=== PATIENT | male | born 1960 | race Caucasian/White ===

== ENCOUNTER → 2018-02-20 09:24 | Outpatient (CLI) | payer OTHER, SELFPAY ==
[2018-02-20 10:03] LABS: Hematocrit 45.6 % (41-53); Hemoglobin 15.8 g/dL (13.5-17.5); Mean Corpuscular HGB Conc 34.7 % (30-36); Mean Corpuscular Hemoglobin 30.5 PG (26-34); Platelet Count 305 X10^3/uL (150-400); Red Blood Cell Count 5.18 X10^6/uL (4.5-5.9); White Blood Cell Count 5.9 X10^3/uL (4.5-11.0)
[2018-02-20 10:50] LABS: Alanine Aminotransferase 35 IU/L (21-72); Albumin 4.6 g/dL (3.5-5.0); Albumin Globulin Ratio 1.6 (1.0-2.8); Alkaline Phosphatase 52 U/L (38-126); Aspartate Aminotransferase 22 IU/L (17-59); BUN Creatinine Ratio 17.8 (6-22); Bilirubin Total 0.9 mg/dL (0.2-1.3); Blood Urea Nitrogen 16 mg/dL (9-20); Calcium 9.5 mg/dL (8.4-10.2); Carbon Dioxide 31 mmol/L (22-32); Chloride 102 mmol/L (98-107); Cholesterol 209 mg/dL (140-199); Estimated Glomerular Filt Rate > 60.0 mL/min (>60); Globulin 2.9 g/dL (1.7-4.1); Glucose 99 mg/dL (70-100); HDL Cholesterol 54 mg/dL (40-60); HEMOLYSIS < 15 (0-50); LDL Cholesterol Calculated 140 mg/dL (<100); Potassium 4.8 mmol/L (3.4-5.1); Sodium 143 mmol/L (137-145); Total Protein 7.5 g/dL (6.3-8.2); Triglycerides 77 mg/dL (35-150)
[2018-02-20 11:13] LABS: Thyroid Stimulating Hormone 1.54 uIU/mL (0.47-4.68)
== END ==
DX: E78.5 Hyperlipidemia, unspecified (principal); I10 Essential (primary) hypertension
CPT/HCPCS: 36415; 80053; 80061; 84443; 85027

== ENCOUNTER 2019-04-29 16:03 | Emergency (ER) | payer OTHER, SELFPAY ==
[2019-04-29] VITALS (10 sets, daily range): BP systolic 138–167; BP diastolic 76–111; PULSE 74–87; RESP 15–21; TEMP 37–37.3; O2SAT 93–96; BMI 28.5
--- NOTE | 2019-04-29 16:11 | DI.RAD.S_ITS ---
PROCEDURE: XR CHEST 1V INDICATIONS: chest pain TECHNIQUE: One view of the chest was acquired. COMPARISON: [facility], , CHEST 1 VIEW, 03/08/2016, 18:36. FINDINGS: Surgical changes and devices: None. Lungs and pleura: Lungs are clear. No pleural effusions or pneumothorax. Mediastinum: Mediastinal contours appear normal. Heart size is normal. Bones and chest wall: No suspicious bony lesions. Overlying soft tissues appear unremarkable. IMPRESSION: No acute disease Dictated by: Mitul Kraus M.D. on 04/29/2019 at 16:38 Approved by: Mitul Kraus M.D. on 04/29/2019 at 16:41
--- NOTE | 2019-04-29 16:14 | ED.CHESTPAIN ---
HPI - Chest Pain General Chief Complaint: Chest Pain Stated Complaint: chest discomfort Time Seen by Provider: 04/29/19 16:09 Source: patient Mode of arrival: Ambulatory History of Present Illness HPI narrative: The patient is a 58-year-old male with history of coronary artery disease and stent presenting with chest pain. He says it started suddenly today around 9:30 a.m. center of his chest radiating to bilateral back of his arm in the triceps area and between his shoulder blades. He says it has persisted throughout the day but has definitely let up. He denies any worsening with exertion. He denies any shortness of breath with exertion no palpitations. He did try and take 1 nitroglycerin but he says it did not help. He takes is aspirin daily at night. He is followed by cardiology Dr. Palmer. He states previously he passed his treadmill test an 3 weeks later required stents. This feels similar to his previous DC. MD complaint: chest pain Onset (ago): hour(s) Duration: constant Onset: during rest Pain location: substernal Severity: mild Related Data Home Medications Medication Instructions Recorded Confirmed aspirin 81 mg PO QPM #0 04/17/10 04/29/19 Co Q-10 1 cap PO QPM #0 09/08/16 04/29/19 irbesartan 75 mg PO QAM 04/29/19 04/29/19 irbesartan 150 mg PO QPM 04/29/19 04/29/19 Allergies Allergy/AdvReac Type Severity Reaction Status Date / Time latex [LATEX] Allergy Severe SWELLING, Verified 04/29/19 16:09 RASH, ITCHING venom-honey bee Allergy Intermediate SWELLING Verified 04/29/19 16:09 [BEE VENOM (HONEY BEE)] penicillin V [PENICILLIN V] Allergy Unknown Unknown - Verified 04/29/19 16:09 happened when he was a child Review of Systems Review of Systems Narrative: GENERAL: Denies chills, fatigue, malaise, fever, sweats, travel HEENT: Denies sinus pain, ear pain, sore throat, difficulty swallowing, neck pain RESPIRATORY: Denies dyspnea, cough, wheezing, hemoptysis, sputum. CARDIOVASCULAR: See HPI GASTROINTESTINAL: Denies nausea, vomiting, abdominal pain, diarrhea, constipation, melena. : Denies dysuria, frequency, incontinence, hematuria, urinary retention, flank pain. MUSCULOSKELETAL: Denies weakness, joint pain, or bony pain SKIN: No rash, no erythema, no pruritus NEUROLOGIC: Denies weakness, dizziness, headache, numbness, change in speech, confusion PSYCHIATRIC: No concerning psychosocial issues. 12 point review of systems is negative except for those stated above and HPI Patient History Medical History Coronary artery disease (Acute) alcohol intake frequency: 0-2 drinks per day Substance Use Type: does not use Exam Initial Vital Signs Initial Vital Signs: Vital Signs Temperature 99.1 F 04/29/19 16:09 GENERAL: Well-appearing, well-nourished and in no acute distress. HEENT: Head atraumatic,EOMI, pupils reactive, face symmetric, CARDIOVASCULAR: Regular rate and rhythm without murmurs, rubs or gallops. RESPIRATORY: Breath sounds equal bilaterally, no wheezes rales or rhonchi. ABDOMEN: Soft, nontender. Normoactive bowel sounds all 4 quadrants. No guarding or rebound. EXTREMITIES: Normal range of motion, no clubbing or edema. Neurovascularly intact NEUROLOGICAL: Alert and oriented x4.Normal gait and speech. Cranial nerves II through XII grossly intact. SKIN: Warm, dry, no laceration, no petechiae, no rashes or lesions. Course Orders Ordered: ED Orders 04/29/19 16:10 Complete Blood Count AUTO DIFF Stat Comprehensive Metabolic Panel Stat Lipase Stat Partial Thromboplastin Time Stat Prothrombin Time INR Stat Troponin & CK Cardiac Panel Stat 04/29/19 16:11 XR chest 1V Stat EKG-12 Lead Stat Heparin Sodium/Dextrose (Heparin Drip) 25,000 unit in 500 mls @ 20 mls/hr IV CONT PRASHANT; Protocol Last Admin: 04/29/19 17:44 Dose: 1,000 units/hr, 20 mls/hr Documented by: BONITA Discontinued Medications Aspirin (Aspirin Chew) 324 mg PO NOW ONE Stop: 04/29/19 16:24 Last Admin: 04/29/19 16:53 Dose: 324 mg Documented by: BONITA Heparin Sodium (Porcine) (Heparin) 5,000 unit IV NOW ONE Stop: 04/29/19 17:11 Last Admin: 04/29/19 17:40 Dose: 5,000 unit Documented by: BONITA Lorazepam (Ativan) 1 mg PO NOW ONE Stop: 04/29/19 17:27 Last Admin: 04/29/19 17:30 Dose: 1 mg Documented by: BONITA Metoprolol Tartrate (Lopressor) 25 mg PO NOW ONE Stop: 04/29/19 18:01 Last Admin: 04/29/19 18:26 Dose: 25 mg Documented by: BONITA Morphine Sulfate (Morphine) 2 mg IV NOW ONE Stop: 04/29/19 18:23 Last Admin: 04/29/19 18:26 Dose: 2 mg Documented by: BONITA Nitroglycerin (Nitrostat) 0.4 mg SL NOW ONE Stop: 04/29/19 16:24 Last Admin: 04/29/19 16:54 Dose: 0.4 mg Documented by: BONITA Vital Signs Vital signs: Vital Signs - 8 hr 04/29/19 16:09 04/29/19 16:30 04/29/19 16:54 Temperature 99.1 F Pulse Rate 82 87 Respiratory Rate 16 Blood Pressure 144/76 H Blood Pressure [Right Arm] 144/76 H Pulse Oximetry 96 04/29/19 17:31 04/29/19 18:41 Temperature Pulse Rate 86 81 Respiratory Rate 21 18 Blood Pressure Blood Pressure [Right Arm] 148/86 H 154/95 H Pulse Oximetry 93 94 MDM - Chest Pain Lab Data Attestation: I reviewed the patient's lab results. Result diagrams: 04/29/19 16:10 04/29/19 16:10 Labs: Lab Results 04/29/19 04/29/19 04/29/19 Range/Units 16:10 16:10 16:10 WBC 8.1 (4.5-11.0) X10^3/uL RBC 4.86 (4.5-5.9) X10^6/uL Hgb 15.0 (13.5-17.5) g/dL Hct 42.9 (41-53) % MCV 88.3 (80-100) fL MCH 30.8 (26-34) PG MCHC 34.8 (30-36) % RDW 12.9 (11.6-14.8) % Plt Count 328 (150-400) X10^3/uL Neut % (Auto) 66.0 (50-75) % Lymph % (Auto) 24.1 L (25-40) % [place] % (Auto) 8.0 (3-14) % Eos % (Auto) 1.3 L (2-4) % Baso % (Auto) 0.6 (0-2) % Neut # (Auto) 5400 (6215-8211) /uL Lymph # (Auto) 2000 (7927-4988) /uL [place] # (Auto) 700 (0-900) /uL Eos # (Auto) 100 (0-450) /uL Baso # (Auto) 0 (0-100) /uL PT 10.9 (10.1-12.7) SECONDS INR 1.0 (0.9-1.3) APTT 31 (26.4-36.2) SECONDS Sodium 136 L (137-145) mmol/L Potassium 4.1 (3.4-5.1) mmol/L Chloride 99 (98-107) mmol/L Carbon Dioxide 28 (22-32) mmol/L BUN 20 (9-20) mg/dL Creatinine 1.00 (0.66-1.25) mg/dL Estimated GFR > 60.0 (>60) mL/min BUN/Creatinine Ratio 20.0 (6-22) Glucose 142 H (70-100) mg/dL Calcium 9.4 (8.4-10.2) mg/dL Total Bilirubin 0.6 (0.2-1.3) mg/dL AST 33 (17-59) IU/L ALT 39 (<50) IU/L Alkaline Phosphatase 63 (38-126) U/L Total Creatine Kinase 74 (55-170) U/L CK-MB (CK-2) TNP CK-MB (CK-2) Rel Index TNP Troponin I 0.641 H* (0.01-0.034) ng/mL Total Protein 7.5 (6.3-8.2) g/dL Albumin 4.7 (3.5-5.0) g/dL Globulin 2.8 (1.7-4.1) g/dL Albumin/Globulin Ratio 1.7 (1.0-2.8) Lipase 170 (23-300) U/L Imaging Data Chest x-ray: Radiologist's impression: PROCEDURE: XR CHEST 1V INDICATIONS: chest pain TECHNIQUE: One view of the chest was acquired. COMPARISON: [facility], , CHEST 1 VIEW, 03/08/2016, 18:36. FINDINGS: Surgical changes and devices: None. Lungs and pleura: Lungs are clear. No pleural effusions or pneumothorax. Mediastinum: Mediastinal contours appear normal. Heart size is normal. Bones and chest wall: No suspicious bony lesions. Overlying soft tissues appear unremarkable. IMPRESSION: No acute disease Dictated by: Mitul Kraus M.D. on 04/29/2019 at 16:38 ECG Data Attestation: I personally reviewed and interpreted this ECG as follows: Prior ECG tracings: available for review Interpretation: EKG 1. Normal sinus rhythm rate 89 p.r. interval 156 QRS [address] elevation depression or T-wave inversion Q-waves noted in lead 3 and AVF but no changes from 2016 EKG 2. Sinus rhythm rate 93 no changes MDM Narrative Medical decision making narrative: 17:52 cardiology out of telling him doctor Richard was an update on patient's symptoms test results agrees with transfer and patient likely to have a heart catheterization. Trauma were the patient is on heparin and recommends patient also get Lopressor as well. 18:00 Dr. Dodd hospitalist at [facility] has been updated patient's symptoms test results and agrees with transfer. Patient was given nitroglycerin aspirin upon arrival he states the nitroglycerin did not help his pain significantly. Troponin returned and elevated 0.64, cut off is 0.12. Heparin drip is started. He continues to have pain in his quite anxious about the situation he is given morphine and Ativan which has seemed to help. He agrees with transfer to [facility] for further testing and evaluation. Discharge Plan Departure Patient Disposition: Home Clinical Impression: Acute non-ST elevation myocardial infarction (NSTEMI) Prescriptions: No Action aspirin 81 mg Tablet,Delayed Release (Dr/Ec) 81 mg PO QPM Qty: 0 RF: 0 Co Q-10 1 cap PO QPM Qty: 0 RF: 0 irbesartan 150 mg tablet 75 mg PO QAM RF: 0 irbesartan 150 mg tablet 150 mg PO QPM RF: 0
[2019-04-29 16:18] LABS: Add Manual Diff / Slide Review NO; Basophils Absolute Auto 0 /uL (0-100); Basophils Percent Auto 0.6 % (0-2); Eosinophils Absolute Auto 100 /uL (0-450); Eosinophils Percent Auto 1.3 % (2-4); Hematocrit 42.9 % (41-53); Lymphocytes Absolute Auto 2000 /uL (1100-4500); Lymphocytes Percent Auto 24.1 % (25-40); Mean Corpuscular HGB Conc 34.8 % (30-36); Mean Corpuscular Hemoglobin 30.8 PG (26-34); Mean Corpuscular Volume 88.3 fL (80-100); Monocytes Absolute Auto 700 /uL (0-900); Neutrophils Absolute Auto 5400 /uL (1500-7000); Platelet Count 328 X10^3/uL (150-400); Red Blood Cell Count 4.86 X10^6/uL (4.5-5.9); Red Cell Distribution Width 12.9 % (11.6-14.8); White Blood Cell Count 8.1 X10^3/uL (4.5-11.0)
[2019-04-29 16:25] LABS: Prothrombin Time 10.9 SECONDS (10.1-12.7)
[2019-04-29 16:28] LABS: PTT Partial Thromboplastin Tim 31 SECONDS (26.4-36.2)
[2019-04-29 16:32] LABS: Alanine Aminotransferase 39 IU/L (<50); Albumin 4.7 g/dL (3.5-5.0); Albumin Globulin Ratio 1.7 (1.0-2.8); Alkaline Phosphatase 63 U/L (38-126); Aspartate Aminotransferase 33 IU/L (17-59); Bilirubin Total 0.6 mg/dL (0.2-1.3); Blood Urea Nitrogen 20 mg/dL (9-20); Calcium 9.4 mg/dL (8.4-10.2); Carbon Dioxide 28 mmol/L (22-32); Chloride 99 mmol/L (98-107); Creatine Kinase 74 U/L (55-170); Estimated Glomerular Filt Rate > 60.0 mL/min (>60); Globulin 2.8 g/dL (1.7-4.1); Glucose 142 mg/dL (70-100); HEMOLYSIS 18 (0-50); Lipase 170 U/L (23-300); Potassium 4.1 mmol/L (3.4-5.1); Sodium 136 mmol/L (137-145); Total Protein 7.5 g/dL (6.3-8.2)
[2019-04-29] MEDS: ASPIRIN 81 MG CHEW TAB 324 MG PO (16:53)
[2019-04-29] MEDS: NITROGLYCERIN 0.4 MG SL TAB SL (16:54)
[2019-04-29 17:06] LABS: Troponin I 0.641 ng/mL (0.01-0.034)
[2019-04-29] MEDS: LORazepam 0.5 MG TABLET 1 MG PO (17:30)
[2019-04-29] MEDS: HEPARIN 5,000 UNIT/ML VIAL 5000 UNIT IV (17:40)
[2019-04-29] MEDS: HEPARIN DRIP 25,000 UNIT/500 ML IV.SOLN 20 UNIT IV (17:44)
[2019-04-29] MEDS: MORPHINE 2 MG/ML INJ IV ×2 (18:26→21:59)
[2019-04-29] MEDS: METOPROLOL IR 25 MG TABLET PO (18:26)
[2019-04-29] MEDS: LORazepam 2 MG/ML INJ 0.5 MG IV (21:54)
--- NOTE | 2019-05-25 20:38 | PC.NURSE ---
Late entry IV stop time: heparin gtt. Pt transferred with heparin drip still infusing at 20 mls/hr on 04/29/19 at 2210.
== END 2019-04-29 22:10 | disposition home or self-care (01) ==
PROVIDERS: Emergency Provider Emergency Medicine
DX: I21.4 Non-ST elevation (NSTEMI) myocardial infarction (principal); R79.89 Other specified abnormal findings of blood chemistry; I25.10 Atherosclerotic heart disease of native coronary artery without angina pectoris; Z95.5 Presence of coronary angioplasty implant and graft
CPT/HCPCS: 36415; 71045; 80053; 82550; 83690; 84484; 85025; 85610; 85730; 93005; 93010; 96365; 96366; 96375; 96376; 99285; 99291; 99292; J1644; J2060; J2270

== ENCOUNTER 2019-05-03 09:46 | Emergency (ER) | payer OTHER, SELFPAY ==
--- NOTE | 2019-05-03 09:59 | DI.RAD.S_ITS ---
PROCEDURE: XR CHEST 1V INDICATIONS: chest pain TECHNIQUE: One view of the chest was acquired. COMPARISON: [facility], CR, XR CHEST 1V, 04/29/2019, 16:19. FINDINGS: Surgical changes and devices: None. Lungs and pleura: A calcified nodule is identified within the left upper lobe that is unchanged since the prior study and likely represents a calcified granuloma. This has been present dating back to 2009. No focal pulmonary consolidation is evident. There is no effusion or pneumothorax. Mediastinum: Mediastinal contours appear normal. Heart size is normal. Bones and chest wall: No suspicious bony lesions. Degenerative changes of the spine and shoulders are not well characterized. Overlying soft tissues appear unremarkable. IMPRESSION: Stable chest. No acute cardiopulmonary process is evident. Dictated by: Prince Rodriguez M.D. on 05/03/2019 at 9:44 Approved by: Prince Rodriguez M.D. on 05/03/2019 at 9:45
[2019-05-03 10:00] VITALS: BP 154/69; PULSE 76; RESP 16; TEMP 36.7; O2SAT 99
--- NOTE | 2019-05-03 10:06 | ED.CHESTPAIN ---
HPI - Chest Pain General Chief Complaint: Chest Pain Stated Complaint: heart attack on monday/chest pain ongoing Time Seen by Provider: 05/03/19 09:48 Source: patient Mode of arrival: Family Vehicle Limitations: no limitations History of Present Illness HPI narrative: Patient is a 58-year-old male With known history of coronary artery disease, sent to [facility] 4 days ago for non-STEMI where he had stents placed again in the RCA. He had pain and discomfort afterwards what discharge was held due to pericarditis. He was discharged yesterday presenting with increasing chest pain today. It goes over to the right side of his chest no increased shortness of breath. It is not any worse with exertion or position. MD complaint: chest pain Related Data Home Medications Medication Instructions Recorded Confirmed aspirin 81 mg PO QPM #0 04/17/10 04/29/19 Co Q-10 1 cap PO QPM #0 09/08/16 04/29/19 irbesartan 75 mg PO QAM 04/29/19 04/29/19 irbesartan 150 mg PO QPM 04/29/19 04/29/19 Previous Rx's Medication Instructions Recorded hydrocodone-acetaminophen [Shields] 1 tab PO Q4-6H PRN #10 tab 05/03/19 Allergies Allergy/AdvReac Type Severity Reaction Status Date / Time latex [LATEX] Allergy Severe SWELLING, Verified 04/29/19 16:09 RASH, ITCHING venom-honey bee Allergy Intermediate SWELLING Verified 04/29/19 16:09 [BEE VENOM (HONEY BEE)] penicillin V [PENICILLIN V] Allergy Unknown Unknown - Verified 04/29/19 16:09 happened when he was a child topical antiseptic used Allergy Severe Rash Uncoded 04/29/19 19:40 before cath Review of Systems Review of Systems Narrative: GENERAL: Denies chills, fatigue, malaise, fever, sweats, travel HEENT: Denies sinus pain, ear pain, sore throat, difficulty swallowing, neck pain RESPIRATORY: Denies dyspnea, cough, wheezing, hemoptysis, sputum. CARDIOVASCULAR: See HPI GASTROINTESTINAL: Denies nausea, vomiting, abdominal pain, diarrhea, constipation, melena. : Denies dysuria, frequency, incontinence, hematuria, urinary retention, flank pain. MUSCULOSKELETAL: Denies weakness, joint pain, or bony pain SKIN: No rash, no erythema, no pruritus NEUROLOGIC: Denies weakness, dizziness, headache, numbness, change in speech, confusion PSYCHIATRIC: No concerning psychosocial issues. 12 point review of systems is negative except for those stated above and HPI Patient History Social History Smoking Status: Never smoker Smoking Status: Never smoker alcohol intake frequency: 0-2 drinks per day Substance Use Type: does not use Exam Initial Vital Signs Initial Vital Signs: Vital Signs Temperature 98.0 F 05/03/19 10:00 Pulse Rate 76 05/03/19 10:00 Respiratory Rate 16 05/03/19 10:00 Blood Pressure 154/69 H 05/03/19 10:00 Pulse Oximetry 99 05/03/19 10:00 GENERAL: Well-appearing, well-nourished and in no acute distress. HEENT: Head atraumatic,EOMI, pupils reactive, face symmetric, moist mucous membranes CARDIOVASCULAR: Regular rate and rhythm without murmurs, rubs or gallops. RESPIRATORY: Breath sounds equal bilaterally, no wheezes rales or rhonchi. ABDOMEN: Soft, nontender. Normoactive bowel sounds all 4 quadrants. No guarding or rebound. EXTREMITIES: Normal range of motion, no clubbing or edema. Neurovascularly intact NEUROLOGICAL: Alert and oriented x4.Normal gait and speech. Cranial nerves II through XII grossly intact. SKIN: Warm, dry, no laceration, no petechiae, no rashes or lesions. Course Orders Ordered: ED Orders 05/03/19 09:59 XR chest 1V Stat EKG-12 Lead Stat 05/03/19 10:03 Complete Blood Count AUTO DIFF Stat Comprehensive Metabolic Panel Stat Lipase Stat Partial Thromboplastin Time Stat Prothrombin Time INR Stat Troponin & CK Cardiac Panel Stat 05/03/19 11:19 CT angio chest PE protocol Stat 05/03/19 12:14 Troponin I Stat Discontinued Medications Ketorolac Tromethamine (Toradol) 30 mg IV NOW ONE Stop: 05/03/19 10:20 Last Admin: 05/03/19 10:35 Dose: 30 mg Documented by: ZARIA Lorazepam (Ativan) 0.5 mg IV NOW ONE Stop: 05/03/19 12:26 Last Admin: 05/03/19 12:48 Dose: 0.5 mg Documented by: ZARIA Morphine Sulfate (Morphine) 2 mg IV NOW ONE Stop: 05/03/19 10:07 Last Admin: 05/03/19 10:15 Dose: 2 mg Documented by: ZARIA Consultations Consultation #1: Dr. Solorzano, cardiology, updated patient's symptoms test results. Agrees with repeat troponin he has reviewed records. If repeat troponin is the same or lower can follow up outpatient Time: 11:17 Consultation #2: Dr. Solorzano recontact Repeat troponin is slightly more elevated, at this time no significant elevation. Recommend pain medication and outpatient follow-up. Time: 13:22 Vital Signs Vital signs: Vital Signs - 8 hr 05/03/19 12:14 05/03/19 13:00 05/03/19 13:30 Pulse Rate 62 61 62 Respiratory Rate 18 18 15 Blood Pressure [Right Arm] 135/83 136/83 128/86 Pulse Oximetry 99 97 96 MDM - Chest Pain Lab Data Attestation: I reviewed the patient's lab results. Result diagrams: 05/03/19 10:03 05/03/19 10:03 Labs: Lab Results 05/03/19 05/03/19 05/03/19 Range/Units 10:03 10:03 10:03 WBC 8.9 (4.5-11.0) X10^3/uL RBC 5.07 (4.5-5.9) X10^6/uL Hgb 15.6 (13.5-17.5) g/dL Hct 44.6 (41-53) % MCV 88.1 (80-100) fL MCH 30.8 (26-34) PG MCHC 35.0 (30-36) % RDW 13.0 (11.6-14.8) % Plt Count 324 (150-400) X10^3/uL Neut % (Auto) 70.2 (50-75) % Lymph % (Auto) 17.9 L (25-40) % [place] % (Auto) 7.9 (3-14) % Eos % (Auto) 3.4 (2-4) % Baso % (Auto) 0.6 (0-2) % Neut # (Auto) 6300 (1697-7145) /uL Lymph # (Auto) 1600 (6268-3942) /uL [place] # (Auto) 700 (0-900) /uL Eos # (Auto) 300 (0-450) /uL Baso # (Auto) 100 (0-100) /uL PT 11.2 (10.1-12.7) SECONDS INR 1.0 (0.9-1.3) APTT 34 D (26.4-36.2) SECONDS Sodium 140 (137-145) mmol/L Potassium 4.4 (3.4-5.1) mmol/L Chloride 104 (98-107) mmol/L Carbon Dioxide 26 (22-32) mmol/L BUN 17 (9-20) mg/dL Creatinine 0.90 (0.66-1.25) mg/dL Estimated GFR > 60.0 (>60) mL/min BUN/Creatinine Ratio 18.9 (6-22) Glucose 98 (70-100) mg/dL Calcium 10.4 H (8.4-10.2) mg/dL Total Bilirubin 0.9 (0.2-1.3) mg/dL AST 76 H (17-59) IU/L ALT 93 H (<50) IU/L Alkaline Phosphatase 65 (38-126) U/L Total Creatine Kinase 64 (55-170) U/L CK-MB (CK-2) TNP CK-MB (CK-2) Rel Index TNP Troponin I 0.924 H* (0.01-0.034) ng/mL Total Protein 8.4 H (6.3-8.2) g/dL Albumin 4.9 (3.5-5.0) g/dL Globulin 3.5 (1.7-4.1) g/dL Albumin/Globulin Ratio 1.4 (1.0-2.8) Lipase 131 (23-300) U/L // Range/Units 12:14 WBC (4.5-11.0) X10^3/uL RBC (4.5-5.9) X10^6/uL Hgb (13.5-17.5) g/dL Hct (41-53) % MCV (80-100) fL MCH (26-34) PG MCHC (30-36) % RDW (11.6-14.8) % Plt Count (150-400) X10^3/uL Neut % (Auto) (50-75) % Lymph % (Auto) (25-40) % [place] % (Auto) (3-14) % Eos % (Auto) (2-4) % Baso % (Auto) (0-2) % Neut # (Auto) (0200-9600) /uL Lymph # (Auto) (6467-8262) /uL [place] # (Auto) (0-900) /uL Eos # (Auto) (0-450) /uL Baso # (Auto) (0-100) /uL PT (10.1-12.7) SECONDS INR (0.9-1.3) APTT (26.4-36.2) SECONDS Sodium (137-145) mmol/L Potassium (3.4-5.1) mmol/L Chloride (98-107) mmol/L Carbon Dioxide (22-32) mmol/L BUN (9-20) mg/dL Creatinine (0.66-1.25) mg/dL Estimated GFR (>60) mL/min BUN/Creatinine Ratio (6-22) Glucose (70-100) mg/dL Calcium (8.4-10.2) mg/dL Total Bilirubin (0.2-1.3) mg/dL AST (17-59) IU/L ALT (<50) IU/L Alkaline Phosphatase (38-126) U/L Total Creatine Kinase (55-170) U/L CK-MB (CK-2) CK-MB (CK-2) Rel Index Troponin I 0.969 H* (0.01-0.034) ng/mL Total Protein (6.3-8.2) g/dL Albumin (3.5-5.0) g/dL Globulin (1.7-4.1) g/dL Albumin/Globulin Ratio (1.0-2.8) Lipase (23-300) U/L Imaging Data Chest x-ray: Radiologist's impression: PROCEDURE: XR CHEST 1V INDICATIONS: chest pain TECHNIQUE: One view of the chest was acquired. COMPARISON: [facility], , XR CHEST 1V, 04/29/2019, 16:19. FINDINGS: Surgical changes and devices: None. Lungs and pleura: A calcified nodule is identified within the left upper lobe that is unchanged since the prior study and likely represents a calcified granuloma. This has been present dating back to 2009. No focal pulmonary consolidation is evident. There is no effusion or pneumothorax. Mediastinum: Mediastinal contours appear normal. Heart size is normal. Bones and chest wall: No suspicious bony lesions. Degenerative changes of the spine and shoulders are not well characterized. Overlying soft tissues appear unremarkable. IMPRESSION: Stable chest. No acute cardiopulmonary process is evident. Dictated by: Prince Rodriguez M.D. on 05/03/2019 at 9:44 CT scan - chest: Radiologist's impression: PROCEDURE: CT ANGIO CHEST PE PROTOCOL INDICATIONS: chest pain post cardiac cath TECHNIQUE: After the administration of intravenous contrast, 2 mm thick sections acquired from the pulmonary apices to the posterior costophrenic angles. 3-dimensional maximum intensity projection (MIP) coronal and sagittal reformats were then acquired through the thorax. For radiation dose reduction, the following was used: automated exposure control, adjustment of mA and/or kV according to patient size. COMPARISON: None. FINDINGS: Image quality: Excellent. Pulmonary arteries: Pulmonary arteries are normal in size, and demonstrate no intraluminal filling defects to suggest central pulmonary embolism. Lungs and pleura: Lungs are clear. No pleural effusions or pneumothorax. Central and peripheral airways are patent. Mediastinum: Heart is enlarged, without pericardial effusion. Atherosclerotic calcifications are noted in the aorta, great vessels and the coronary vasculature. Endovascular stents noted in the coronary vasculature. No mediastinal or hilar adenopathy. Thoracic aorta is normal in caliber and enhancement. Esophagus is normal in caliber, without hiatal hernia. Bones and chest wall: No suspicious bony lesions. Ribs and thoracic spine appear intact throughout. Spine degenerative disc disease and facet arthropathy. Thyroid gland is within normal limits where visualized. No axillary or supraclavicular adenopathy. Abdomen: Visualized upper abdominal solid organs appear normal in the early arterial phase of enhancement. IMPRESSION: 1. No pulmonary embolus. 2. Cardiomegaly. 3. Atherosclerosis including dense atherosclerotic calcifications in the coronary vascular. Endovascular stents also noted in the coronary vasculature. Dictated by: Ninoska Alvarez MD, PhD on 05/03/2019 at 11:43 ECG Data Attestation: I personally reviewed and interpreted this ECG as follows: Prior ECG tracings: available for review Interpretation: Normal sinus rhythm rate 73 p.r. interval 149 QRS [address] elevation or depressions similar to previous EKG MDM Narrative Medical decision making narrative: The patient's old records have been reviewed peak troponin 1.7. Initial troponin 0.92 which is lower than what it has been. He is given morphine and Toradol to help with pain and possible pericarditis. Possible pericardial effusion from recent heart catheterization. CT also to rule out any sort of PE. CT was negative for PE and pericardial effusion. The patient's repeat troponin 0.96, spoke with cardiology not a significant elevation, recommends pain control and outpatient follow-up. I discussed all findings with the patient , Education has been performed regarding treatment plan, diagnosis, warning signs and symptoms and all concerns have been addressed. Verbally agree with and understood all of the above. Discharge Plan Departure Patient Disposition: Home Clinical Impression: Atypical chest pain Discharge Date/Time: 05/03/19 13:53 Instructions: DI for Atypical Chest Pain Activity Restrictions/Additional Instructions: *You have been diagnosed with atypical chest pain *What to do: At this time her CT scan is negative. Your troponin is generally trending downwards. *Continue to take medications as directed Shields 1 tablet every 6 hours needed for severe pain *Follow up with your primary care provider in 2-3 days Follow-up with cardiology *Return to ER if you should have increasing chest pain shortness of breath or any new, worsening or concerning symptoms CONTROLLED SUBSTANCE DISCHARGE (Narcotoic/benzodiazepine/Flexeril/Phenergan) 1. You have been prescribed narcotic medications, it does have acetaminophen/Tylenol/paracetamol in it so do not take extra Tylenol or Tylenol containing products 2. Please understand that we cannot provide further refills of narcotics, benzodiazepines or controlled substances through the ED and her pain management will need to be through your provider. 3. While on these medications you cannot drive or operate heavy machinery. 4. You cannot sign legal documents or perform any duties such as this. 5. As long as you're taking opiate pain medications he should also be taking a stool softener such as Colace, Dulcolax, MiraLAX or prune juice, to help avoid constipation. Prescriptions: New hydrocodone-acetaminophen [Shields] 5-325 mg tablet 1 tab PO Q4-6H PRN (Reason: pain) Qty: 10 RF: 0 No Action aspirin 81 mg Tablet,Delayed Release (Dr/Ec) 81 mg PO QPM Qty: 0 RF: 0 Co Q-10 1 cap PO QPM Qty: 0 RF: 0 irbesartan 150 mg tablet 75 mg PO QAM RF: 0 irbesartan 150 mg tablet 150 mg PO QPM RF: 0 Referrals: Peyton Raymond MD [Primary Care Provider] - Joel Andino MD [Non-Staff] -
[2019-05-03 10:10] LABS: Add Manual Diff / Slide Review NO; Basophils Absolute Auto 100 /uL (0-100); Basophils Percent Auto 0.6 % (0-2); Eosinophils Absolute Auto 300 /uL (0-450); Eosinophils Percent Auto 3.4 % (2-4); Hematocrit 44.6 % (41-53); Hemoglobin 15.6 g/dL (13.5-17.5); Lymphocytes Absolute Auto 1600 /uL (1100-4500); Lymphocytes Percent Auto 17.9 % (25-40); Mean Corpuscular Hemoglobin 30.8 PG (26-34); Mean Corpuscular Volume 88.1 fL (80-100); Monocytes Absolute Auto 700 /uL (0-900); Monocytes Percent Auto 7.9 % (3-14); Neutrophils Absolute Auto 6300 /uL (1500-7000); Neutrophils Percent Auto 70.2 % (50-75); Platelet Count 324 X10^3/uL (150-400); Red Blood Cell Count 5.07 X10^6/uL (4.5-5.9); White Blood Cell Count 8.9 X10^3/uL (4.5-11.0)
[2019-05-03] MEDS: MORPHINE 2 MG/ML INJ IV (10:15)
[2019-05-03 10:17] LABS: Prothrombin Time 11.2 SECONDS (10.1-12.7)
[2019-05-03 10:19] LABS: PTT Partial Thromboplastin Tim 34 SECONDS (26.4-36.2)
[2019-05-03 10:21] LABS: Alanine Aminotransferase 93 IU/L (<50); Albumin 4.9 g/dL (3.5-5.0); Albumin Globulin Ratio 1.4 (1.0-2.8); Alkaline Phosphatase 65 U/L (38-126); Aspartate Aminotransferase 76 IU/L (17-59); BUN Creatinine Ratio 18.9 (6-22); Bilirubin Total 0.9 mg/dL (0.2-1.3); Blood Urea Nitrogen 17 mg/dL (9-20); Calcium 10.4 mg/dL (8.4-10.2); Carbon Dioxide 26 mmol/L (22-32); Chloride 104 mmol/L (98-107); Creatine Kinase 64 U/L (55-170); Estimated Glomerular Filt Rate > 60.0 mL/min (>60); Globulin 3.5 g/dL (1.7-4.1); Glucose 98 mg/dL (70-100); HEMOLYSIS < 15 (0-50); Lipase 131 U/L (23-300); Potassium 4.4 mmol/L (3.4-5.1); Sodium 140 mmol/L (137-145); Total Protein 8.4 g/dL (6.3-8.2)
[2019-05-03] MEDS: KETOROLAC 60 MG/2 ML VIAL 30 MG IV (10:35)
[2019-05-03 10:55] LABS: Troponin I 0.924 ng/mL (0.01-0.034)
--- NOTE | 2019-05-03 11:19 | DI.CT.S_ITS ---
PROCEDURE: CT ANGIO CHEST PE PROTOCOL INDICATIONS: chest pain post cardiac cath TECHNIQUE: After the administration of intravenous contrast, 2 mm thick sections acquired from the pulmonary apices to the posterior costophrenic angles. 3-dimensional maximum intensity projection (MIP) coronal and sagittal reformats were then acquired through the thorax. For radiation dose reduction, the following was used: automated exposure control, adjustment of mA and/or kV according to patient size. COMPARISON: None. FINDINGS: Image quality: Excellent. Pulmonary arteries: Pulmonary arteries are normal in size, and demonstrate no intraluminal filling defects to suggest central pulmonary embolism. Lungs and pleura: Lungs are clear. No pleural effusions or pneumothorax. Central and peripheral airways are patent. Mediastinum: Heart is enlarged, without pericardial effusion. Atherosclerotic calcifications are noted in the aorta, great vessels and the coronary vasculature. Endovascular stents noted in the coronary vasculature. No mediastinal or hilar adenopathy. Thoracic aorta is normal in caliber and enhancement. Esophagus is normal in caliber, without hiatal hernia. Bones and chest wall: No suspicious bony lesions. Ribs and thoracic spine appear intact throughout. Spine degenerative disc disease and facet arthropathy. Thyroid gland is within normal limits where visualized. No axillary or supraclavicular adenopathy. Abdomen: Visualized upper abdominal solid organs appear normal in the early arterial phase of enhancement. IMPRESSION: 1. No pulmonary embolus. 2. Cardiomegaly. 3. Atherosclerosis including dense atherosclerotic calcifications in the coronary vascular. Endovascular stents also noted in the coronary vasculature. Dictated by: Ninoska Alvarez MD, PhD on 05/03/2019 at 11:43 Approved by: Ninoska Alvarez MD, PhD on 05/03/2019 at 11:47
[2019-05-03 12:14] VITALS: BP 135/83; PULSE 62; RESP 18; O2SAT 99
[2019-05-03] MEDS: LORazepam 2 MG/ML INJ 0.5 MG IV (12:48)
[2019-05-03 12:51] LABS: Troponin I 0.969 ng/mL (0.01-0.034)
[2019-05-03 13:00] VITALS: BP 136/83; PULSE 61; RESP 18; O2SAT 97
[2019-05-03 13:30] VITALS: BP 128/86; PULSE 62; RESP 15; O2SAT 96
== END 2019-05-03 13:53 | disposition home or self-care (01) ==
PROVIDERS: Emergency Provider Emergency Medicine; PCP Student in an Organized Health Care Education/Training Program
DX: R07.89 Other chest pain (principal)
CPT/HCPCS: 36415; 71045; 71275; 80053; 82550; 83690; 84484; 85025; 85610; 85730; 93005; 93010; 96374; 96375; 99284; 99285; J1885; J2060; J2270; Q9967

== ENCOUNTER 2019-06-05 18:48 | Emergency (ER) | payer OTHER, SELFPAY ==
--- NOTE | 2019-06-05 18:57 | ED_ITS ---
HPI - Fall General Chief Complaint: Fall Stated Complaint: fall, hit back of head, on thinners Time Seen by Provider: 06/05/19 18:56 Related Data Home Medications Medication Instructions Recorded Confirmed aspirin 81 mg PO QPM #0 04/17/10 04/29/19 Co Q-10 1 cap PO QPM #0 09/08/16 04/29/19 irbesartan 75 mg PO QAM 04/29/19 04/29/19 irbesartan 150 mg PO QPM 04/29/19 04/29/19 Previous Rx's Medication Instructions Recorded hydrocodone-acetaminophen [[place]] 1 tab PO Q4-6H PRN #10 tab 05/03/19 Allergies Allergy/AdvReac Type Severity Reaction Status Date / Time latex [LATEX] Allergy Severe SWELLING, Verified 04/29/19 16:09 RASH, ITCHING venom-honey bee Allergy Intermediate SWELLING Verified 04/29/19 16:09 [BEE VENOM (HONEY BEE)] penicillin V [PENICILLIN V] Allergy Unknown Unknown - Verified 04/29/19 16:09 happened when he was a child topical antiseptic used Allergy Severe Rash Uncoded 04/29/19 19:40 before cath Patient History Social History Smoking Status: Never smoker Smoking Status: Never smoker alcohol intake frequency: 0-2 drinks per day Substance Use Type: does not use Discharge Plan Departure Prescriptions: No Action aspirin 81 mg Tablet,Delayed Release (Dr/Ec) 81 mg PO QPM Qty: 0 RF: 0 Co Q-10 1 cap PO QPM Qty: 0 RF: 0 irbesartan 150 mg tablet 75 mg PO QAM RF: 0 irbesartan 150 mg tablet 150 mg PO QPM RF: 0 hydrocodone-acetaminophen [[place]] 5-325 mg tablet 1 tab PO Q4-6H PRN (Reason: pain) Qty: 10 RF: 0
[2019-06-05 19:02] VITALS: BP 178/91; PULSE 95; RESP 18; TEMP 37.6; O2SAT 98; BMI 29.8
--- NOTE | 2019-06-05 19:07 | DI.RAD.S_ITS ---
PROCEDURE: XR THORACIC SPINE 2V INDICATIONS: fall, thoracic pain. TECHNIQUE: 2 views of the thoracic spine were acquired. COMPARISON: None. FINDINGS: Bones: No fractures or dislocations. No suspicious bony lesions. Degenerative endplate changes throughout mid to lower thoracic spine is seen. 12 pairs of ribs are noted, and appear intact where visualized. Soft tissues: No paravertebral stripe thickening. IMPRESSION: No acute thoracic spine fracture or dislocation. Degenerative disc disease in mid to lower thoracic spine. Dictated by: Shaq Lynn M.D. on 06/05/2019 at 19:48 Approved by: Shqa Lnyn M.D. on 06/05/2019 at 19:49
--- NOTE | 2019-06-05 19:07 | DI.CT.S_ITS ---
PROCEDURE: CT HEAD/BRAIN WO CON INDICATIONS: FAll, on blood thinner TECHNIQUE: Noncontrast 4.5 mm thick angled axial sections acquired from the foramen magnum to the vertex, with coronal and sagittal reformats. For radiation dose reduction, the following was used: automated exposure control, adjustment of mA and/or kV according to patient size. COMPARISON: None. FINDINGS: Image quality: Excellent. CSF spaces: Basal cisterns are patent. No extra-axial fluid collections. Ventricles are normal in size and shape. Brain: No midline shift. No intracranial masses or hemorrhage. Truong-white matter interface is normal. Skull and face: Calvarium and visualized facial bones are intact, without suspicious lesions. Sinuses: Visualized sinuses and mastoids are clear. IMPRESSION: No CT evidence of acute intracranial pathology. No acute skull fracture. Dictated by: Shaq Lynn M.D. on 06/05/2019 at 19:42 Approved by: Shaq Lynn M.D. on 06/05/2019 at 19:42
--- NOTE | 2019-06-05 19:07 | DI.CT.S_ITS ---
PROCEDURE: CT CERVICAL SPINE WO CON INDICATIONS: Fall, neck pain TECHNIQUE: Noncontrast 3 mm thick sections acquired from the skull base to the T4 level. Sagittal and coronal reformats were then constructed. For radiation dose reduction, the following was used: automated exposure control, adjustment of mA and/or kV according to patient size. COMPARISON: None. FINDINGS: Image quality: Excellent. Bones: No fractures or dislocations. Visualized superior ribs are intact. Decrease in intervertebral disc space and degenerative endplate changes are noted throughout cervical spine more prominent at C3-4 through C5-6 levels with mild to moderate central canal stenosis and bilateral neuroforaminal narrowing. Soft tissues: Prevertebral soft tissues are normal in thickness. No paravertebral hematomas. No apical pneumothoraces. IMPRESSION: 1. No acute cervical spine fracture or dislocation. 2. Degenerative disc disease throughout cervical spine as above. Dictated by: Shaq Lynn M.D. on 06/05/2019 at 19:42 Approved by: Shaq Lynn M.D. on 06/05/2019 at 19:44
--- NOTE | 2019-06-05 19:20 | ED.FALL ---
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 He states he was walking up the driveway when he slipped and fell backwards hitting the back of his head. He states everything turned white and then the last thing he remembers is walking up the driveway. He states his noticed that he was initially talking a bit slower a few minutes. Patient reports this fall happened around 1:00 p.m. today. He complains of a dull aching occipital headache which he describes as a 2/10 With associated right-sided neck pain and thoracic back pain that is worse with palpation and movement. He also reports left shoulder pain which has been ongoing for the past week which he was going to see his primary care provider about this, however, he is unsure if he fell on his left shoulder. Patient states the pain is worse when he extends his arm. He denies any chest pain, shortness of breath, dizziness, vision changes, vision loss, double vision, blurry vision, difficulty speaking at this time, nausea, vomiting, abdominal pain, diarrhea, fevers, chills, or other concerns. Patient states he called his hat measurer and was told to come to the emergency department for evaluation because he is on blood thinners. Modified trauma called. Related Data Home Medications Medication Instructions Recorded Confirmed aspirin 81 mg PO QPM #0 04/17/10 04/29/19 Co Q-10 1 cap PO QPM #0 09/08/16 04/29/19 irbesartan 75 mg PO QAM 04/29/19 04/29/19 irbesartan 150 mg PO QPM 04/29/19 04/29/19 Previous Rx's Medication Instructions Recorded hydrocodone-acetaminophen [[place]] 1 tab PO Q4-6H PRN #10 tab 05/03/19 Allergies Allergy/AdvReac Type Severity Reaction Status Date / Time latex [LATEX] Allergy Severe SWELLING, Verified 04/29/19 16:09 RASH, ITCHING venom-honey bee Allergy Intermediate SWELLING Verified 04/29/19 16:09 [BEE VENOM (HONEY BEE)] penicillin V [PENICILLIN V] Allergy Unknown Unknown - Verified 04/29/19 16:09 happened when he was a child topical antiseptic used Allergy Severe Rash Uncoded 04/29/19 19:40 before cath Review of Systems <GRACE Pichardo - Last Filed: 06/05/19 20:30> Review of Systems Narrative: REVIEW OF SYSTEMS: GENERAL: Denies fever or chills. HENT: Patient reports hitting his head, see HPI. EYES: No loss of vision, double vision, eye pain, or irritation. CARDIOVASCULAR: No chest pain or syncope. RESPIRATORY: No shortness of breath or cough. GASTROINTESTINAL: No nausea, vomiting, diarrhea, or constipation. GENITOURINARY: No flank pain or dysuria. MUSCULOSKELETAL: Patient reports neck pain, thoracic pain, and left shoulder pain, see HPI. INTEGUMENTARY: No rash, lesions, or pruritus. NEURO: No numbness, tingling, memory loss, or confusion. PSYCH: No behavior or mood changes. Patient History <GRACE Pichardo - Last Filed: 06/05/19 20:30> Medical History Coronary artery disease (Acute) Social History Smoking Status: Never smoker Smoking Status: Never smoker alcohol intake frequency: 0-2 drinks per day Substance Use Type: does not use Exam <GRACE Pichardo - Last Filed: 06/05/19 20:30> Initial Vital Signs Initial Vital Signs: Vital Signs Temperature 99.6 F 06/05/19 19:02 Pulse Rate 95 H 06/05/19 19:02 Respiratory Rate 18 06/05/19 19:02 Blood Pressure 178/91 H 06/05/19 19:02 Pulse Oximetry 98 06/05/19 19:02 PHYSICAL EXAMINATION: GENERAL: Well groomed, alert, and cooperative. Answers questions promptly and appropriately. Vital signs noted. HENT: Normocephalic, a 4cm in diameter hematoma to occipital region, slight tenderness with palp. Ear canals patent. Oral mucosa is pink and moist. Facial features symmetrical. EYES: PERRLA, EOMIs, conjunctiva pink, sclera white, no periorbital swelling. NECK: Tenderness to upper thoracic spine with palpation, no step-offs or deformities, no swelling, no erythema or ecchymosis. Patient was placed in C-collar upon arrival. CHEST: Normal to inspection and without deformities. CARDIOVASCULAR: S1 and S2 sounds normal. Regular rate and rhythm, no murmurs, clicks, or bruits. No pedal edema. RESPIRATORY: Normal respiratory rate, trachea midline, airway patent. No stridor, nasal flaring or accessory muscle use. Lungs are clear in all zhang without wheeze, rhonchi, or crackles. GASTROINTESTINAL: Bowel sounds normoactive. Abdomen is soft and non-tender. No organomegaly. MUSCULOSKELETAL: Tenderness to left shoulder with palpations of biceps tendon insertion, Patient has full internal and external rotation and extension. However, shoulder extension causes pain. No clavicle or rib tenderness. Tenderness to thoracic paraspinal vertebral muscles. Normal gait and coordination. Equal tone and mass bilaterally. EXTREMITIES: CMS intact. Moves all extremities. SKIN: Warm, dry, soft, appropriate color for ethnicity. No lesions, rashes, or wounds. NEURO: Alert and Oriented X 3. Good coordination. CN III-XIII intact. No ataxia, or sensory deficits, or cognitive issues. PSYCH: Appropriate affect and mood. <Carla Louis DO - Last Filed: 06/05/19 21:25> Initial Vital Signs Initial Vital Signs: Vital Signs Temperature 99.6 F 06/05/19 19:02 Pulse Rate 95 H 06/05/19 19:02 Respiratory Rate 18 06/05/19 19:02 Blood Pressure 178/91 H 06/05/19 19:02 Pulse Oximetry 98 06/05/19 19:02 Scores <GRACE Pichardo - Last Filed: 06/05/19 20:30> GCS Sherry coma scale eye opening: Spontaneous Sherry coma scale verbal response: Orientated Sherry coma scale motor response: Obey commands Sherry coma scale total score: 15 NIH Stroke Scale Level of Conciousness: Alert, keenly responsive Ask month/age: Answers both questions correctly. Open/close eyes, close hand: Performs both tasks correctly Best gaze horizontal: Normal Visual zhang: No visual loss Facial palsy: Normal symetrical movement Left arm drift: No drift for full 10 sec Right arm drift: No drift for full 10 sec Left leg drift: No drift for full 10 sec Right leg drift: No drift for full 10 sec Limb ataxia: Absent Sensory on face/arms/legs: Normal, no sensory loss Best language: No aphasia, normal Dysarthria: Normal Extinction or inattention: No abnormality Total NIH Stroke scale score: 0 Course <GRACE Pichardo - Last Filed: 06/05/19 20:30> Orders Ordered: ED Orders 06/05/19 19:05 EKG-12 Lead Routine 06/05/19 19:07 CT cervical spine wo con Stat CT head/brain wo con Stat XR thoracic spine 2V Stat 06/05/19 19:17 Complete Blood Count AUTO DIFF Stat Comprehensive Metabolic Panel Stat Troponin & CK Cardiac Panel Stat 06/05/19 19:19 XR shoulder LT min 2V Stat Consultations Consultation #1: Patient staffed with Dr. Louis. Vital Signs Vital signs: Vital Signs - 8 hr 06/05/19 19:02 06/05/19 20:32 Temperature 99.6 F Pulse Rate 95 H 77 Respiratory Rate 18 17 Blood Pressure 178/91 H 143/92 H Pulse Oximetry 98 94 <Carla Louis DO - Last Filed: 06/05/19 21:25> Orders Ordered: ED Orders 06/05/19 19:05 EKG-12 Lead Routine 06/05/19 19:07 CT cervical spine wo con Stat CT head/brain wo con Stat XR thoracic spine 2V Stat 06/05/19 19:17 Complete Blood Count AUTO DIFF Stat Comprehensive Metabolic Panel Stat Troponin & CK Cardiac Panel Stat 06/05/19 19:19 XR shoulder LT min 2V Stat Vital Signs Vital signs: Vital Signs - 8 hr 06/05/19 19:02 06/05/19 20:32 Temperature 99.6 F Pulse Rate 95 H 77 Respiratory Rate 18 17 Blood Pressure 178/91 H 143/92 H Pulse Oximetry 98 94 MDM - Fall <GRACE Pichardo - Last Filed: 06/05/19 20:30> Medical Records Attestation: I reviewed the patient's medical records. Lab Data Attestation: I reviewed the patient's lab results. Result diagrams: 06/05/19 19:17 06/05/19 19:17 Labs: Lab Results 06/05/19 06/05/19 Range/Units 19:17 19:17 WBC 8.7 (4.5-11.0) X10^3/uL RBC 4.96 (4.5-5.9) X10^6/uL Hgb 15.0 (13.5-17.5) g/dL Hct 43.7 (41-53) % MCV 88.2 (80-100) fL MCH 30.3 (26-34) PG MCHC 34.4 (30-36) % RDW 13.5 (11.6-14.8) % Plt Count 292 (150-400) X10^3/uL Neut % (Auto) 71.4 (50-75) % Lymph % (Auto) 20.2 L (25-40) % [place] % (Auto) 7.2 (3-14) % Eos % (Auto) 0.8 L (2-4) % Baso % (Auto) 0.4 (0-2) % Neut # (Auto) 6200 (3882-9202) /uL Lymph # (Auto) 1800 (8458-4817) /uL [place] # (Auto) 600 (0-900) /uL Eos # (Auto) 100 (0-450) /uL Baso # (Auto) 0 (0-100) /uL Sodium 136 L (137-145) mmol/L Potassium 4.6 (3.4-5.1) mmol/L Chloride 101 (98-107) mmol/L Carbon Dioxide 25 (22-32) mmol/L BUN 18 (9-20) mg/dL Creatinine 1.00 (0.66-1.25) mg/dL Estimated GFR > 60.0 (>60) mL/min BUN/Creatinine Ratio 18.0 (6-22) Glucose 108 H (70-100) mg/dL Calcium 10.2 (8.4-10.2) mg/dL Total Bilirubin 0.6 (0.2-1.3) mg/dL AST 24 (17-59) IU/L ALT 28 (<50) IU/L Alkaline Phosphatase 66 (38-126) U/L Total Creatine Kinase 85 (55-170) U/L CK-MB (CK-2) TNP CK-MB (CK-2) Rel Index TNP Troponin I < 0.012 (0.01-0.034) ng/mL Total Protein 7.9 (6.3-8.2) g/dL Albumin 4.7 (3.5-5.0) g/dL Globulin 3.2 (1.7-4.1) g/dL Albumin/Globulin Ratio 1.5 (1.0-2.8) Imaging Data Extremity x-ray #1: Radiologist's Impression: [address] [place] [id number] XRay Report Signed Patient: Hamzah Villareal R#: [id number] : 1960Acct:[id number] Age/Sex: 58 / MDate of Service: 06/05/19 Loc: ED Accession Number: [id number] Procedure: XR shoulder LT min 2V Ordering Provider: Amee Mcnamara PROCEDURE: XR SHOULDER LT MIN 2V INDICATIONS: Left shoulder pain post fall TECHNIQUE: 3 views of the shoulder were acquired. COMPARISON: None. FINDINGS: Bones: No fractures or dislocations. No suspicious bony lesions. Mild to moderate acromioclavicular joint and glenohumeral joint osteoarthritic changes are seen. Visualized ribs appear intact. Soft tissues: No suspicious soft tissue calcifications. 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 No fracture or dislocation. Dictated by: Shaq Lynn M.D. on 06/05/2019 at 19:48 Approved by: Shaq Lynn M.D. on 06/05/2019 at 19:48 CT scan - head: Radiologist's Impression: [address] [address] [address] Scan Report Signed Patient: Hamzah Villareal R#: [id number] : 1960Acct:[id number] Age/Sex: 58 / MDate of Service: 06/05/19 Loc: ED Accession Number: [id number] Procedure: CT head/brain wo con Ordering Provider: Amee Mcnamara PROCEDURE: CT HEAD/BRAIN WO CON INDICATIONS: FAll, on blood thinner TECHNIQUE: Noncontrast 4.5 mm thick angled axial sections acquired from the foramen magnum to the vertex, with coronal and sagittal reformats. For radiation dose reduction, the following was used: automated exposure control, adjustment of mA and/or kV according to patient size. COMPARISON: None. FINDINGS: Image quality: Excellent. CSF spaces: Basal cisterns are patent. No extra-axial fluid collections. Ventricles are normal in size and shape. Brain: No midline shift. No intracranial masses or hemorrhage. Truong-white matter interface is normal. Skull and face: Calvarium and visualized facial bones are intact, without suspicious lesions. Sinuses: Visualized sinuses and mastoids are clear. IMPRESSION: No CT evidence of acute intracranial pathology. No acute skull fracture. Dictated by: Shaq Lynn M.D. on 06/05/2019 at 19:42 Approved by: Shaq Lynn M.D. on 06/05/2019 at 19:42 CT - cervical spine: Radiologist's Impression: [address] [address] [address] Scan Report Signed Patient: MonoHamzah JMR#: [id number] : 1960Acct:[id number] Age/Sex: 58 / MDate of Service: 06/05/19 Loc: ED Accession Number: [id number] Procedure: CT cervical spine wo con Ordering Provider: Amee Mcnamara PROCEDURE: CT CERVICAL SPINE WO CON INDICATIONS: Fall, neck pain TECHNIQUE: Noncontrast 3 mm thick sections acquired from the skull base to the T4 level. Sagittal and coronal reformats were then constructed. For radiation dose reduction, the following was used: automated exposure control, adjustment of mA and/or kV according to patient size. COMPARISON: None. FINDINGS: Image quality: Excellent. Bones: No fractures or dislocations. Visualized superior ribs are intact. Decrease in intervertebral disc space and degenerative endplate changes are noted throughout cervical spine more prominent at C3-4 through C5-6 levels with mild to moderate central canal stenosis and bilateral neuroforaminal narrowing. Soft tissues: Prevertebral soft tissues are normal in thickness. No paravertebral hematomas. No apical pneumothoraces. IMPRESSION: 1. No acute cervical spine fracture or dislocation. 2. Degenerative disc disease throughout cervical spine as above. Dictated by: Shaq Lynn M.D. on 06/05/2019 at 19:42 Approved by: Shaq Lynn M.D. on 06/05/2019 at 19:44 Thorascic Spine: Radiologist's Impression: [address] [address] XRay Report Signed Patient: MonoHamzah JMR#: [id number] : 1960Acct:[id number] Age/Sex: 58 / MDate of Service: 06/05/19 Loc: ED Accession Number: [id number] Procedure: XR thoracic spine 2V Ordering Provider: Amee Mcnamara PROCEDURE: XR THORACIC SPINE 2V INDICATIONS: fall, thoracic pain. TECHNIQUE: 2 views of the thoracic spine were acquired. COMPARISON: None. FINDINGS: Bones: No fractures or dislocations. No suspicious bony lesions. Degenerative endplate changes throughout mid to lower thoracic spine is seen. 12 pairs of ribs are noted, and appear intact where visualized. Soft tissues: No paravertebral stripe thickening. IMPRESSION: No acute thoracic spine fracture or dislocation. Degenerative disc disease in mid to lower thoracic spine. Dictated by: Shaq Lynn M.D. on 06/05/2019 at 19:48 Approved by: Shaq Lynn M.D. on 06/05/2019 at 19:49 ECG Data Interpretation: EKG given to Dr. Louis for interpretation. normal sinus rhythm, rate 91, QTC 370. no ST elevation or ST depression. T-wave changes noted to V1 and V2 in comparison to last EKG on 04/29/2019. MDM Narrative Medical decision making narrative: 58-year-old male presents to the ED for a fall with a head injury on blood thinners. Head CT, cervical spine CT, shoulder x-ray, and thoracic spine x-ray are negative for fractures or bleeds. Patient's neuro examination is without abnormalities. However, I suspect patient does have a concussion.Patient's lab work is within normal limits. Less suspicion for ACS due to normal troponin, lack of chest pain or other symptoms such as shortness of breath, and reproducible shoulder pain with palpation of the biceps tendon. There were small changes noted on EKG, this may be due to recent treatment for previous [place] as EKG, last EKG was compared with an EKg that was taken during an acute [place]. Patient was counseled extensively about care for concussions and to return emergency department if there's any new or worsening symptoms such as vomiting, worsening headache, slurred speech, or etc. Patient was instructed to follow up with his primary care provider for further evaluation of his left shoulder. Differential includes rotator cuff injury, biceps tendinitis, arthritis, and strain. Patient agreed with plan of care verbalized understanding. <Carla Louis, DO - Last Filed: 06/05/19 21:25> Lab Data Labs: Lab Results 06/05/19 06/05/19 Range/Units 19:17 19:17 WBC 8.7 (4.5-11.0) X10^3/uL RBC 4.96 (4.5-5.9) X10^6/uL Hgb 15.0 (13.5-17.5) g/dL Hct 43.7 (41-53) % MCV 88.2 (80-100) fL MCH 30.3 (26-34) PG MCHC 34.4 (30-36) % RDW 13.5 (11.6-14.8) % Plt Count 292 (150-400) X10^3/uL Neut % (Auto) 71.4 (50-75) % Lymph % (Auto) 20.2 L (25-40) % [place] % (Auto) 7.2 (3-14) % Eos % (Auto) 0.8 L (2-4) % Baso % (Auto) 0.4 (0-2) % Neut # (Auto) 6200 (9620-1735) /uL Lymph # (Auto) 1800 (6210-5456) /uL [place] # (Auto) 600 (0-900) /uL Eos # (Auto) 100 (0-450) /uL Baso # (Auto) 0 (0-100) /uL Sodium 136 L (137-145) mmol/L Potassium 4.6 (3.4-5.1) mmol/L Chloride 101 (98-107) mmol/L Carbon Dioxide 25 (22-32) mmol/L BUN 18 (9-20) mg/dL Creatinine 1.00 (0.66-1.25) mg/dL Estimated GFR > 60.0 (>60) mL/min BUN/Creatinine Ratio 18.0 (6-22) Glucose 108 H (70-100) mg/dL Calcium 10.2 (8.4-10.2) mg/dL Total Bilirubin 0.6 (0.2-1.3) mg/dL AST 24 (17-59) IU/L ALT 28 (<50) IU/L Alkaline Phosphatase 66 (38-126) U/L Total Creatine Kinase 85 (55-170) U/L CK-MB (CK-2) TNP CK-MB (CK-2) Rel Index TNP Troponin I < 0.012 (0.01-0.034) ng/mL Total Protein 7.9 (6.3-8.2) g/dL Albumin 4.7 (3.5-5.0) g/dL Globulin 3.2 (1.7-4.1) g/dL Albumin/Globulin Ratio 1.5 (1.0-2.8) ECG Data Attestation: I personally reviewed and interpreted this ECG as follows: Interpretation: Sinus rhythm rate of 91 P are 161 QRS 81 and QTC 370. Q-wave in 2 3 and AVF patient has a biphasic T-wave in V2 which appears changed from prior EKG from 04/29/2019. Otherwise appears similar. MDM Narrative Medical decision making narrative: Patient case was discussed. Imaging was reviewed as EKG. Discharge Plan Departure Patient Disposition: Home Clinical Impression: Closed head injury Qualifiers: Encounter type: initial encounter Qualified Code(s): S09.90XA - Unspecified injury of head, initial encounter Shoulder joint pain Qualifiers: Laterality: left Qualified Code(s): M25.512 - Pain in left shoulder Concussion Qualifiers: Encounter type: initial encounter Loss of consciousness presence/duration: without LOC Qualified Code(s): S06.0X0A - Concussion without loss of consciousness, initial encounter Discharge Date/Time: 06/05/19 20:33 Instructions: DI for Concussion, DI for Rotator Cuff Injury, Closed Head Injury Activity Restrictions/Additional Instructions: Thank you for entrusting me with your care today. As discussed, your head CT, neck CT, shoulder x-ray, and back x-ray are negative for any fractures or bleeds. It is very possible that you may have a concussion. You may have a headache and feel tired for the next week. You can take Tylenol for your pain. Follow-up with your primary care provider in 1-2 weeks for further evaluation. Please monitor your symptoms closely and return to the emergency department immediately if you develop syncope, vomiting, worsening headache, vision changes, dizziness, or other new or worsening concerns. Prescriptions: No Action aspirin 81 mg Tablet,Delayed Release (Dr/Ec) 81 mg PO QPM Qty: 0 RF: 0 Co Q-10 1 cap PO QPM Qty: 0 RF: 0 irbesartan 150 mg tablet 75 mg PO QAM RF: 0 irbesartan 150 mg tablet 150 mg PO QPM RF: 0 hydrocodone-acetaminophen [[place]] 5-325 mg tablet 1 tab PO Q4-6H PRN (Reason: pain) Qty: 10 RF: 0 Referrals: Peyton Raymond MD [Primary Care Provider] -
[2019-06-05 19:25] LABS: Add Manual Diff / Slide Review NO; Basophils Absolute Auto 0 /uL (0-100); Basophils Percent Auto 0.4 % (0-2); Eosinophils Absolute Auto 100 /uL (0-450); Eosinophils Percent Auto 0.8 % (2-4); Hematocrit 43.7 % (41-53); Lymphocytes Absolute Auto 1800 /uL (1100-4500); Lymphocytes Percent Auto 20.2 % (25-40); Mean Corpuscular HGB Conc 34.4 % (30-36); Mean Corpuscular Hemoglobin 30.3 PG (26-34); Mean Corpuscular Volume 88.2 fL (80-100); Monocytes Absolute Auto 600 /uL (0-900); Monocytes Percent Auto 7.2 % (3-14); Neutrophils Absolute Auto 6200 /uL (1500-7000); Neutrophils Percent Auto 71.4 % (50-75); Platelet Count 292 X10^3/uL (150-400); Red Blood Cell Count 4.96 X10^6/uL (4.5-5.9); Red Cell Distribution Width 13.5 % (11.6-14.8); White Blood Cell Count 8.7 X10^3/uL (4.5-11.0)
[2019-06-05 19:35] LABS: Alanine Aminotransferase 28 IU/L (<50); Albumin 4.7 g/dL (3.5-5.0); Albumin Globulin Ratio 1.5 (1.0-2.8); Alkaline Phosphatase 66 U/L (38-126); Aspartate Aminotransferase 24 IU/L (17-59); Bilirubin Total 0.6 mg/dL (0.2-1.3); Blood Urea Nitrogen 18 mg/dL (9-20); Calcium 10.2 mg/dL (8.4-10.2); Carbon Dioxide 25 mmol/L (22-32); Chloride 101 mmol/L (98-107); Creatine Kinase 85 U/L (55-170); Estimated Glomerular Filt Rate > 60.0 mL/min (>60); Globulin 3.2 g/dL (1.7-4.1); Glucose 108 mg/dL (70-100); HEMOLYSIS < 15 (0-50); Potassium 4.6 mmol/L (3.4-5.1); Sodium 136 mmol/L (137-145); Total Protein 7.9 g/dL (6.3-8.2)
[2019-06-05 19:47] LABS: Troponin I < 0.012 ng/mL (0.01-0.034)
[2019-06-05 20:32] VITALS: BP 143/92; PULSE 77; RESP 17; O2SAT 94
== END 2019-06-05 20:33 | disposition home or self-care (01) ==
PROVIDERS: Emergency Provider Nurse Practitioner; PCP Student in an Organized Health Care Education/Training Program
DX: S06.0X0A Concussion without loss of consciousness, initial encounter (principal); M25.512 Pain in left shoulder; M54.2 Cervicalgia; W01.0XXA Fall on same level from slipping, tripping and stumbling without subsequent striking against object, initial encounter; Z79.01 Long term (current) use of anticoagulants; Z79.82 Long term (current) use of aspirin
CPT/HCPCS: 36415; 70450; 72070; 72125; 73030; 80053; 82550; 84484; 85025; 93005; 99284; 99285

== ENCOUNTER 2019-10-30 18:30 | Emergency (ER) | payer OTHER, SELFPAY ==
[2019-10-30 18:40] VITALS: BP 180/92; PULSE 67; RESP 16; TEMP 36.6; O2SAT 99
[2019-10-30 19:11] LABS: Add Manual Diff / Slide Review NO; Basophils Absolute Auto 0 /uL (0-100); Basophils Percent Auto 0.6 % (0-2); Eosinophils Absolute Auto 200 /uL (0-450); Eosinophils Percent Auto 3.1 % (2-4); Hematocrit 40.8 % (41-53); Hemoglobin 14.2 g/dL (13.5-17.5); Lymphocytes Absolute Auto 2000 /uL (1100-4500); Lymphocytes Percent Auto 25.5 % (25-40); Mean Corpuscular HGB Conc 34.8 % (30-36); Mean Corpuscular Hemoglobin 30.6 PG (26-34); Monocytes Absolute Auto 600 /uL (0-900); Monocytes Percent Auto 7.6 % (3-14); Neutrophils Absolute Auto 5000 /uL (1500-7000); Neutrophils Percent Auto 63.2 % (50-75); Platelet Count 325 X10^3/uL (150-400); Red Blood Cell Count 4.64 X10^6/uL (4.5-5.9); Red Cell Distribution Width 13.4 % (11.6-14.8); White Blood Cell Count 7.9 X10^3/uL (4.5-11.0)
[2019-10-30 19:28] LABS: Prothrombin Time 11.3 SECONDS (10.1-12.7)
[2019-10-30 19:31] LABS: PTT Partial Thromboplastin Tim 32 SECONDS (26.4-36.2)
[2019-10-30 20:02] VITALS: BP 157/82; PULSE 76; O2SAT 95
--- NOTE | 2019-10-31 01:01 | ED_ITS ---
HPI - Extremity Problem <GRACE Philip - Last Filed: 10/31/19 01:25> General Chief complaint: Extremity Problem,Nontraumatic Stated complaint: Bruise On Back Of Right Leg, On Blood Thinners Time Seen by Provider: 10/30/19 18:36 Source: patient Mode of arrival: Ambulatory Limitations: no limitations History of Present Illness HPI Narrative: Is a 59-year-old male, nonsmoker, who presents to ED with chief complain of spontaneous bruise on his right posterior thigh. Patient reports he is taking baby aspirin and Brilinta daily as instructed does for status post 2 stent procedure in 04/2019 and 2009 due to [place]. Patient denies known injuries or trauma but noticed some discomfort when he was sitting on a chair since yesterday. Patient is here only because his insisted for an evaluation today in ED. patient is ambulatory without difficulty with good sensation distally. Patient reports he has frequent headaches since he had concussion in May 2019 and seems when he has high blood pressure, his headache gets worse.and denies any changes in headache. Related Data Home Medications Medication Instructions Recorded Confirmed aspirin 81 mg PO QPM #0 04/17/10 04/29/19 Co Q-10 1 cap PO QPM #0 09/08/16 04/29/19 irbesartan 75 mg PO QAM 04/29/19 04/29/19 irbesartan 150 mg PO QPM 04/29/19 04/29/19 ticagrelor [Brilinta] mg 10/31/19 Previous Rx's Medication Instructions Recorded hydrocodone-acetaminophen [Bapchule] 1 tab PO Q4-6H PRN #10 tab 05/03/19 Allergies Allergy/AdvReac Type Severity Reaction Status Date / Time latex [LATEX] Allergy Severe SWELLING, Verified 04/29/19 16:09 RASH, ITCHING venom-honey bee Allergy Intermediate SWELLING Verified 04/29/19 16:09 [BEE VENOM (HONEY BEE)] penicillin V [PENICILLIN V] Allergy Unknown Unknown - Verified 04/29/19 16:09 happened when he was a child topical antiseptic used Allergy Severe Rash Uncoded 04/29/19 19:40 before cath Review of Systems <GRACE Philip - Last Filed: 10/31/19 01:25> Review of Systems Narrative: General: Denies fever, chills, fatigue, malaise, sweats, bruises easily. HEENT: Denies sinus pain, ear pain, sore throat, difficulty swallowing, dizziness. Respiratory: Denies dyspnea, cough, wheezing, hemoptysis, sputum. Cardiovascular: Denies chest pain, palpitations, orthopnea, edema. Gastrointestinal: Denies nausea, vomiting, abdominal pain, diarrhea, constipation, melena. : Denies dysuria, frequency, incontinence, hematuria, urinary retention. Musculoskeletal: See HPI Skin: Denies rash, skin lesions, or other. Neurologic: Denies weakness, (+) frequent headache, numbness, change in speech, confusion, seizures, incoordination. Psychiatric: No concerning psychosocial issues. 12-point review of systems is negative except for those stated above. Patient History <GRACE Philip - Last Filed: 10/31/19 01:25> Medical History Coronary artery disease (Acute) Hyperlipidemia (Acute) Hypertension (Acute) Ulcerative colitis (Acute) Surgical History History of colon resection (Acute) Social History Smoking Status: Never smoker Smoking Status: Never smoker alcohol intake frequency: 0-2 drinks per day Substance Use Type: does not use Exam <GRACE Philip - Last Filed: 10/31/19 01:25> Narrative Exam Narrative: General appearance: well developed, well nourished, in no acute distress. Head: normocephalic, atraumatic, no scalp lesions, non-tender. ENT: Hearing grossly intact. Nose without bleeding, purulent discharge. Mucous membrane moist, no mucosal lesion. Airway patent. Neck/Thyroid: neck supple, full range of motion, no visible masses or meningeal signs. No JVD, non-tender without lymphadenopathy. Skin: no suspicious rashes, lesions over visible areas. Warm and dry and appropriate color for ethnicity. Heart: no clubbing, no cyanosis, no edema. S1 and S2 normal. RRR w/o murmurs, clicks, or bruits. Lungs: Breathing even and unlabored. No stridor. No accessory muscles used. Able to speak in full sentences. Chest: normal shape and expansion. Abdomen: non-obese, non-distended. Neurologic: alert and oriented. 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 Psych: good eye contact, normal affect. Initial Vital Signs Initial Vital Signs: Vital Signs Temperature 97.9 F 10/30/19 18:40 Pulse Rate 67 10/30/19 18:40 Respiratory Rate 16 10/30/19 18:40 Blood Pressure 180/92 H 10/30/19 18:40 Pulse Oximetry 99 10/30/19 18:40 Extrem Right lower extremity: hip/thigh Details: abnormal to inspection, tenderness (posterior thigh to palpate, mild), normal ROM and ecchymosis (dark color in posterior thigh); no swelling (but soft to palpate), no crepitus, no penetrating wound, no deformity and no unusual warmth, knee (positive popliteal pulse) and foot Details: toes with normal ROM, vascular exam Details: dorsalis pedis pulse present, tendon exam Details: active flexion normal and active extension normal and motor-sensory exam Details: light-touch normal <Jarred Tapia DO - Last Filed: 11/05/19 07:22> Initial Vital Signs Initial Vital Signs: Vital Signs Temperature 97.9 F 10/30/19 18:40 Pulse Rate 67 10/30/19 18:40 Respiratory Rate 16 10/30/19 18:40 Blood Pressure 180/92 H 10/30/19 18:40 Pulse Oximetry 99 10/30/19 18:40 Scores <GRACE Philip - Last Filed: 10/31/19 01:25> GCS [place] coma scale eye opening: Spontaneous [place] coma scale verbal response: Orientated Sherry coma scale motor response: Obey commands [place] coma scale total score: 15 Course <GRACE Philip - Last Filed: 10/31/19 01:25> Orders Ordered: ED Orders 10/30/19 19:05 Complete Blood Count AUTO DIFF Stat Partial Thromboplastin Time Stat Prothrombin Time INR Stat Vital Signs Vital signs: Vital Signs - 8 hr 10/30/19 18:40 10/30/19 20:02 Temperature 97.9 F Pulse Rate 67 76 Respiratory Rate 16 Blood Pressure 180/92 H 157/82 H Pulse Oximetry 99 95 <Jarred Tapia DO - Last Filed: 11/05/19 07:22> Orders Ordered: ED Orders 10/30/19 19:05 Complete Blood Count AUTO DIFF Stat Partial Thromboplastin Time Stat Prothrombin Time INR Stat Vital Signs Vital signs: Vital Signs - 8 hr 10/30/19 18:40 10/30/19 20:02 Temperature 97.9 F Pulse Rate 67 76 Respiratory Rate 16 Blood Pressure 180/92 H 157/82 H Pulse Oximetry 99 95 MDM - Extremity (Nontraumatic) <GRACE Philip - Last Filed: 10/31/19 01:25> Differential Diagnosis Differential diagnosis: Likely other (Superficial bruise, hematoma, compartment syndrome, supratherapeutic coag) Medical Records Attestation: I reviewed the patient's medical records. Lab Data Attestation: I reviewed the patient's lab results. Result diagrams: 10/30/19 19:05 Labs: Lab Results 10/30/19 10/30/19 Range/Units 19:05 19:05 WBC 7.9 (4.5-11.0) X10^3/uL RBC 4.64 (4.5-5.9) X10^6/uL Hgb 14.2 (13.5-17.5) g/dL Hct 40.8 L (41-53) % MCV 88.0 (80-100) fL MCH 30.6 (26-34) PG MCHC 34.8 (30-36) % RDW 13.4 (11.6-14.8) % Plt Count 325 (150-400) X10^3/uL Neut % (Auto) 63.2 (50-75) % Lymph % (Auto) 25.5 (25-40) % Johnston % (Auto) 7.6 (3-14) % Eos % (Auto) 3.1 (2-4) % Baso % (Auto) 0.6 (0-2) % Neut # (Auto) 5000 (0809-1424) /uL Lymph # (Auto) 2000 (1139-4852) /uL Johnston # (Auto) 600 (0-900) /uL Eos # (Auto) 200 (0-450) /uL Baso # (Auto) 0 (0-100) /uL PT 11.3 (10.1-12.7) SECONDS INR 1.0 (0.9-1.3) APTT 32 D (26.4-36.2) SECONDS MDM Narrative Medical decision making narrative: Large dark ecchymosis extends to most of his right posterior thigh without known trauma or injury. Patient's posterior thigh muscles are soft to paplate without exquisite tenderness to palpate. Patient reynolds s intact popliteal pulse distally. Strength in bilateral legs are equal with intact sensation distally. Positive dorsal pedal pulse distally. Patient agrees with blood test. H&H is stable as 14.2/40.8 with within normal platelet counts of 325. Coag test was unremarkable. Patient provided with Abram wrap to use as needed to prevent further bleeding into skin. Since patient's coag and platelet count is within normal, patient informed it is okay to continue with his medications at this time. Informed that discoloration may spread/move down to lower region with gravity as time goes by. Strict return precautions were discussed with patient with increasing pain, size of the thigh, fullness of muscle, or bruise and patient verbalized understanding and agreement with treatment plan. <Jarred Tapia, DO - Last Filed: 11/05/19 07:22> Lab Data Labs: Lab Results 10/30/19 10/30/19 Range/Units 19:05 19:05 WBC 7.9 (4.5-11.0) X10^3/uL RBC 4.64 (4.5-5.9) X10^6/uL Hgb 14.2 (13.5-17.5) g/dL Hct 40.8 L (41-53) % MCV 88.0 (80-100) fL MCH 30.6 (26-34) PG MCHC 34.8 (30-36) % RDW 13.4 (11.6-14.8) % Plt Count 325 (150-400) X10^3/uL Neut % (Auto) 63.2 (50-75) % Lymph % (Auto) 25.5 (25-40) % Johnston % (Auto) 7.6 (3-14) % Eos % (Auto) 3.1 (2-4) % Baso % (Auto) 0.6 (0-2) % Neut # (Auto) 5000 (0704-4310) /uL Lymph # (Auto) 2000 (3468-0375) /uL Johnston # (Auto) 600 (0-900) /uL Eos # (Auto) 200 (0-450) /uL Baso # (Auto) 0 (0-100) /uL PT 11.3 (10.1-12.7) SECONDS INR 1.0 (0.9-1.3) APTT 32 D (26.4-36.2) SECONDS Discharge Plan Departure Patient Disposition: Home Clinical Impression: Superficial bruising of thigh Qualifiers: Encounter type: initial encounter Laterality: right Qualified Code(s): S70.11XA - Contusion of right thigh, initial encounter Discharge Date/Time: 10/30/19 20:04 Instructions: Bruises (Alternative Therapy) Activity Restrictions/Additional Instructions: You have been diagnosed with [right posterior thigh bruise. There thigh feels soft. Blood tests are reassuring. Blood counts, platelets and coags tests are within normal limits.]. What to do: *Take your medications as directed. Please use Abram wrap that has been provided to you for support and to prevent increase in bleeding. *Follow up with your primary care provider in 2-3 days, call for an appointment. Let them know you were seen in the ED and that we asked you to be seen in follow up. *Return to ED if you have any new, worsening, or concerning symptoms, such as [increasing pain, increasing some size of your thigh, increasing bruise, chest pain, breathing difficulty, unable to tolerate fluids, fever, or any acute concerns. Then you may need repeat blood test and imaging test.]. Prescriptions: No Action aspirin 81 mg Tablet,Delayed Release (Dr/Ec) 81 mg PO QPM Qty: 0 RF: 0 Co Q-10 1 cap PO QPM Qty: 0 RF: 0 irbesartan 150 mg tablet 75 mg PO QAM RF: 0 irbesartan 150 mg tablet 150 mg PO QPM RF: 0 hydrocodone-acetaminophen [Bapchule] 5-325 mg tablet 1 tab PO Q4-6H PRN (Reason: pain) Qty: 10 RF: 0 Brilinta 90 mg tablet RF: 0 Referrals: Peyton Raymond MD [Primary Care Provider] - <Jarred Tapia DO - Last Filed: 11/05/19 07:22> Cosign ED Attending Cosignature Attestation: Dr aTpia Co-Sign Statement: I was available for consultation during this patient's emergency department visit. This chart is signed by myself for administrative purposes only. I did not have direct contact with this patient during this visit. They were seen independently by the APC.
== END 2019-10-30 20:04 | disposition home or self-care (01) ==
PROVIDERS: Emergency Provider Nurse Practitioner Family; PCP Student in an Organized Health Care Education/Training Program
DX: S70.11XA Contusion of right thigh, initial encounter (principal); Z79.82 Long term (current) use of aspirin
CPT/HCPCS: 36415; 85025; 85610; 85730; 99283

== ENCOUNTER 2019-11-21 16:17 | Emergency (ER) | payer OTHER, SELFPAY ==
[2019-11-21 16:20] VITALS: BP 181/107; PULSE 89; RESP 14; TEMP 36.9; O2SAT 98; BMI 29.1
[2019-11-21 16:34] VITALS: BP 175/91
--- NOTE | 2019-11-21 16:36 | ED.LOWEXIN ---
HPI - Extremity Injury (Lower) <Trang Akers PA-C - Last Filed: 11/21/19 23:49> General Chief Complaint: Extremity Injury, Lower Stated Complaint: LEFT LEG PAIN Time Seen by Provider: 11/21/19 16:35 Source: patient Mode of arrival: Ambulatory Limitations: no limitations History of Present Illness HPI Narrative: This is a 59-year-old non-smoking gentleman with history of CAD who presents to the emergency department complaining of left ankle pain following what he believes was an injury sustained yesterday while working. 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 A few hours later he was at rest and he realized he had significant pain in his left ankle and he felt like his range of motion was affected. He thinks that his Achilles tendon is not working normally. His pain continued to increase over the night to the point where today in the emergency department he says it is an 8/10. He says he really does not like to pop pills and he does not want anything for pain right now believes he is not supposed to be taking ibuprofen due to 1 of his medications and he is not interested in taking Tylenol because he says he is hoping to have a beer later and he does not like the idea of these interacting. He has not taken anything for pain he said last night he had ?a beer? and he has been walking on his left foot since this happened. He did use a ankle brace support on his left ankle this morning and this afternoon as the pain was increasing. He did not go to work today because of the pain. He denies any numbness, tingling, color change, pallor, significant swelling in the affected extremity, also denies nausea, vomiting, fever, diarrhea, shortness of breath, cough or any other symptoms. MD complaint: ankle injury Onset (ago): day(s) (1) Injury: Left: ankle Type of Injury: hyperflexion Place: work Severity: moderate Severity scale (1-10): 8 Relieving factors: rest Exacerbating factors: weight bearing, movement and palpation Context: other (pushing heavy wheelbarrow up steep hill) Associated symptoms: ambulatory Other symptoms: none Treatments prior to arrival: bandage Related Data Home Medications Medication Instructions Recorded Confirmed aspirin 81 mg PO QPM #0 04/17/10 04/29/19 Co Q-10 1 cap PO QPM #0 09/08/16 04/29/19 irbesartan 75 mg PO QAM 04/29/19 04/29/19 irbesartan 150 mg PO QPM 04/29/19 04/29/19 ticagrelor [Brilinta] mg 10/31/19 Previous Rx's Medication Instructions Recorded hydrocodone-acetaminophen [[place]] 1 tab PO Q4-6H PRN #10 tab 05/03/19 Allergies Allergy/AdvReac Type Severity Reaction Status Date / Time latex [LATEX] Allergy Severe SWELLING, Verified 11/21/19 16:24 RASH, ITCHING venom-honey bee Allergy Intermediate SWELLING Verified 11/21/19 16:24 [BEE VENOM (HONEY BEE)] penicillin V [PENICILLIN V] Allergy Unknown Unknown - Verified 11/21/19 16:24 happened when he was a child topical antiseptic used Allergy Severe Rash Uncoded 04/29/19 19:40 before cath Review of Systems <Trang Akers PA-C - Last Filed: 11/21/19 23:49> Review of Systems Narrative: GENERAL: Denies chills, fatigue, malaise, fever, sweats. HEENT: Denies sinus pain, ear pain, sore throat, difficulty swallowing, dizziness. RESPIRATORY: Denies dyspnea, cough, wheezing, hemoptysis, sputum. CARDIOVASCULAR: Denies chest pain, palpitations, orthopnea, edema, GASTROINTESTINAL: Denies nausea, vomiting, abdominal pain, diarrhea, constipation, melena. : Denies dysuria, frequency, incontinence, hematuria, urinary retention. MUSCULOSKELETAL: Positive for pain, weakness, reduced range of motion in his left ankle, he has been bearing weight since the event yesterday, denies any other weakness, joint pain, or bony pain SKIN: Denies rash, skin lesions, or other NEUROLOGIC: Denies weakness, headache, numbness, change in speech, confusion, seizures, incoordination. PSYCHIATRIC: No concerning psychosocial issues. 12 point review of systems is negative except for those stated above Patient History <Trang Akers PA-C - Last Filed: 11/21/19 23:49> Medical History Coronary artery disease (Acute) Hyperlipidemia (Acute) Hypertension (Acute) Ulcerative colitis (Acute) Surgical History History of colon resection (Acute) Social History Smoking Status: Never smoker Smoking Status: Never smoker alcohol intake frequency: 0-2 drinks per day Substance Use Type: does not use Exam <Trang Akers PA-C - Last Filed: 11/21/19 23:49> Narrative Exam Narrative: GENERAL: 59 year old patient appears stated age. Well-nourished, well-developed patient, in mild distress. HEAD: Atraumatic. Normocephalic. EYES: Pupils equal round and reactive. Extraocular motions intact. No scleral icterus. No injection or drainage. ENT: Nose without bleeding, purulent drainage. Throat without erythema, tonsillar hypertrophy or exudate. Airway patent. NECK: Trachea midline. Non tender CARDIOVASCULAR: Regular rate and rhythm without murmurs, gallops, or rubs. RESPIRATORY: Clear to auscultation. Breath sounds equal bilaterally. No wheezes, rales, or rhonchi. GASTROINTESTINAL: Abdomen soft, non-tender, nondistended. EXTREMITIES: There is tenderness at the Left lateral posterior malleolus with associated soft tissue swelling, there is distal left Achilles tendon tenderness, No other edema or joint tenderness. There is reduced range of motion with dorsiflexion and plantar flexion 2nd to pain and injury. Cuadra test is negative on the affected extremity. BACK: Nontender without deformity or crepitance. No flank tenderness. NEURO: AOx3. SKIN: No rash or erythema of visible areas. Area of injury is without heat, significant swelling, or pain out of proportion. Initial Vital Signs Initial Vital Signs: Vital Signs Temperature 98.5 F 11/21/19 16:20 Pulse Rate 89 11/21/19 16:20 Respiratory Rate 14 11/21/19 16:20 Blood Pressure 181/107 H 11/21/19 16:20 Pulse Oximetry 98 07/02/20 16:20 <DO Kathryn Stern Last Filed: 11/26/19 08:14> Initial Vital Signs Initial Vital Signs: Vital Signs Temperature 98.5 F 11/21/19 16:20 Pulse Rate 89 11/21/19 16:20 Respiratory Rate 14 11/21/19 16:20 Blood Pressure 181/107 H 11/21/19 16:20 Pulse Oximetry 98 11/21/19 16:20 Scores <Trang Akers PA-C - Last Filed: 11/21/19 23:49> GCS Sherry coma scale eye opening: Spontaneous [place] coma scale verbal response: Orientated [place] coma scale motor response: Obey commands [place] coma scale total score: 15 Course <LLUVIA Rivas Last Filed: 11/21/19 23:49> Orders Ordered: Discontinued Medications Oxycodone/Acetaminophen (Percocet 5/325) 1 tab PO NOW ONE Stop: 11/21/19 17:57 Last Admin: 11/21/19 18:32 Dose: 1 tab Documented by: IRMA Vital Signs Vital signs: Vital Signs - 8 hr 11/21/19 16:20 11/21/19 16:34 11/21/19 16:38 Temperature 98.5 F Pulse Rate 89 Pulse Rate [Left Dorsalis Pedis] 80 Respiratory Rate 14 Blood Pressure 181/107 H 175/91 H Pulse Oximetry 98 11/21/19 17:00 11/21/19 18:34 Temperature Pulse Rate 74 88 Pulse Rate [Left Dorsalis Pedis] Respiratory Rate 12 19 Blood Pressure 161/95 H Pulse Oximetry 95 98 <DO Kathryn Stern Last Filed: 11/26/19 08:14> Orders Ordered: Discontinued Medications Oxycodone/Acetaminophen (Percocet 5/325) 1 tab PO NOW ONE Stop: 11/21/19 17:57 Last Admin: 11/21/19 18:32 Dose: 1 tab Documented by: IRMA Vital Signs Vital signs: Vital Signs - 8 hr 11/21/19 16:20 11/21/19 16:34 11/21/19 16:38 Temperature 98.5 F Pulse Rate 89 Pulse Rate [Left Dorsalis Pedis] 80 Respiratory Rate 14 Blood Pressure 181/107 H 175/91 H Pulse Oximetry 98 11/21/19 17:00 11/21/19 18:34 Temperature Pulse Rate 74 88 Pulse Rate [Left Dorsalis Pedis] Respiratory Rate 12 19 Blood Pressure 161/95 H Pulse Oximetry 95 98 MDM - Extremity Injury (Lower) <Trang Akers PA-C - Last Filed: 11/21/19 23:49> Differential Diagnosis Differential diagnosis: Likely ankle sprain and strain, ankle fracture and other (achilles sprain) Medical Records Attestation: I reviewed the patient's medical records. Imaging Data Extremity x-ray #1: Attestation: I personally reviewed and interpreted this imaging study as follows: Radiologist's Impression: [address] [address] XRay Report Signed Patient: Hamzah Villareal JMR#: [id number] : 1960Acct:[id number] Age/Sex: 59 / MDate of Service: 11/21/19 Loc: ED Accession Number: [id number] Procedure: XR ankle LT min 3V Ordering Provider: Trang Akers P.A-C PROCEDURE: XR ANKLE LT MIN 3V INDICATIONS: left lateral ankle pain/achilles pain/injury TECHNIQUE: 3 views of the ankle were acquired. COMPARISON: None. FINDINGS: Bones: No fractures or dislocations. Sub-5 mm corticated ossicles project adjacent to the medial malleolus are radiographically these appear chronic. Plantar and posterior calcaneal spurs. Ankle mortise is normally aligned. No suspicious bony lesions. Soft tissues: No tibiotalar joint effusion. Achilles tendon appears normal. IMPRESSION: No fracture. If the patient's symptoms do not improve recommend followup radiographs in 10 days to assess for healing sclerosis/occult injury. Dictated by: Mitul Kraus M.D. on 11/21/2019 at 17:39 Approved by: Mitul Kraus M.D. on 11/21/2019 at 17:41 MDM Narrative Medical decision making narrative: This is a 59-year-old gentleman who is on blood thinners who presents to the emergency department following an injury to his left ankle he sustained yesterday while pushing a wheelbarrow uphill. Differential diagnoses considered include occult fracture, stress fracture, sprain, strain, Achilles tendon rupture. I have low suspicion for a Achilles tendon rupture, although he may have a strain/sprain of achilles tendon. Based on exam he very likely has a CFL sprain. X-rays were negative for fracture. Patient was discharged with Abram wrap, walking boot and crutches as well as PCP follow-up and ortho referral. He was advised to take Tylenol as needed for pain. 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 Was provided with emergency return precautions, all questions were answered. Discharge Plan Departure Patient Disposition: Home Clinical Impression: Sprain of ankle, calcaneofibular ligament Qualifiers: Encounter type: initial encounter Laterality: left Qualified Code(s): S93.412A - Sprain of calcaneofibular ligament of left ankle, initial encounter Achilles tendon sprain Qualifiers: Encounter type: initial encounter Laterality: left Qualified Code(s): S86.012A - Strain of left Achilles tendon, initial encounter Discharge Date/Time: 11/21/19 19:02 Instructions: DI for Ankle Sprain, How To Perform RICE (Rest, Ice, Compress, Elevate) Activity Restrictions/Additional Instructions: Thank you for letting us a part of your care in the emergency department today. There is no evidence of an emergent or life threatening illness at this time, but follow up with your doctor in 1-2 days is recommended nonetheless to continue to rule out serious underlying causes of your symptoms. Please call the office for an appointment. Please return to the Emergency Department for any worsening or persistent symptoms. Please take medications as directed. I suspect that you have a sprain of your calcaneofibular ligament which connects your fibula to your calcaneus which is her heel bone, you also may have a sprain of your Achilles tendon. It is very important that you perform RICE especially for the next 24-48 hours; sprains will heal much much better if few stay off of them especially in the beginning heave days shortly after they happen. Please use the crutches as much as possible when your moving around, you can also use the ankle boot all the time when your walking and it is important that you follow-up with an orthopedic physician especially given the fact that you have history of previous injury to this area. There is no evidence of fracture today on x-rays. You have worsening of your symptoms or anything else of concern to you please do not hesitate to seek medical care. You state that you are self-employed so I'm not going to supply you with a work note today however I do recommend that you minimize weight-bearing for the next few days at least and always make sure that your ankle supported when you are moving around and walking. You can use Tylenol as needed for pain. Prescriptions: No Action aspirin 81 mg Tablet,Delayed Release (Dr/Ec) 81 mg PO QPM Qty: 0 RF: 0 Co Q-10 1 cap PO QPM Qty: 0 RF: 0 irbesartan 150 mg tablet 75 mg PO QAM RF: 0 irbesartan 150 mg tablet 150 mg PO QPM RF: 0 hydrocodone-acetaminophen [[place]] 5-325 mg tablet 1 tab PO Q4-6H PRN (Reason: pain) Qty: 10 RF: 0 Brilinta 90 mg tablet RF: 0 Referrals: Rachelle Hansen MD [Physician] - Peyton Raymond MD [Primary Care Provider] - <Janice Sebastian DO - Last Filed: 11/26/19 08:14> Cosign ED Attending Fritz Attestation: I was immediately available in the department for consultation. Documentation has been reviewed. I agree with assessment and plan.
[2019-11-21 16:38] VITALS: PULSE 80
[2019-11-21 17:00] VITALS: PULSE 74; RESP 12; O2SAT 95
--- NOTE | 2019-11-21 17:17 | DI.RAD.S_ITS ---
PROCEDURE: XR ANKLE LT MIN 3V INDICATIONS: left lateral ankle pain/achilles pain/injury TECHNIQUE: 3 views of the ankle were acquired. COMPARISON: None. FINDINGS: Bones: No fractures or dislocations. Sub-5 mm corticated ossicles project adjacent to the medial malleolus are radiographically these appear chronic. Plantar and posterior calcaneal spurs. Ankle mortise is normally aligned. No suspicious bony lesions. Soft tissues: No tibiotalar joint effusion. Achilles tendon appears normal. IMPRESSION: No fracture. If the patient's symptoms do not improve recommend followup radiographs in 10 days to assess for healing sclerosis/occult injury. Dictated by: Mitul Kraus M.D. on 11/21/2019 at 17:39 Approved by: Mitul Kraus M.D. on 11/21/2019 at 17:41
[2019-11-21] MEDS: OXYCODONE/ACETAMINOPHEN 5/325 TABLET 1 TAB PO (18:32)
[2019-11-21 18:34] VITALS: BP 161/95; PULSE 88; RESP 19; O2SAT 98
== END 2019-11-21 19:02 | disposition home or self-care (01) ==
PROVIDERS: Emergency Provider Student in an Organized Health Care Education/Training Program; PCP Student in an Organized Health Care Education/Training Program
DX: S93.412A Sprain of calcaneofibular ligament of left ankle, initial encounter (principal); S86.012A Strain of left Achilles tendon, initial encounter; I25.10 Atherosclerotic heart disease of native coronary artery without angina pectoris
CPT/HCPCS: 73610; 99283

== ENCOUNTER → 2020-04-07 06:21 | Outpatient (CLI) | payer OTHER, SELFPAY ==
--- NOTE | 2020-04-07 | DI.RAD.S_ITS ---
PROCEDURE: XR SHOULDER RT MIN 2V INDICATIONS: RIGHT SHOULDER PAIN TECHNIQUE: 3 views of the shoulder were acquired. COMPARISON: [facility], CR, XR SHOULDER LT MIN 2V, 06/05/2019, 19:19. FINDINGS: Bones: No fractures or dislocations. No suspicious bony lesions. Visualized ribs appear intact. Soft tissues: No suspicious soft tissue calcifications. IMPRESSION: No trauma. Mild to moderate AC joint osteoarthritis. Dictated by: Jose Fuentes M.D. on 04/07/2020 at 7:48 Approved by: Jose Fuentes M.D. on 04/07/2020 at 7:49
== END ==
PROVIDERS: PCP Student in an Organized Health Care Education/Training Program; Referring Provider Student in an Organized Health Care Education/Training Program; Visit Provider Student in an Organized Health Care Education/Training Program
DX: M19.011 Primary osteoarthritis, right shoulder (principal)
CPT/HCPCS: 73030

== ENCOUNTER 2020-08-19 18:02 | Observation (INO) | payer OTHER, SELFPAY ==
[2020-08-19] VITALS (21 sets, daily range): BP systolic 140–175; BP diastolic 70–96; PULSE 62–76; RESP 16–23; TEMP 36.6–36.7; O2SAT 92–99; BMI 31.1
--- NOTE | 2020-08-19 | DI.ECHO.S_ITS ---
[facility] +---------+ : : [address] : [place] : : : : [id number] : : : : Phone: [phone] Echocardiogram Report + + :Name: KAROLINA REYNAGA Study Date: 08/20/2020 Height: 72 in : :[facility] ReadingLocation: Weight: 229 lb : : Gender: Male BSA: 2.3 m2 : :: 1960 Age: 60 yrs BP: 151/96 mmHg: :Reason For Study: R/O MO : :Ordering Physician: KRISTA, : :ANTONIO Performed By: Naomi Layton : :Referring: ANTONIO VELASCO : + + Interpretation Summary The left ventricle is normal in size. The ejection fraction is estimated to be 60-65%. The right ventricle is mildly dilated. The right ventricular systolic function is normal. No significant valvular pathology seen. The IVC is of normal diameter and collapses greater than 50% with a sniff. This suggests a low right atrial pressure of 3 mm Hg. Procedure: A two-dimensional transthoracic echocardiogram with color flow and Doppler was performed. The study quality was technically adequate. There is no prior echocardiogram noted for this patient. The patient was in sinus bradycardia with heart rates between 59-67 bpm during the exam. Left Ventricle: The left ventricle is normal in size. Proximal septal thickening is noted. There is no echo evidence for significant left ventricular outflow tract obstruction. There is no thrombus. The ejection fraction is estimated to be 60-65%. There are no focal wall motion abnormalities. Diastolic parameters suggest a relaxation abnormality of the left ventricle, consistent with probable normal filling pressures. Right Ventricle: The right ventricle is mildly dilated. The right ventricular systolic function is normal. Atria: The left atrium grossly appears normal in size. Right atrial size is normal. There is no Doppler evidence for an interatrial shunt. Mitral Valve: The mitral valve leaflets appear mildly thickened, but open well. There is mild mitral annular calcification. There is mild mitral regurgitation. Aortic Valve: The aortic valve is mildly calcified. There is discrete nodular thickening of the right coronary cusp. There is no aortic valve stenosis. There is trace aortic regurgitation. Tricuspid Valve: The tricuspid valve is normal. There is mild tricuspid regurgitation. The right ventricular systolic pressure is estimated to be at least 27 mmHg based on an estimated right atrial pressure of 3 mm Hg. Pulmonic Valve: The pulmonic valve leaflets are thin and pliable; valve motion is normal. There is mild pulmonic regurgitation. Great Vessels: The aortic root is normal size. The ascending aorta is at the upper limits of normal in size. The aortic arch is at the upper limits of normal in size. The IVC is of normal diameter and collapses greater than 50% with a sniff. This suggests a low right atrial pressure of 3 mm Hg. Pericardium/ Pleura There is no pericardial effusion. There is no pleural effusion. MMode/2D Measurements & Calculations LVIDd: 5.5 cm LVOT diam: 2.2 cm LVIDs: 3.5 cm Ao root diam: 4.1 cm FS: 35.3 % asc Aorta Diam: 3.7 cm EPSS: 0.76 cm Ao Arch Diam (Prox Trans): 3.7 cm IVSd: 0.84 cm LVPWd: 0.84 cm LV gallagher. diameter/BSA (cm/m^2): 2.4 LV sys. diameter/BSA (cm/m^2): 1.6 LA A2 area: 23.0 cm2 RA long axis: 5.5 cm LA A4 area: 19.4 cm2 RA area: 21.0 cm2 LA length (vol): 5.2 cm RA vol: 68.4 ml LA vol: 72.2 ml RA : 30.3 ml/m2 LA vol index: 32.0 ml/m2 IVC diam: 1.9 cm RVD1 (basal): 4.4 cm TAPSE: 2.5 cm Doppler Measurements & Calculations Ao V2 max: 152.2 cm/sec LVOT Max Nelson: 111.7 cm/sec Ao V2 mean: 103.2 cm/sec LV V1 max P.0 mmHg Ao max P.3 mmHg LV V1 VTI: 26.7 cm Ao mean P.8 mmHg FABIOLA(I,D): 2.6 cm2 Ao V2 VTI: 38.1 cm FABIOLA(V,D): 2.7 cm2 sev ratio: 0.70 FABIOLA indexed to BSA (cm^2/m^2): 1.1 MV E max nelson: 96.6 cm/sec TR max nelson: 242.5 cm/sec MV A max nelson: 101.3 cm/sec TR max P.5 mmHg MV E/A: 0.95 PA V2 max: 74.1 cm/sec Med Peak E' Nelson: 6.1 cm/sec PA V2 mean: 49.7 cm/sec E/E' med: 15.7 PA mean P.1 mmHg Lat Peak E' Nelson: 9.5 cm/sec PA pr(Accel): 41.3 mmHg E/E' lat: 10.2 E/e' average: 13.0 MV dec time: 0.21 sec SV(LVOT): 97.9 ml Reading Physician:11:19 AM
--- NOTE | 2020-08-19 18:12 | DI.RAD.S_ITS ---
PROCEDURE: XR CHEST 1V INDICATIONS: chest pain TECHNIQUE: One view of the chest was acquired. COMPARISON: [facility], CR, XR CHEST 1V, 05/03/2019, 10:19. FINDINGS: Surgical changes and devices: None. Lungs and pleura: Lungs are clear. No pleural effusions or pneumothorax. Mediastinum: Mediastinal contours appear normal. Heart size is normal. Bones and chest wall: No suspicious bony lesions. Overlying soft tissues appear unremarkable. IMPRESSION: No evidence acute pulmonary process. Dictated by: Roosevelt Borrego M.D. on 08/19/2020 at 19:23 Approved by: Roosevelt Borrego M.D. on 08/19/2020 at 19:24
[2020-08-19 18:26] LABS: Add Manual Diff / Slide Review NO; Basophils Absolute Auto 100 /uL (0-100); Basophils Percent Auto 0.7 % (0-2); Eosinophils Absolute Auto 200 /uL (0-450); Eosinophils Percent Auto 2.7 % (2-4); Hematocrit 42.7 % (41-53); Hemoglobin 14.6 g/dL (13.5-17.5); Lymphocytes Absolute Auto 2000 /uL (1100-4500); Lymphocytes Percent Auto 23.7 % (25-40); Mean Corpuscular HGB Conc 34.2 % (30-36); Mean Corpuscular Hemoglobin 30.4 PG (26-34); Mean Corpuscular Volume 88.8 fL (80-100); Monocytes Absolute Auto 800 /uL (0-900); Monocytes Percent Auto 9.1 % (3-14); Neutrophils Absolute Auto 5400 /uL (1500-7000); Neutrophils Percent Auto 63.8 % (50-75); Platelet Count 292 X10^3/uL (150-400); Red Blood Cell Count 4.81 X10^6/uL (4.5-5.9); Red Cell Distribution Width 13.3 % (11.6-14.8); White Blood Cell Count 8.4 X10^3/uL (4.5-11.0)
[2020-08-19 18:37] LABS: Prothrombin Time 10.9 SECONDS (10.1-12.7)
[2020-08-19 18:39] LABS: PTT Partial Thromboplastin Tim 31 SECONDS (26.4-36.2)
[2020-08-19 18:41] LABS: Alanine Aminotransferase 58 IU/L (<50); Albumin 4.6 g/dL (3.5-5.0); Albumin Globulin Ratio 1.5 (1.0-2.8); Alkaline Phosphatase 64 U/L (38-126); Aspartate Aminotransferase 36 IU/L (17-59); BUN Creatinine Ratio 20.4 (6-22); Bilirubin Total 0.4 mg/dL (0.2-1.3); Blood Urea Nitrogen 21 mg/dL (9-20); Calcium 9.7 mg/dL (8.4-10.2); Carbon Dioxide 27 mmol/L (22-32); Chloride 101 mmol/L (98-107); Creatine Kinase 59 U/L (55-170); Estimated Glomerular Filt Rate > 60.0 mL/min (>60); Globulin 3.1 g/dL (1.7-4.1); Glucose 101 mg/dL (80-110); HEMOLYSIS 15 (0-50); Lipase 158 U/L (23-300); Potassium 4.4 mmol/L (3.4-5.1); Sodium 137 mmol/L (137-145); Total Protein 7.7 g/dL (6.3-8.2)
--- NOTE | 2020-08-19 18:41 | ED_ITS ---
HPI - Chest Pain General Chief Complaint: Chest Pain Stated Complaint: CHEST PAIN Time Seen by Provider: 08/19/20 18:20 Source: patient Mode of arrival: Ambulatory Limitations: no limitations History of Present Illness HPI narrative: 60-year-old male with cardiac history including prior MN and stent presents with a chief complaint of chest pain for the past several days. He states it radiates to his arms and back, he stays at its most intense is 5/10. He denies any obvious provocation or palliation but does state that it seems to radiate to his back and right shoulder. He denies that his back or shoulder pain gets worse with motion or use. He denies associated symptoms such as dizziness, weakness or lightheadedness. He denies unexplained nausea, vomiting or diaphoresis. He denies recent travel, history of blood clot. He struggles describing the nature of his pain or characteristic but states it re minds him of prior MIs. His initial heart catheterization was about 10years ago when he was stented and with the cardiology group in [place] Related Data Home Medications Medication Instructions Recorded Confirmed aspirin 81 mg PO QPM #0 04/17/10 08/19/20 irbesartan 75 mg PO QAM 04/29/19 08/19/20 irbesartan 150 mg PO QPM 04/29/19 08/19/20 ticagrelor [Brilinta] 90 mg PO DAILY MDD 90 10/31/19 08/19/20 Allergies Allergy/AdvReac Type Severity Reaction Status Date / Time latex [LATEX] Allergy Severe SWELLING, Verified 08/19/20 18:32 RASH, ITCHING venom-honey bee Allergy Intermediate SWELLING Verified 08/19/20 18:32 [BEE VENOM (HONEY BEE)] penicillin V [PENICILLIN V] Allergy Unknown Unknown - Verified 08/19/20 18:32 happened when he was a child topical antiseptic used Allergy Severe Rash Uncoded 04/29/19 19:40 before cath Review of Systems Constitutional Constitutional: Denies chills, Denies fatigue, Denies fever(s), Denies frequent falls, Denies lethargy and Denies weakness Eyes Eyes: Denies change in vision, Denies eye discharge, Denies irritation and Denies loss of vision ENT Ears, Nose, Mouth, and Throat: Denies change in voice, Denies dizziness, Denies neck pain, Denies sore throat and Denies throat swelling Cardiovascular Cardiovascular: Reports chest pain, Denies irregular heart rhythm, Denies lightheadedness, Denies palpitations, Denies dyspnea, Denies dyspnea on exertion and Denies orthopnea Respiratory Respiratory: Denies cough, Denies dyspnea, Denies dyspnea on exertion and Denies wheezing Gastrointestinal Gastrointestinal: Denies abdominal pain, Denies change in bowel habits, Denies d iarrhea, Denies nausea and Denies vomiting Musculoskeletal Musculoskeletal: Reports back pain, Denies neck pain and Denies numbness Integumentary/Breasts Skin/Breast: Denies pruritus, Denies erythema, Denies rash and Denies wounds Neurologic Neurologic: Denies behavioral changes, Denies confusion, Denies dizziness, Denies frequent falls, Denies loss of vision, Denies numbness and Denies weakness Psychiatric Psychiatric: Denies anxiety, Denies behavioral changes, Denies confusion, Denies depression, Denies homicidal ideation and Denies suicidal ideation Endocrine Endocrine: Denies fatigue, Denies flushing and Denies palpitations Hematologic/Lymphatic Hematologic/Lymphatic: Denies easy bruising Allergic/Immunologic Allergic/Immunologic: Denies urticaria, Denies throat swelling and Denies wheezing Patient History Medical History (Updated 08/20/20 @ 03:40 by Pako Walden DO) Coronary artery disease Hyperlipidemia Hypertension Ulcerative colitis Surgical History History of colon resection Social History household members: spouse Smoking Status: Never smoker alcohol intake: current Smoking Status: Never smoker alcohol intake frequency: 0-2 drinks per day Substance Use Type: does not use Exam Narrative Exam Narrative: GENERAL: [60] year old patient appears stated age. Well- nourished, well-developed patient, in mild distress. Anxious HEAD: Atraumatic. Normocephalic. EYES: Pupils equal round and reactive. Extraocular motions intact. No scleral icterus. No injection or drainage. ENT: Nose without bleeding, purulent drainage. Throat without erythema, tonsillar hypertrophy or exudate. Airway patent. NECK: Trachea midline. Non tender CARDIOVASCULAR: Regular rate and rhythm without murmurs, gallops, or rubs. RESPIRATORY: Clear to auscultation. Breath sounds equal bilaterally. No wheezes, rales, or rhonchi. GASTROINTESTINAL: Abdomen soft, non-tender, nondistended. EXTREMITIES: No edema or joint tenderness. BACK: Nontender without deformity or crepitance. No flank tenderness. NEURO: AOx3. SKIN: No rash or erythema of visible areas Initial Vital Signs Initial Vital Signs: Vital Signs Temperature 98.1 F 08/19/20 18:10 Pulse Rate 75 08/19/20 18:10 Respiratory Rate 16 08/19/20 18:10 Blood Pressure 174/90 H 08/19/20 18:10 Pulse Oximetry 99 08/19/20 18:10 Course Course Course Narrative: patient becomes pain free after nitro. Multiple EKGs non- ischemic Orders Ordered: ED Orders 08/19/20 19:59 COVID19 - ADMIT (MANAGEMENT COORDINATOR swab/PCR) Stat 08/19/20 20:06 Troponin I Stat Acetaminophen (Acetaminophen 325 Mg Tablet) 650 mg PO Q6HR PRN PRN Reason: Fever/Mild Pain (1-3) Al Hydrox/Mg Hydrox/Simethicone (Mag Hydrox/Alum/Simeth 30 Ml Udc) 30 ml PO Q6HR PRN PRN Reason: Dyspepsia Aspirin (Aspirin Ec 325 Mg Tablet) 325 mg PO DAILY [facility] Calcium Carbonate (Calcium Carbonate 500 Mg Tab) 1,000 mg PO Q4HR PRN PRN Reason: Dyspepsia Enoxaparin Sodium (Enoxaparin 40 Mg/0.4 Ml Syringe) 40 mg SUBCUT DAILY [facility] Ibuprofen (Ibuprofen 600 Mg Tablet) 600 mg PO Q6HR PRN PRN Reason: Fever/Mild Pain (1-3) Irbesartan (Irbesartan 150 Mg Tablet) 75 mg PO DAILY [facility] Irbesartan (Irbesartan 150 Mg Tablet) 150 mg PO QPM [facility] Metoprolol Succinate (Metoprolol Er 50 Mg Tablet) 50 mg PO DAILY [facility] Morphine Sulfate (Morphine 2 Mg/Ml Inj) 2 mg IV Q4HR PRN PRN Reason: Pain, Moderate (4-6) Morphine Sulfate (Morphine 2 Mg/Ml Inj) 2 mg IV Q5MIN PRN PRN Reason: Chest Pain Naloxone HCl (Naloxone 0.4 Mg/Ml Vial) 0.2 mg IV Q2MIN PRN PRN Reason: Opiate Reversal Nitroglycerin (Nitroglycerin 0.4 Mg Sl Tab) 0.4 mg SL [id number] PRN PRN Reason: Chest Pain Ondansetron HCl (Ondansetron 4 Mg/2 Ml Inj) 4 mg IV Q8HR PRN PRN Reason: Nausea And Vomiting Sodium Chloride (Sodium Chloride 0.9% Flush) 10 ml IV PRN PRN PRN Reason: Flush Sodium Chloride (Sodium Chloride 0.9% Flush) 10 ml IV BID PRASHANT Discontinued Medications Aspirin (Aspirin 81 Mg Chew Tab) 324 mg PO NOW ONE Stop: 08/19/20 18:54 Last Admin: 08/19/20 19:00 Dose: 324 mg Documented by: EUGENIO Sodium Chloride (Normal Saline 0.9%) 1,000 mls @ 1,000 mls/hr IV BOLUS ONE Stop: 08/19/20 21:07 Last Infusion: 08/19/20 21:08 Dose: 0 mls/hr Documented by: Admin: 08/19/20 20:17 Dose: 1,000 mls/hr Documented by: EUGENIO Nitroglycerin (Nitroglycerin 0.4 Mg Sl Tab) 0.4 mg SL [id number] PRN PRN Reason: Chest Pain Last Admin: 08/19/20 19:49 Dose: 0.4 mg Documented by: Admin: 08/19/20 19:27 Dose: 0.4 mg Documented by: Admin: 08/19/20 19:02 Dose: 0.4 mg Documented by: EUGENIO Non-Formulary Medication (Praluent) 75 mg SUBCUT NOW ONE Stop: 08/19/20 22:22 Last Admin: 08/19/20 22:52 Dose: Not Given Documented by: JEAN MARIE Merida Consultation #1: call to clerk [employer] cardio at [place], recommends admission here with typical cardiac workup. No need for transfer Consultation #2: Dr. Raymond happy to accept Vital Signs Vital signs: Vital Signs - 8 hr 08/19/20 19:45 08/19/20 19:49 08/19/20 20:00 Pulse Rate 70 68 74 Respiratory Rate 23 19 20 Blood Pressure 145/89 H 154/85 H Pulse Oximetry 93 95 08/19/20 20:15 08/19/20 20:30 08/19/20 20:45 Pulse Rate 65 62 62 Respiratory Rate 23 19 16 Blood Pressure 140/85 Pulse Oximetry 99 08/19/20 21:08 08/19/20 21:15 08/19/20 21:30 Pulse Rate 64 65 64 Respiratory Rate 21 19 19 Blood Pressure 144/84 H 148/77 H Pulse Oximetry 08/19/20 21:45 Pulse Rate 66 Respiratory Rate 18 Blood Pressure Pulse Oximetry MDM - Chest Pain Lab Data Result diagrams: 08/19/20 18:10 08/19/20 18:10 Labs: Lab Results 08/19/20 08/19/20 08/19/20 Range/Units 18:10 18:10 18:10 WBC 8.4 (4.5-11.0) X10^3/uL RBC 4.81 (4.5-5.9) X10^6/uL Hgb 14.6 (13.5-17.5) g/dL Hct 42.7 (41-53) % MCV 88.8 (80-100) fL MCH 30.4 (26-34) PG MCHC 34.2 (30-36) % RDW 13.3 (11.6-14.8) % Plt Count 292 (150-400) X10^3/uL Neut % (Auto) 63.8 (50-75) % Lymph % (Auto) 23.7 L (25-40) % Craven % (Auto) 9.1 (3-14) % Eos % (Auto) 2.7 (2-4) % Baso % (Auto) 0.7 (0-2) % Neut # (Auto) 5400 (9600-6625) /uL Lymph # (Auto) 2000 (9495-1311) /uL Craven # (Auto) 800 (0-900) /uL Eos # (Auto) 200 (0-450) /uL Baso # (Auto) 100 (0-100) /uL PT 10.9 (10.1-12.7) SECONDS INR 1.0 (0.9-1.3) APTT 31 (26.4-36.2) SECONDS Sodium 137 (137-145) mmol/L Potassium 4.4 (3.4-5.1) mmol/L Chloride 101 (98-107) mmol/L Carbon Dioxide 27 (22-32) mmol/L BUN 21 H (9-20) mg/dL Creatinine 1.03 (0.66-1.25) mg/dL Estimated GFR > 60.0 (>60) mL/min BUN/Creatinine Ratio 20.4 (6-22) Glucose 101 (80-110) mg/dL Calcium 9.7 (8.4-10.2) mg/dL Total Bilirubin 0.4 (0.2-1.3) mg/dL AST 36 (17-59) IU/L ALT 58 H (<50) IU/L Alkaline Phosphatase 64 (38-126) U/L Total Creatine Kinase 59 (55-170) U/L CK-MB (CK-2) TNP CK-MB (CK-2) Rel Index TNP Troponin I < 0.012 (0.01-0.034) ng/mL Total Protein 7.7 (6.3-8.2) g/dL Albumin 4.6 (3.5-5.0) g/dL Globulin 3.1 (1.7-4.1) g/dL Albumin/Globulin Ratio 1.5 (1.0-2.8) Lipase 158 (23-300) U/L SARS-CoV-2 (PCR) (Negative) 08/19/20 08/19/20 Range/Units 19:59 20:06 WBC (4.5-11.0) X10^3/uL RBC (4.5-5.9) X10^6/uL Hgb (13.5-17.5) g/dL Hct (41-53) % MCV (80-100) fL MCH (26-34) PG MCHC (30-36) % RDW (11.6-14.8) % Plt Count (150-400) X10^3/uL Neut % (Auto) (50-75) % Lymph % (Auto) (25-40) % Craven % (Auto) (3-14) % Eos % (Auto) (2-4) % Baso % (Auto) (0-2) % Neut # (Auto) (1114-3145) /uL Lymph # (Auto) (8225-1029) /uL Craven # (Auto) (0-900) /uL Eos # (Auto) (0-450) /uL Baso # (Auto) (0-100) /uL PT (10.1-12.7) SECONDS INR (0.9-1.3) APTT (26.4-36.2) SECONDS Sodium (137-145) mmol/L Potassium (3.4-5.1) mmol/L Chloride (98-107) mmol/L Carbon Dioxide (22-32) mmol/L BUN (9-20) mg/dL Creatinine (0.66-1.25) mg/dL Estimated GFR (>60) mL/min BUN/Creatinine Ratio (6-22) Glucose (80-110) mg/dL Calcium (8.4-10.2) mg/dL Total Bilirubin (0.2-1.3) mg/dL AST (17-59) IU/L ALT (<50) IU/L Alkaline Phosphatase (38-126) U/L Total Creatine Kinase (55-170) U/L CK-MB (CK-2) CK-MB (CK-2) Rel Index Troponin I < 0.012 (0.01-0.034) ng/mL Total Protein (6.3-8.2) g/dL Albumin (3.5-5.0) g/dL Globulin (1.7-4.1) g/dL Albumin/Globulin Ratio (1.0-2.8) Lipase (23-300) U/L SARS-CoV-2 (PCR) Negative (Negative) ECG Data Attestation: I personally reviewed and interpreted this ECG as follows: Interpretation: EKG is normal sinus rhythm rate [79 ] and free of any signs of ischemia or ectopy. No ST segmental elevation or depression. No T wave inversions Discharge Plan Departure Patient Disposition: Admitted as Observation Clinical Impression: Chest pain Admit Date/Time: 08/19/20 21:55 Admit Provider: Peyton Raymond
[2020-08-19 18:53] LABS: Troponin I < 0.012 ng/mL (0.01-0.034)
[2020-08-19] MEDS: ASPIRIN 81 MG CHEW TAB 324 MG PO (19:00)
[2020-08-19] MEDS: NITROGLYCERIN 0.4 MG SL TAB SL ×3 (19:02→19:49)
[2020-08-19] MEDS: SODIUM CHLORIDE 0.9% 1,000 ML 1000 ML IV (20:17)
[2020-08-19 20:41] LABS: Troponin I < 0.012 ng/mL (0.01-0.034)
[2020-08-19 21:25] LABS: COVID19 - ADMIT (NP swab/PCR) Negative (Negative)
--- NOTE | 2020-08-19 23:10 | PC.NURSE ---
A&OX4. 95%RA. pt denies chest pain. tele monitor. oriented pt to room. call light in reach.
--- NOTE | 2020-08-19 23:48 | PC.NURSE ---
Addendum entered by Sushma Damon R.N. 08/20/20 01:15: Declines to continue to wear SCD's or to have continuous pulse ox on stating he is unable to sleep with them on; reminded to ankle wave when awake. Will spot check O2 sats but has been maintaining > 92%. Original Note: patient is alert and oriented. Breath sounds CTA with RA sat of 96%; is on continuous oximetry. HRR w/telemetry reading of SR. BP trending high and is currently 150/90. Denies chest pain or SOB. Denies nausea. BT present and is passing flatus. Denies dysuria, frequency or urgency with urination. Independent with mobility and denies weakness. Denies feeling dizzy or lightheaded. Denies any pain. Bilateral calf SCD's applied. Fall risk score is low.
[2020-08-20 04:09] LABS: Add Manual Diff / Slide Review NO; Basophils Absolute Auto 100 /uL (0-100); Basophils Percent Auto 0.7 % (0-2); Eosinophils Absolute Auto 300 /uL (0-450); Eosinophils Percent Auto 4.6 % (2-4); Hematocrit 42.5 % (41-53); Hemoglobin 14.4 g/dL (13.5-17.5); Lymphocytes Absolute Auto 2000 /uL (1100-4500); Lymphocytes Percent Auto 29.7 % (25-40); Mean Corpuscular HGB Conc 33.9 % (30-36); Mean Corpuscular Hemoglobin 30.2 PG (26-34); Mean Corpuscular Volume 89.2 fL (80-100); Monocytes Absolute Auto 700 /uL (0-900); Monocytes Percent Auto 9.9 % (3-14); Neutrophils Absolute Auto 3700 /uL (1500-7000); Neutrophils Percent Auto 55.1 % (50-75); Platelet Count 271 X10^3/uL (150-400); Red Blood Cell Count 4.76 X10^6/uL (4.5-5.9); Red Cell Distribution Width 13.1 % (11.6-14.8); White Blood Cell Count 6.8 X10^3/uL (4.5-11.0)
[2020-08-20 04:16] LABS: Alanine Aminotransferase 50 IU/L (<50); Albumin 3.9 g/dL (3.5-5.0); Albumin Globulin Ratio 1.5 (1.0-2.8); Alkaline Phosphatase 51 U/L (38-126); Aspartate Aminotransferase 29 IU/L (17-59); BUN Creatinine Ratio 21.3 (6-22); Bilirubin Total 0.7 mg/dL (0.2-1.3); Blood Urea Nitrogen 19 mg/dL (9-20); Calcium 9.5 mg/dL (8.4-10.2); Carbon Dioxide 27 mmol/L (22-32); Chloride 105 mmol/L (98-107); Estimated Glomerular Filt Rate > 60.0 mL/min (>60); Globulin 2.6 g/dL (1.7-4.1); Glucose 100 mg/dL (80-110); HEMOLYSIS < 15 (0-50); Magnesium 2.2 mg/dL (1.6-2.3); Phosphorous 4.8 mg/dL (2.3-3.7); Potassium 4.3 mmol/L (3.4-5.1); Sodium 137 mmol/L (137-145); Total Protein 6.5 g/dL (6.3-8.2)
[2020-08-20 04:25] LABS: NT-proBNP (BNP-Adult 18+) 142 pg/mL (<125)
[2020-08-20 04:28] LABS: Troponin I < 0.012 ng/mL (0.01-0.034)
[2020-08-20 05:05] VITALS: BP 132/84; PULSE 61; RESP 18; TEMP 36.8; O2SAT 98
--- NOTE | 2020-08-20 07:32 | P.HP_ITS ---
History of Present Illness History of Present Illness Date Patient Seen: 08/20/20 Time Patient Seen: 07:32 Chief complaint: CHEST PAIN Narrative: 60-year-old male with history of prior [place] and stent placement x2 presented to the ED last night with complaint of chest pain times several days. Pain radiated to his arms and back, 5/10. No inciting event. Pain did not get worse with motion or use. No dizziness, weakness, or lightheadedness. Denies nausea, vomiting or diaphoresis. No recent travel or medication changes. Reports the pain reminds him of his previous MIs. He did have a heart catheterization approximately 10 years ago that resulted in a stent. Vital signs upon admission to the ED included temperature of 98.1?, pulse 75, respirations 16, blood pressure 140/95, O2 saturation 99% on room air. Lab workup unremarkable except mild elevation in ALT, patient does have a drinking history. CXR negative. EKGs showed normal sinus rhythm with a ventricular rate of [address] changes or T-wave inversions. Troponin was notably negative. Chest pain completely resolved after nitro. Primary senior litigation paralegal was consulted by Dr. Walden and he recommended admission for observation [place] rule out with echo and stress test. Recommended transfer if concerning symptoms and long-term nitrate if not. Patient has had an uneventful night. Scheduled for echo and stress test this morning. Serial troponins now negative x 3. Denies chest pain. No shortness of breath. Patient History Medical History Coronary artery disease Hyperlipidemia Hypertension Ulcerative colitis Surgical History History of colon resection Family & Social History Social History: household members spouse Prior Living Arrangements House Safety & Behavioral: Feels Safe in Current No Environment Been Physically Hurt or No Threatened By a Person Suicidal Ideation Description None Suicide Plan Description No Plan Tobacco & Substance use: Smoking Status Never smoker alcohol intake current alcohol intake frequency 0-2 drinks per day Substance Use Type does not use Meds Home Medications and Allergies Home Medications Medication Instructions Recorded Confirmed Type aspirin 81 mg PO QPM #0 04/17/10 08/19/20 History irbesartan 75 mg PO QAM 04/29/19 08/19/20 History irbesartan 150 mg PO QPM 04/29/19 08/19/20 History Brilinta 90 mg PO DAILY MDD 90 10/31/19 08/19/20 History nitroglycerin 2.5 mg PO BID #60 cap 08/20/20 Rx Allergies Allergy/AdvReac Type Severity Reaction Status Date / Time latex [LATEX] Allergy Severe SWELLING, Verified 08/19/20 18:32 RASH, ITCHING venom-honey bee Allergy Intermediate SWELLING Verified 08/19/20 18:32 [BEE VENOM (HONEY BEE)] penicillin V [PENICILLIN V] Allergy Unknown Unknown - Verified 08/19/20 18:32 happened when he was a child topical antiseptic used Allergy Severe Rash Uncoded 04/29/19 19:40 before cath Review of Systems Review of Systems ROS: Yes All systems reviewed with the patient and are negative except as otherwise documented Exam Vital Signs (past 8 hours): - 08/19/20 23:45 08/20/20 05:05 Temperature 97.9 F 98.2 F Pulse Rate 74 61 Respiratory Rate 16 18 Blood Pressure 150/90 H 132/84 Pulse Oximetry 96 98 Oxygen Delivery Method Room Air Oxygen Flow Rate 0 Narrative Exam Narrative: GENERAL: Alert and oriented, appearing stated age and in no acute distress. HEENT: Head normocephalic/atraumatic. Pupils equal, round, and reactive to light and accomodation. Extraocular muscles intact. Tympanic membranes clear. Nasal mucosa moist, septum midline. Oral mucosa moist, no lesions. Neck soft and supple, no lymphadenopathy. LUNGS: Clear to ausculation bilaterally, no wheezes, rhonchi or rales. CV: Normal S1 and S2 with regular rate and rhythm, no audible murmurs, rubs or gallops. ABDOMEN: Soft, non-tender, non-distended, no organomegaly. Positive bowel so unds. EXTREMITIES: No clubbing, cyanosis, or edema. NEURO: Cranial nerves II through XII grossly intact, no focal deficits. PSYCH: Alert and oriented x 3. SKIN: No concerning lesions. Objective Labs Result Diagrams: 08/20/20 03:55 08/20/20 03:55 Labs: Laboratory Results - last 24 hr 08/19/20 08/19/20 08/19/20 18:10 18:10 18:10 WBC 8.4 RBC 4.81 Hgb 14.6 Hct 42.7 MCV 88.8 MCH 30.4 MCHC 34.2 RDW 13.3 Plt Count 292 Neut % (Auto) 63.8 Lymph % (Auto) 23.7 L [place] % (Auto) 9.1 Eos % (Auto) 2.7 Baso % (Auto) 0.7 Neut # (Auto) 5400 Lymph # (Auto) 2000 [place] # (Auto) 800 Eos # (Auto) 200 Baso # (Auto) 100 PT 10.9 INR 1.0 APTT 31 Sodium 137 Potassium 4.4 Chloride 101 Carbon Dioxide 27 BUN 21 H Creatinine 1.03 Estimated GFR > 60.0 BUN/Creatinine Ratio 20.4 Glucose 101 Calcium 9.7 Phosphorus Magnesium Total Bilirubin 0.4 AST 36 ALT 58 H Alkaline Phosphatase 64 Total Creatine Kinase 59 CK-MB (CK-2) TNP CK-MB (CK-2) Rel Index TNP Troponin I < 0.012 NT-Pro-B Natriuret Pep Total Protein 7.7 Albumin 4.6 Globulin 3.1 Albumin/Globulin Ratio 1.5 Lipase 158 SARS-CoV-2 (PCR) 08/19/20 08/19/20 08/20/20 19:59 20:06 03:55 WBC RBC Hgb Hct MCV MCH MCHC RDW Plt Count Neut % (Auto) Lymph % (Auto) [place] % (Auto) Eos % (Auto) Baso % (Auto) Neut # (Auto) Lymph # (Auto) [place] # (Auto) Eos # (Auto) Baso # (Auto) PT INR APTT Sodium Potassium Chloride Carbon Dioxide BUN Creatinine Estimated GFR BUN/Creatinine Ratio Glucose Calcium Phosphorus Magnesium Total Bilirubin AST ALT Alkaline Phosphatase Total Creatine Kinase CK-MB (CK-2) CK-MB (CK-2) Rel Index Troponin I < 0.012 < 0.012 NT-Pro-B Natriuret Pep Total Protein Albumin Globulin Albumin/Globulin Ratio Lipase SARS-CoV-2 (PCR) Negative 08/20/20 08/20/20 03:55 03:55 WBC 6.8 RBC 4.76 Hgb 14.4 Hct 42.5 MCV 89.2 MCH 30.2 MCHC 33.9 RDW 13.1 Plt Count 271 Neut % (Auto) 55.1 Lymph % (Auto) 29.7 [place] % (Auto) 9.9 Eos % (Auto) 4.6 H Baso % (Auto) 0.7 Neut # (Auto) 3700 Lymph # (Auto) 2000 [place] # (Auto) 700 Eos # (Auto) 300 Baso # (Auto) 100 PT INR APTT Sodium 137 Potassium 4.3 Chloride 105 Carbon Dioxide 27 BUN 19 Creatinine 0.89 Estimated GFR > 60.0 BUN/Creatinine Ratio 21.3 Glucose 100 Calcium 9.5 Phosphorus 4.8 H Magnesium 2.2 Total Bilirubin 0.7 AST 29 ALT 50 H Alkaline Phosphatase 51 Total Creatine Kinase CK-MB (CK-2) CK-MB (CK-2) Rel Index Troponin I NT-Pro-B Natriuret Pep 142 H Total Protein 6.5 Albumin 3.9 Globulin 2.6 Albumin/Globulin Ratio 1.5 Lipase SARS-CoV-2 (PCR) Assessment & Plan Assessment & Plan narrative: 1. Chest pain, rule out [place] Plan: Serial troponins negative x3. Awaiting echo and stress test this morning. If negative, anticipate discharge to home with long-term nitrate. 2. Hypertension, chronic, present on admission Plan: Continue home medications. 3. Hyperlipidemia, chronic, present on admission Plan: Has been intolerant to statins. Working on getting repatha approved through his insurance, will start as an outpatient. 4. Ulcerative colitis, chronic, present on admission -Status post colon resection Plan: Will watch closely. 5 Alcohol use, chronic, present on admission -History of heavy drinking, recent elevated GGT in outpatient setting, elevated ALT in ED. Plan: [facility] protocol. 6. Hyperphosphatemia, new -Possibly due to hemolyzed sample, new finding Plan: Repeat lab for trend. Code: Full DVT prophylaxis: Lovenox, SCDs COVID: Negative Disposition: Anticipate 1-2 days depending on echo and stress test results.
[2020-08-20 08:00] VITALS: BP 144/80; PULSE 61; RESP 19; TEMP 37.1; O2SAT 95
[2020-08-20] MEDS: SODIUM CHLORIDE 0.9% FLUSH 10 ML IV (08:53)
[2020-08-20] MEDS: ASPIRIN EC 325 MG TABLET PO (08:53)
[2020-08-20] MEDS: IRBESARTAN 150 MG TABLET 75 MG PO (10:15)
[2020-08-20] MEDS: METOPROLOL ER 50 MG TABLET PO (10:15)
--- NOTE | 2020-08-20 11:58 | PM.DS.1 ---
History of Present Illness History of Present Illness Date Patient Seen: 08/20/20 Time Patient Seen: 11:59 Chief complaint: CHEST PAIN Narrative: 60-year-old male with history of prior [place] and stent placement x2 presented to the ED last night with complaint of chest pain times several days. Pain radiated to his arms and back, 5/10. No inciting event. Pain did not get worse with motion or use. No dizziness, weakness, or lightheadedness. Denies nausea, vomiting or diaphoresis. No recent travel or medication changes. Reports the pain reminds him of his previous MIs. He did have a heart catheterization approximately 10 years ago that resulted in a stent. Vital signs upon admission to the ED included temperature of 98.1?, pulse 75, respirations 16, blood pressure 140/95, O2 saturation 99% on room air. Lab workup unremarkable except mild elevation in ALT, patient does have a drinking history. CXR negative. EKGs showed normal sinus rhythm with a ventricular rate of [address] changes or T-wave inversions. Troponin was notably negative. Chest pain completely resolved after nitro. Primary fire fighting equipment specialist was consulted by Dr. Walden and he recommended admission for observation PR rule out with echo and stress test. Recommended transfer if concerning symptoms and long-term nitrate if not. Patient has had an uneventful night. Scheduled for echo and stress test this morning. Serial troponins now negative x 3. Denies chest pain. No shortness of breath. Discharge Providers Provider Date of admission: 08/19/20 21:55 Discharge Date: 08/20/20 Primary care physician: Peyton Raymond MD Consults: 08/19/20 22:24 Consult to Discharge Planning Routine Comment: Discharge provider: Peyton Raymond MD Summary Hospital Course Discharge Diagnosis: 1. Chest pain, likely angina at rest 2. Hypertension, chronic, present on admission 3. Hyperlipidemia, chronic, present on admission 4. Ulcerative colitis, chronic, present on admission 5 Alcohol use, chronic, present on admission 6. Hyperphosphatemia, new Hospital Course: Unremarkable. Serial troponins negative x3. Echo showed ejection fraction of 60-65%. Stress test ordered, unable to be completed today in the hospital. Patient decided not to stay an extra day as he had uneventful night and his pain did not recur after nitroglycerin in the ED. Chest pain thought to be anginal in nature, will be discharged on nitroglycerin ER 2.5 mg p.o. b.i.d. per cardiology recommendation. Plan will be to follow-up in outpatient setting for a stress test and Cardiology visit. Patient does have intolerance to statins and is trying to get approval for repatha. He did have an elevated phosphorus this morning that is new, possibly due to hemolyzed sample. Will recheck at follow-up visit. Time spent on Discharge and Coordination of post-hospital care: 35 minutes Status at Discharge Cognitive/behavioral status at discharge: at baseline, oriented Overall status at discharge: patient is back to baseline Exam Vital Signs (past 8 hours): - 08/20/20 05:05 08/20/20 08:00 Temperature 98.2 F 98.8 F Pulse Rate 61 61 Respiratory Rate 18 19 Blood Pressure 132/84 144/80 H Pulse Oximetry 98 95 Oxygen Delivery Method Room Air Oxygen Flow Rate 0 Narrative Exam Narrative: GENERAL: Alert and oriented, appearing stated age and in no acute distress. HEENT: Head normocephalic/atraumatic. Pupils equal, round, and reactive to light and accomodation. Extraocular muscles intact. Tympanic membranes clear. Nasal mucosa moist, septum midline. Oral mucosa moist, no lesions. Neck soft and supple, no lymphadenopathy. LUNGS: Clear to ausculation bilaterally, no wheezes, rhonchi or rales. CV: Normal S1 and S2 with regular rate and rhythm, no audible murmurs, rubs or gallops. ABDOMEN: Soft, non-tender, non-distended, no organomegaly. Positive bowel sounds. EXTREMITIES: No clubbing, cyanosis, or edema. NEURO: Cranial nerves II through XII grossly intact, no focal deficits. PSYCH: Alert and oriented x 3. SKIN: No concerning lesions. Objective Labs Result Diagrams: 08/20/20 03:55 08/20/20 03:55 Labs: Laboratory Results - last 24 hr 08/19/20 08/19/20 08/19/20 18:10 18:10 18:10 WBC 8.4 RBC 4.81 Hgb 14.6 Hct 42.7 MCV 88.8 MCH 30.4 MCHC 34.2 RDW 13.3 Plt Count 292 Neut % (Auto) 63.8 Lymph % (Auto) 23.7 L [place] % (Auto) 9.1 Eos % (Auto) 2.7 Baso % (Auto) 0.7 Neut # (Auto) 5400 Lymph # (Auto) 2000 [place] # (Auto) 800 Eos # (Auto) 200 Baso # (Auto) 100 PT 10.9 INR 1.0 APTT 31 Sodium 137 Potassium 4.4 Chloride 101 Carbon Dioxide 27 BUN 21 H Creatinine 1.03 Estimated GFR > 60.0 BUN/Creatinine Ratio 20.4 Glucose 101 Calcium 9.7 Phosphorus Magnesium Total Bilirubin 0.4 AST 36 ALT 58 H Alkaline Phosphatase 64 Total Creatine Kinase 59 CK-MB (CK-2) TNP CK-MB (CK-2) Rel Index TNP Troponin I < 0.012 NT-Pro-B Natriuret Pep Total Protein 7.7 Albumin 4.6 Globulin 3.1 Albumin/Globulin Ratio 1.5 Lipase 158 SARS-CoV-2 (PCR) 08/19/20 08/19/20 08/20/20 19:59 20:06 03:55 WBC RBC Hgb Hct MCV MCH MCHC RDW Plt Count Neut % (Auto) Lymph % (Auto) [place] % (Auto) Eos % (Auto) Baso % (Auto) Neut # (Auto) Lymph # (Auto) [place] # (Auto) Eos # (Auto) Baso # (Auto) PT INR APTT Sodium Potassium Chloride Carbon Dioxide BUN Creatinine Estimated GFR BUN/Creatinine Ratio Glucose Calcium Phosphorus Magnesium Total Bilirubin AST ALT Alkaline Phosphatase Total Creatine Kinase CK-MB (CK-2) CK-MB (CK-2) Rel Index Troponin I < 0.012 < 0.012 NT-Pro-B Natriuret Pep Total Protein Albumin Globulin Albumin/Globulin Ratio Lipase SARS-CoV-2 (PCR) Negative 08/20/20 08/20/20 03:55 03:55 WBC 6.8 RBC 4.76 Hgb 14.4 Hct 42.5 MCV 89.2 MCH 30.2 MCHC 33.9 RDW 13.1 Plt Count 271 Neut % (Auto) 55.1 Lymph % (Auto) 29.7 [place] % (Auto) 9.9 Eos % (Auto) 4.6 H Baso % (Auto) 0.7 Neut # (Auto) 3700 Lymph # (Auto) 2000 [place] # (Auto) 700 Eos # (Auto) 300 Baso # (Auto) 100 PT INR APTT Sodium 137 Potassium 4.3 Chloride 105 Carbon Dioxide 27 BUN 19 Creatinine 0.89 Estimated GFR > 60.0 BUN/Creatinine Ratio 21.3 Glucose 100 Calcium 9.5 Phosphorus 4.8 H Magnesium 2.2 Total Bilirubin 0.7 AST 29 ALT 50 H Alkaline Phosphatase 51 Total Creatine Kinase CK-MB (CK-2) CK-MB (CK-2) Rel Index Troponin I NT-Pro-B Natriuret Pep 142 H Total Protein 6.5 Albumin 3.9 Globulin 2.6 Albumin/Globulin Ratio 1.5 Lipase SARS-CoV-2 (PCR) [facility] Medical History Coronary artery disease Hyperlipidemia Hypertension Ulcerative colitis Surgical History History of colon resection Social History household members: spouse Smoking Status: Never smoker alcohol intake: current Discharge Plan Discharge Plan Patient Disposition: Home Discharge orders & Medications Prescriptions: New nitroglycerin 2.5 mg capsule, extended release 2.5 mg PO BID Qty: 60 RF: 3 Continued aspirin 81 mg Tablet,Delayed Release (Dr/Ec) 81 mg PO QPM Qty: 0 RF: 0 irbesartan 150 mg tablet 75 mg PO QAM RF: 0 irbesartan 150 mg tablet 150 mg PO QPM RF: 0 Brilinta 90 mg tablet 90 mg PO DAILY MDD 90 RF: 0 Follow up/Referrals: Peyton Raymond MD [Primary Care Provider] - Jole Andino MD [Non-Staff] - Diet/Activity/Treatments Diet: Low-sodium and Low-cholesterol Skin/Wound/Dressing Care Report to your healthcare provider any signs of infection, such as:: chills, fever and increased pain Visit Report/Discharge Packet Instructions: DI for Chest Pain, Nitroglycerin Sublingual Discharge Data Primary Care Provider: Peyton Raymond Attending Provider: Peyton Raymond
[2020-08-20 12:00] VITALS: BP 149/75; PULSE 74; RESP 19; TEMP 37; O2SAT 95
--- NOTE | 2020-08-20 13:08 | CM.DANOTE ---
DCP: Case received. Was not able to meet with patient for he already discharged from hospital. Was able to complete assessment based on information available in his medical record. DCP assessment completed with information currently available. Patient is a 60 year old male who admitted yesterday evening to the care of the hospitalist team. PCP: Dr. Raymond. Payer: confirmed: [employer]. Patient came to the hospital via private vehicle secondary to having chest pain. Patient has history of prior [place], and had stent placement approximately 10 years ago at [facility] in [place]. He is here for cardiac work up, including echo and stress test. Patient resides in [place] with Dr. Raymond as his primary physician. He is independent, according to notes, and is employed at [employer], which is based on [place]. P: Patient was just discharged from the hospital after cardiac tests were completed with no needs. Sri Lewis RN/Station Captain
--- NOTE | 2020-08-20 13:56 | PC.NURSE ---
Discharge order received and patient is eager to discharge to home. Patient ate lunch and tolerated well. Denies complaints. IV removed. Patient states he will call to schedule a follow up right away with his supervisor nuclear medicine. Discharge instructions and home care handouts reviewed with patient, he states understanding and has no further questions or concerns at this time. Escorted out via wheelchair by BOBY to home with his .
== END 2020-08-20 12:45 | disposition home or self-care (01) ==
LOC: ED 20:06 → AC 21:55
PROVIDERS: Admitting Provider Student in an Organized Health Care Education/Training Program; Emergency Provider Emergency Medicine; PCP Student in an Organized Health Care Education/Training Program; Referring Provider Emergency Medicine; Visit Provider Student in an Organized Health Care Education/Training Program
DX: R07.9 Chest pain, unspecified (principal); I25.2 Old myocardial infarction; I25.10 Atherosclerotic heart disease of native coronary artery without angina pectoris; E78.5 Hyperlipidemia, unspecified; I10 Essential (primary) hypertension; K51.90 Ulcerative colitis, unspecified, without complications; Z90.49 Acquired absence of other specified parts of digestive tract; E83.39 Other disorders of phosphorus metabolism; Z20.822 Contact with and (suspected) exposure to COVID-19
CPT/HCPCS: 36415; 71045; 80053; 82550; 83690; 83735; 83880; 84100; 84484; 85025; 85610; 85730; 87635; 93005; 93306; 96360; 99284; 99285; G0378

== ENCOUNTER 2020-12-11 18:10 | Emergency (ER) | payer OTHER, SELFPAY ==
[2020-08-19 22:24] VITALS: BMI 31.1
[2020-12-11 18:39] VITALS: BP 146/83; PULSE 75; RESP 18; TEMP 36.6; O2SAT 97; BMI 30.5
--- NOTE | 2020-12-11 20:11 | DI.RAD.S_ITS ---
PROCEDURE: XR FINGER LT MIN 2V INDICATIONS: laceration TECHNIQUE: AP hand, 2 views of the 1st finger(s) acquired. COMPARISON: None. FINDINGS: Bones: No fractures or dislocations. No suspicious bony lesions. Soft tissues: No suspicious soft tissue calcifications. IMPRESSION: No fracture or foreign body seen. Dictated by: Jose Fuentes M.D. on 12/11/2020 at 20:38 Approved by: Jose Fuentes M.D. on 12/11/2020 at 20:38
--- NOTE | 2020-12-11 20:34 | ED.WOUNDLAC ---
HPI - Wound/Laceration General Chief Complaint: Wound/Laceration Stated Complaint: Cut Left Thumb Pretty Darn Good Time Seen by Provider: 12/11/20 19:57 Source: patient Mode of arrival: Ambulatory Limitations: no limitations History of Present Illness HPI narrative: Male with a cut to the dorsum of his left thumb. He was opening a package earlier today and cut it with a knife that he was using. He covered with a bandage given to the emergency department for further evaluation. Related Data Home Medications Medication Instructions Recorded Confirmed aspirin 81 mg tablet,delayed 81 mg PO QPM #0 04/17/10 08/19/20 release irbesartan 150 mg tablet 75 mg PO QAM 04/29/19 08/19/20 irbesartan 150 mg tablet 150 mg PO QPM 04/29/19 08/19/20 ticagrelor 90 mg tablet (Brilinta) 90 mg PO DAILY MDD 90 10/31/19 08/19/20 Previous Rx's Medication Instructions Recorded nitroglycerin 2.5 mg 2.5 mg PO BID #60 cap 08/20/20 capsule,extended release Allergies Allergy/AdvReac Type Severity Reaction Status Date / Time latex [LATEX] Allergy Severe SWELLING, Verified 08/19/20 18:32 RASH, ITCHING venom-honey bee Allergy Intermediate SWELLING Verified 08/19/20 18:32 [BEE VENOM (HONEY BEE)] penicillin V [PENICILLIN V] Allergy Unknown Unknown - Verified 08/19/20 18:32 happened when he was a child topical antiseptic used Allergy Severe Rash Uncoded 04/29/19 19:40 before cath Review of Systems Musculoskeletal Comments: Pain over the cut to the back of his left thumb Integumentary/Breasts Comments: Cut to the back of his left thumb Hematologic/Lymphatic On Anticoagulants: No Patient History Medical History Coronary artery disease Hyperlipidemia Hypertension Ulcerative colitis Surgical History History of colon resection Social History household members: spouse Smoking Status: Never smoker alcohol intake: current Smoking Status: Never smoker alcohol intake frequency: 0-2 drinks per day Substance Use Type: does not use Exam Initial Vital Signs Initial Vital Signs: Vital Signs Temperature 97.9 F 12/11/20 18:39 Pulse Rate 75 12/11/20 18:39 Respiratory Rate 18 12/11/20 18:39 Blood Pressure 146/83 H 12/11/20 18:39 Pulse Oximetry 97 12/11/20 18:39 Const General: cooperative and comfortable HENMT Head: normal to inspection and normocephalic Cardio Pulses: radial pulses present on the left Skin Other: Patient with a 3 cm cut to the back of the left thumb the EKOS diagonally from the nail bed to his IP joint. Neuro Sensory Exam: no sensory deficits noted Extrem Other: Patient can flex and extend at the IP joint of the left thumb Procedures Laceration Repair Laceration 1: Site: other (Left thumb) Side (If applicable): left Size (cm): 3 Description: linear Depth: simple, single layer Local Anesthetic: lidocaine 1% and with bicarb Amount of anesthesia used (mL): 4 Pre-repair: wound explored and deep structures intact Skin layer closed with: nylon Size (cm): 4-0 Number of sutures: 6 Technique: simple, interrupted Course Orders Ordered: ED Orders 12/11/20 20:11 XR finger LT min 2V Stat Discontinued Medications Bacitracin (Bacitracin Oint 0.9 Gm Pckt) 1 applic TOP NOW ONE Stop: 12/11/20 20:35 Last Admin: 12/11/20 21:15 Dose: 1 applic Documented by: MELBA Lidocaine/Sodium Bicarbonate (Lido 1%/Sod Bicarb 8.4% (10ml) 10 Ml Syringe) 10 ml INJ NOW ONE Stop: 12/11/20 20:35 Last Admin: 12/11/20 21:15 Dose: 10 ml Documented by: MELBA Vital Signs Vital signs: Vital Signs - 8 hr 12/11/20 21:37 Pulse Rate 64 Respiratory Rate 16 Pulse Oximetry 98 MDM - Wound/Laceration Imaging Data Extremity x-ray #1: Radiologist's Impression: [address] [id number] ReportSigned Patient: Hamzah Villareal JMR#: [id number]: [id number]:[id number]/Sex: 60 / MDate of Service: 12/11/20Loc: EDAccession Number: [id number] Procedure: XR finger LT min 2V Ordering Provider: Jarred Tapia D.O. PROCEDURE: XR FINGER LT MIN 2V INDICATIONS: laceration TECHNIQUE: AP hand, 2 views of the 1st finger(s) acquired. COMPARISON: None. FINDINGS: Bones: No fractures or dislocations. No suspicious bony lesions. Soft tissues: No suspicious soft tissue calcifications. IMPRESSION: No fracture or foreign body seen. Dictated by: Jose Fuentes M.D. on 12/11/2020 at 20:38 Approved by: Jose Fuentes M.D. on 12/11/2020 at 20:38 [facility] Narrative Medical decision making narrative: Bleeding was controlled with pressure. X-ray is unremarkable. The laceration was closed as described above. Deep structures are intact. Patient was given care instructions and return precautions. He expressed understanding and agreement. Discharge Plan Departure Patient Disposition: Home Clinical Impression: Laceration Instructions: DI for Laceration Repair Activity Restrictions/Additional Instructions: The stitches do need removed in 7-10 days. Until then leave the bandage that was placed here in the emergency department on for the next 24 hours. After that you can take it off and wash your hands like normal. Do not soak her hands and anything until the stitches are removed. You can take Tylenol/ibuprofen for any discomfort. You can use topical antibiotic ointment. Return to the emergency department for any new or worsening symptoms Prescriptions: No Action aspirin 81 mg Tablet,Delayed Release (Dr/Ec) 81 mg PO QPM Qty: 0 RF: 0 irbesartan 150 mg tablet 75 mg PO QAM RF: 0 irbesartan 150 mg tablet 150 mg PO QPM RF: 0 Brilinta 90 mg tablet 90 mg PO DAILY MDD 90 RF: 0 nitroglycerin 2.5 mg capsule, extended release 2.5 mg PO BID Qty: 60 RF: 3 Referrals: Peyton Raymond MD [Primary Care Provider] -
[2020-12-11] MEDS: BACITRACIN OINT 0.9 GM PCKT 1 APPLIC TOP (21:15)
[2020-12-11] MEDS: LIDO 1%/SOD BICARB 8.4% (10ML) 10 ML SYRINGE INJ (21:15)
[2020-12-11 21:37] VITALS: PULSE 64; RESP 16; O2SAT 98
== END 2020-12-11 21:38 | disposition home or self-care (01) ==
PROVIDERS: Emergency Provider Emergency Medicine; PCP Student in an Organized Health Care Education/Training Program
DX: S61.012A Laceration without foreign body of left thumb without damage to nail, initial encounter (principal); W26.0XXA Contact with knife, initial encounter
CPT/HCPCS: 12002; 73140; 99283; 99284

== ENCOUNTER → 2021-04-26 10:42 | Outpatient (CLI) | payer OTHER, SELFPAY ==
[2020-08-19 22:24] VITALS: BMI 31.1
--- NOTE | 2021-04-26 | DI.RAD.S_ITS ---
PROCEDURE: XR KNEE RT 3V INDICATIONS: RIGHT KNEE PAIN TECHNIQUE: 3 views of the knee were acquired. COMPARISON: None. FINDINGS: Bones: No fractures or dislocations. No suspicious bony lesions. Superior patellar enthesophyte. Tricompartment osteophytosis. Mild narrowing of the medial compartment. Soft tissues: No joint effusion. No suspicious soft tissue calcifications. IMPRESSION: No acute osseous abnormality. Dictated by: Nathaniel Clay M.D. on 04/26/2021 at 11:29 Approved by: Nathaniel Clay M.D. on 04/26/2021 at 11:31
== END ==
PROVIDERS: PCP Student in an Organized Health Care Education/Training Program; Referring Provider Student in an Organized Health Care Education/Training Program; Visit Provider Student in an Organized Health Care Education/Training Program
DX: M25.561 Pain in right knee (principal)
CPT/HCPCS: 73562

== ENCOUNTER → 2021-05-19 08:22 | Outpatient (CLI) | payer OTHER, SELFPAY ==
[2020-08-19 22:24] VITALS: BMI 31.1
--- NOTE | 2021-05-19 08:26 | DI.MRI.S_ITS ---
PROCEDURE: MR KNEE RT WO CON INDICATIONS: Unilateral primary osteoarthritis, right knee TECHNIQUE: Noncontrast sagittal PD fast spin echo and T2 fast spin echo with fat saturation, sagittal 3-D FLASH with fat saturation; coronal T1 spin echo and PD fast spin echo with fat saturation, and axial PD fast spin echo with fat saturation through the knee. COMPARISON: [facility], CR, XR KNEE RT 3V, 04/26/2021, 10:37. FINDINGS: Image quality: Excellent. Menisci: There is complex tear involving the body and posterior horn of the medial meniscus. There is intrasubstance degeneration in the anterior horn of the medial meniscus. The lateral meniscus demonstrates normal morphology and internal signal. The meniscal root ligaments appear intact. Cruciate ligaments: The anterior and posterior cruciate ligaments appear intact. Medial structures: The medial collateral ligament appears intact. The semimembranosus tendon insertions and meniscocapsular junction appear intact. Visualized portions of the pes anserinus tendons appear normal. No abnormal bursal fluid. Lateral structures: The lateral collateral ligament, long and short heads of the biceps femoris tendon appear intact. The popliteus tendon appears normal. Iliotibial band appears normal. Anterior structures: The quadriceps and patellar tendons appear intact. Quadriceps tendon is mildly thickened with linear hyperintense signal, compatible with mild quadriceps tendinitis. There is mild lateral subluxation of patella. No femoral trochlear dysplasia or ventral trochlear prominence. No edema in the infrapatellar fat pad. Bones and cartilage: No bone marrow contusions or fractures. Tricompartmental chondral malacia. There is a 3 mm full-thickness cartilage defect in the medial femoral condyle (series 11, image 20) with associated subchondral edema. There is also full-thickness or near full-thickness cartilage thinning in the inferior aspect of the patella with associated subchondral edema. Joint space: There is small knee joint effusion. Trace Beck's cyst. Normal appearing synovial plicae are incidentally noted. IMPRESSION: 1. Complex tear of the posterior horn body of the medial meniscus. 2. Mild quadriceps tendinitis. 3. Tricompartmental chondral malacia, most pronounced in the medial femorotibial compartment and patellofemoral compartment. 4. Mild lateral subluxation of patella. 5. Small knee joint effusion. Dictated by: Noemi Sahni M.D. on 05/19/2021 at 9:30 Approved by: Noemi Sahni M.D. on 05/19/2021 at 9:44
[2021-05-19 10:44] LABS: Vitamin D 25 Hydroxy (D3) 34.9 ng/mL (30.0-100.0)
== END ==
PROVIDERS: PCP Student in an Organized Health Care Education/Training Program; Referring Provider Internal Medicine Cardiovascular Disease; Visit Provider Internal Medicine Cardiovascular Disease
DX: S83.231A Complex tear of medial meniscus, current injury, right knee, initial encounter (principal); M17.11 Unilateral primary osteoarthritis, right knee; M22.41 Chondromalacia patellae, right knee; M76.51 Patellar tendinitis, right knee; M25.461 Effusion, right knee; I25.110 Atherosclerotic heart disease of native coronary artery with unstable angina pectoris
CPT/HCPCS: 36415; 73721; 82306

== ENCOUNTER → 2021-09-23 13:12 | Outpatient (ROUT) | payer OTHER, SELFPAY ==
[2020-08-19 22:24] VITALS: BMI 31.1
[2021-09-23 13:55] LABS: Influenza A - CEPHEID Flu A NEGATIVE (NEGATIVE); Influenza B - CEPHEID Flu B NEGATIVE (NEGATIVE)
[2021-09-23 14:14] LABS: COVID-19 CEPHEID PCR (VTM/NP) POSITIVE (Negative)
== END ==
PROVIDERS: PCP Student in an Organized Health Care Education/Training Program; Visit Provider Family Medicine
DX: U07.1 COVID-19 (principal); R05.1 Acute cough; R50.9 Fever, unspecified
CPT/HCPCS: 0240U

== ENCOUNTER → 2021-11-24 08:44 | Outpatient (CLI) | payer OTHER, SELFPAY ==
[2020-08-19 22:24] VITALS: BMI 31.1
[2021-11-24 10:36] LABS: Cholesterol 242 mg/dL (140-199); HDL Cholesterol 47 mg/dL (40-60); LDL Cholesterol Calculated 179 mg/dL (<100); Triglycerides 80 mg/dL (35-150)
== END ==
PROVIDERS: PCP Student in an Organized Health Care Education/Training Program; Referring Provider Internal Medicine Cardiovascular Disease; Visit Provider Internal Medicine Cardiovascular Disease
DX: I25.110 Atherosclerotic heart disease of native coronary artery with unstable angina pectoris (principal)
CPT/HCPCS: 36415; 80061

== ENCOUNTER → 2022-02-18 10:15 | Outpatient (CLI) | payer OTHER, SELFPAY ==
[2020-08-19 22:24] VITALS: BMI 31.1
--- NOTE | 2022-02-18 | DI.RAD.S_ITS ---
PROCEDURE: XR LUMBAR SPINE 2-3V INDICATIONS: LOW BACK PAIN TECHNIQUE: 3 views of the lumbar spine were acquired. COMPARISON: None. FINDINGS: Bones: 5 [id number] vertebrae are present. There is minimal retrolisthesis of L2 on L3. Moderate multilevel lumbar spondylosis with disc space loss, degenerative endplate changes, and prominent endplate osteophytes. There is also moderate mid and lower lumbar facet arthropathy. Age-indeterminate, but likely chronic minimal anterior compression deformities of the thoracolumbar junction. No acute vertebral body compression fractures. No suspicious bony lesions. Soft tissues: Overlying bowel gas pattern is normal. No suspicious soft tissue calcifications. IMPRESSION: Lumbar spine without acute osseous abnormalities. Moderate multilevel lumbar spondylosis with age-indeterminate but likely chronic anterior compression deformities of the thoracolumbar junction. Dictated by: Guille Kothari M.D. on 02/18/2022 at 12:16 Approved by: Guille Kothari M.D. on 02/18/2022 at 12:18
== END ==
PROVIDERS: PCP Family Medicine; Referring Provider Family Medicine; Visit Provider Family Medicine
DX: M47.816 Spondylosis without myelopathy or radiculopathy, lumbar region (principal); M54.50 Low back pain, unspecified
CPT/HCPCS: 72100

== ENCOUNTER → 2022-09-02 08:03 | Outpatient (CLI) | payer OTHER, SELFPAY ==
[2020-08-19 22:24] VITALS: BMI 31.1
[2022-09-02 09:28] LABS: Add Manual Diff / Slide Review NO; Basophils Absolute Auto 0 /uL (0-100); Basophils Percent Auto 0.7 % (0-2); Eosinophils Absolute Auto 300 /uL (0-450); Eosinophils Percent Auto 4.8 % (2-4); Hematocrit 41.9 % (41-53); Hemoglobin 14.5 g/dL (13.5-17.5); Lymphocytes Absolute Auto 1500 /uL (1100-4500); Lymphocytes Percent Auto 27.4 % (25-40); Mean Corpuscular HGB Conc 34.7 % (30-36); Mean Corpuscular Hemoglobin 30.7 PG (26-34); Mean Corpuscular Volume 88.5 fL (80-100); Monocytes Absolute Auto 500 /uL (0-900); Monocytes Percent Auto 9.6 % (3-14); Neutrophils Absolute Auto 3200 /uL (1500-7000); Neutrophils Percent Auto 57.5 % (50-75); Platelet Count 273 X10^3/uL (150-400); Red Blood Cell Count 4.73 X10^6/uL (4.5-5.9); Red Cell Distribution Width 13.8 % (11.6-14.8); White Blood Cell Count 5.6 X10^3/uL (4.5-11.0)
[2022-09-02 09:48] LABS: Alanine Aminotransferase 33 IU/L (<50); Albumin Globulin Ratio 1.4 (1.0-2.8); Alkaline Phosphatase 53 U/L (38-126); Aspartate Aminotransferase 24 IU/L (17-59); BUN Creatinine Ratio 17.6 (6-22); Bilirubin Total 0.9 mg/dL (0.2-1.3); Bilirubin Unconjugated 0.6 mg/dL (0.0-1.1); Blood Urea Nitrogen 15 mg/dL (9-20); Calcium 9.3 mg/dL (8.4-10.2); Carbon Dioxide 28 mmol/L (22-32); Chloride 102 mmol/L (98-107); Cholesterol 153 mg/dL (140-199); Estimated Glomerular Filt Rate > 60 mL/min (>60); Globulin 2.8 g/dL (1.7-4.1); Glucose 93 mg/dL (80-110); HDL Cholesterol 56 mg/dL (40-60); HEMOLYSIS < 15 (0-50); LDL Cholesterol Calculated 83 mg/dL (<100); Potassium 4.8 mmol/L (3.4-5.1); Sodium 138 mmol/L (137-145); Total Protein 6.8 g/dL (6.3-8.2); Triglycerides 71 mg/dL (35-150)
[2022-09-02 10:03] LABS: Vitamin D 25 Hydroxy (D3) 40.2 ng/mL (30.0-100.0)
[2022-09-02 10:34] LABS: Vitamin B12 522 pg/mL (239-931)
[2022-09-03 06:08] LABS: Labcorp Hemoglobin (Hb) A1c 5.4 % (4.8-5.6)
== END ==
PROVIDERS: PCP Family Medicine; Referring Provider Internal Medicine Cardiovascular Disease; Visit Provider Internal Medicine Cardiovascular Disease
DX: I25.10 Atherosclerotic heart disease of native coronary artery without angina pectoris (principal); I10 Essential (primary) hypertension; I25.110 Atherosclerotic heart disease of native coronary artery with unstable angina pectoris
CPT/HCPCS: 36415; 80048; 80061; 80076; 82306; 82607; 83036; 85025

== ENCOUNTER → 2023-02-24 08:14 | Outpatient (CLI) | payer OTHER, SELFPAY ==
[2020-08-19 22:24] VITALS: BMI 31.1
[2023-02-24 08:57] LABS: Add Manual Diff / Slide Review NO; Basophils Absolute Auto 0 /uL (0-100); Basophils Percent Auto 0.7 % (0-2); Eosinophils Absolute Auto 300 /uL (0-450); Eosinophils Percent Auto 5.3 % (2-4); Hematocrit 44.1 % (41-53); Hemoglobin 15.2 g/dL (13.5-17.5); Lymphocytes Absolute Auto 1600 /uL (1100-4500); Lymphocytes Percent Auto 26.1 % (25-40); Mean Corpuscular HGB Conc 34.5 % (30-36); Mean Corpuscular Hemoglobin 31.1 PG (26-34); Mean Corpuscular Volume 90.1 fL (80-100); Monocytes Absolute Auto 500 /uL (0-900); Monocytes Percent Auto 8.4 % (3-14); Neutrophils Absolute Auto 3600 /uL (1500-7000); Neutrophils Percent Auto 59.5 % (50-75); Platelet Count 333 X10^3/uL (150-400); Red Cell Distribution Width 13.3 % (11.6-14.8); White Blood Cell Count 6.1 X10^3/uL (4.5-11.0)
[2023-02-24 09:07] LABS: Prothrombin Time 11.1 SECONDS (10.1-12.7)
[2023-02-24 09:14] LABS: Alanine Aminotransferase 37 IU/L (<50); Albumin 4.4 g/dL (3.5-5.0); Albumin Globulin Ratio 1.6 (1.0-2.8); Alkaline Phosphatase 58 U/L (38-126); Aspartate Aminotransferase 29 IU/L (17-59); BUN Creatinine Ratio 12.6 (6-22); Bilirubin Total 0.9 mg/dL (0.2-1.3); Blood Urea Nitrogen 12 mg/dL (9-20); Calcium 9.9 mg/dL (8.4-10.2); Carbon Dioxide 26 mmol/L (22-32); Chloride 103 mmol/L (98-107); Cholesterol 197 mg/dL (140-199); Estimated Glomerular Filt Rate > 60 mL/min (>60); Globulin 2.7 g/dL (1.7-4.1); Glucose 106 mg/dL (80-110); HDL Cholesterol 41 mg/dL (40-60); HEMOLYSIS < 15 (0-50); LDL Cholesterol Calculated 128 mg/dL (<100); Potassium 4.7 mmol/L (3.4-5.1); Sodium 137 mmol/L (137-145); Total Protein 7.1 g/dL (6.3-8.2); Triglycerides 139 mg/dL (35-150)
[2023-02-24 09:37] LABS: Vitamin D 25 Hydroxy (D3) 42.5 ng/mL (30.0-100.0)
[2023-02-24 09:46] LABS: Ferritin 109 ng/mL (18-464)
[2023-02-24 09:49] LABS: TSH w/ Reflex to FT4 1.01 uIU/mL (0.47-4.68)
[2023-02-24 10:00] LABS: Vitamin B12 663 pg/mL (239-931)
== END ==
PROVIDERS: PCP Family Medicine; Referring Provider Family Medicine; Visit Provider Family Medicine
DX: R53.83 Other fatigue (principal); Z79.899 Other long term (current) drug therapy; E78.5 Hyperlipidemia, unspecified
CPT/HCPCS: 36415; 80053; 80061; 82306; 82607; 82728; 84443; 85025; 85610

== ENCOUNTER → 2023-07-18 07:47 | Outpatient (CLI) | payer OTHER, SELFPAY ==
[2020-08-19 22:24] VITALS: BMI 31.1
[2023-07-18 08:43] LABS: Cholesterol 183 mg/dL (140-199); HDL Cholesterol 42 mg/dL (40-60); LDL Cholesterol Calculated 120 mg/dL (<100); Triglycerides 104 mg/dL (35-150)
== END ==
PROVIDERS: PCP Family Medicine; Referring Provider Internal Medicine Cardiovascular Disease; Visit Provider Internal Medicine Cardiovascular Disease
DX: I25.110 Atherosclerotic heart disease of native coronary artery with unstable angina pectoris (principal); I25.10 Atherosclerotic heart disease of native coronary artery without angina pectoris
CPT/HCPCS: 36415; 80061

== ENCOUNTER → 2024-03-11 08:07 | Outpatient (CLI) | payer OTHER, SELFPAY ==
[2020-08-19 22:24] VITALS: BMI 31.1
[2024-03-11 09:12] LABS: Alanine Aminotransferase 36 IU/L (<50); Albumin 4.4 g/dL (3.5-5.0); Albumin Globulin Ratio 1.8 (1.0-2.8); Alkaline Phosphatase 62 U/L (38-126); Aspartate Aminotransferase 25 IU/L (17-59); BUN Creatinine Ratio 15.2 (6-22); Bilirubin Total 0.8 mg/dL (0.2-1.3); Blood Urea Nitrogen 15 mg/dL (9-20); Calcium 10.2 mg/dL (8.4-10.2); Carbon Dioxide 26 mmol/L (22-32); Chloride 105 mmol/L (98-107); Cholesterol 176 mg/dL (140-199); Estimated Glomerular Filt Rate > 60 mL/min (>60); Globulin 2.5 g/dL (1.7-4.1); Glucose 104 mg/dL (80-110); HDL Cholesterol 43 mg/dL (40-60); HEMOLYSIS < 15 (0-50); LDL Cholesterol Calculated 112 mg/dL (<100); Potassium 4.5 mmol/L (3.4-5.1); Sodium 138 mmol/L (137-145); Total Protein 6.9 g/dL (6.3-8.2); Triglycerides 105 mg/dL (35-150)
== END ==
PROVIDERS: PCP Family Medicine; Referring Provider Nurse Practitioner; Visit Provider Nurse Practitioner
DX: I25.110 Atherosclerotic heart disease of native coronary artery with unstable angina pectoris (principal); E78.5 Hyperlipidemia, unspecified
CPT/HCPCS: 36415; 80053; 80061

== ENCOUNTER → 2024-03-14 10:55 | Outpatient (ROUT) | payer OTHER, SELFPAY ==
[2020-08-19 22:24] VITALS: BMI 31.1
[2024-03-14 11:27] LABS: Troponin I < 0.012 ng/mL (0.01-0.034)
== END ==
PROVIDERS: PCP Family Medicine; Visit Provider Family Medicine
DX: R07.89 Other chest pain (principal)
CPT/HCPCS: 84484

== ENCOUNTER → 2024-03-20 08:26 | Outpatient (CLI) | payer OTHER, SELFPAY ==
[2020-08-19 22:24] VITALS: BMI 31.1
--- NOTE | 2024-03-20 | DI.US.S_ITS ---
PROCEDURE: US SOFT TISSUE HEAD AND NECK INDICATIONS: Generalized enlarged lymph nodes TECHNIQUE: Real-time scanning was performed of the neck region of interest, with image documentation. Color Doppler was also utilized. COMPARISON: [facility], CT, CT CERVICAL SPINE WO CON, 06/05/2019, 19:09. FINDINGS: Borderline apparent prominent lymph nodes can be seen adjacent to the left submandibular gland, measuring 16 x 7 x 17 mm and 16 x 10 x 18 mm. There is an expected amount of vascularity seen along the vascular rick of these lymph nodes. IMPRESSION: Borderline enlarged apparent lymph nodes within the left submandibular region. Please consider a follow-up soft tissue protocol neck CT with IV contrast for further evaluation. Dictated by: Gordon Reyes M.D. on 03/20/2024 at 11:42 Approved by: Gordon Reyes M.D. on 03/20/2024 at 11:45
== END ==
PROVIDERS: PCP Family Medicine; Referring Provider Family Medicine; Visit Provider Family Medicine
DX: R59.1 Generalized enlarged lymph nodes (principal)
CPT/HCPCS: 76536

== ENCOUNTER → 2024-03-25 07:31 | Outpatient (CLI) | payer OTHER, SELFPAY ==
[2020-08-19 22:24] VITALS: BMI 31.1
--- NOTE | 2024-03-25 08:09 | DI.CT.S_ITS ---
PROCEDURE: CT HEAD/BRAIN W CON INDICATIONS: CHRONIC FATIGUE,LYMPHADENOPATHY HEAD/NECK TECHNIQUE: 4.5 mm thick angled axial sections acquired from the foramen magnum to the vertex after the administration of intravenous contrast, with coronal and sagittal reformats. For radiation dose reduction, the following was used: automated exposure control, adjustment of mA and/or kV according to patient size. COMPARISON: None. FINDINGS: Image quality: Excellent. CSF Spaces: Basal cisterns are patent. No extra-axial fluid collections. Ventricles are normal in size and shape. Brain: No midline shift. No intracranial bleeds or masses. No abnormal intracranial enhancement. Truong-white interface appears normal. Skull and face: Calvarium and visualized facial bones appear intact, without suspicious lesions. Sinuses: Visualized sinuses and mastoids are clear. IMPRESSION: No acute intracranial abnormalities or abnormal intracranial enhancement. Dictated by: Ravi Fry M.D. on 03/25/2024 at 11:04 Approved by: Ravi Fry M.D. on 03/25/2024 at 11:06
--- NOTE | 2024-03-25 08:09 | DI.CT.S_ITS ---
PROCEDURE: CT SOFT TISSUE NECK W CON INDICATIONS: CHRONIC FATIGUE,LYMPHADENOPATHY HEAD/NECK TECHNIQUE: After the administration of intravenous contrast, 3.0 mm axial sections acquired from the sella to the aortic arch. Additional oblique axial 3.0 mm sections acquired through the pharynx. 3 mm thick coronal and sagittal reformats were generated. For radiation dose reduction, the following was used: automated exposure control. COMPARISON: [facility], CT, CT CERVICAL SPINE WO CON, 06/05/2019, 19:09. [facility], US, US SOFT TISSUE HEAD AND NECK, 03/20/2024, 8:40. FINDINGS: Image quality: Excellent. Lymph nodes: No enlarged lymph nodes seen throughout the neck. Lymph nodes measuring less than 1 cm short axis are noted, for example a 7 mm left 1 B lymph node (2/41) which likely corresponds to one of the lymph nodes seen by ultrasound. Vessels: Visualized vasculature appears patent. Atherosclerotic vascular calcifications Neck spaces: The oropharynx, nasopharynx, and pharynx demonstrate no mucosal lesions. The vocal cords, false vocal cords, pyriform sinuses, epiglottis, vallecula, and tongue base all appear normal. Extramucosal spaces appear unremarkable. Glands: The parotid and submandibular glands appear normal. Thyroid gland enlarged heterogeneous with nodules measuring less than 1.5 cm, consistent with multinodular goiter.. Miscellaneous: Visualized brain and orbits appear normal. Lung apices appear clear. Superficial soft tissues appear normal. Bones: No suspicious bony lesions. Visualized sinuses and mastoids appear unremarkable. IMPRESSION: Cervical lymph nodes appear within normal limits. No lymph nodes measuring greater than 1 cm in short axis. Thyroid gland appears mildly enlarged with several nodules measuring less than 1.5 cm. No sonographic follow-up based on consensus guidelines. Dictated by: Ravi Fry M.D. on 03/25/2024 at 10:57 Approved by: Ravi Fry M.D. on 03/25/2024 at 11:04
[2024-03-25 10:00] LABS: BUN Creatinine Ratio 16.3 (6-22); Blood Urea Nitrogen 13 mg/dL (9-20); Calcium 10.1 mg/dL (8.4-10.2); Carbon Dioxide 20 mmol/L (22-32); Chloride 104 mmol/L (98-107); Estimated Glomerular Filt Rate > 60 mL/min (>60); Glucose 167 mg/dL (80-110); HEMOLYSIS < 15 (0-50); Potassium 5.1 mmol/L (3.4-5.1); Sodium 137 mmol/L (137-145)
== END ==
PROVIDERS: PCP Family Medicine; Referring Provider Family Medicine; Visit Provider Family Medicine
DX: E04.2 Nontoxic multinodular goiter (principal); R59.1 Generalized enlarged lymph nodes; R53.82 Chronic fatigue, unspecified
CPT/HCPCS: 36415; 70460; 70491; 80048; Q9967

== ENCOUNTER → 2024-04-04 11:11 | Outpatient (ROUT) | payer OTHER, SELFPAY ==
[2020-08-19 22:24] VITALS: BMI 31.1
[2024-04-04 11:29] LABS: BUN Creatinine Ratio 15.9 (6-22); Blood Urea Nitrogen 14 mg/dL (9-20); Calcium 9.7 mg/dL (8.4-10.2); Carbon Dioxide 23 mmol/L (22-32); Chloride 103 mmol/L (98-107); Estimated Glomerular Filt Rate > 60 mL/min (>60); Glucose 115 mg/dL (80-110); HEMOLYSIS < 15 (0-50); Potassium 4.9 mmol/L (3.4-5.1); Sodium 135 mmol/L (137-145)
== END ==
PROVIDERS: PCP Family Medicine; Visit Provider Family Medicine
DX: R59.1 Generalized enlarged lymph nodes (principal); R53.82 Chronic fatigue, unspecified
CPT/HCPCS: 80048

== ENCOUNTER → 2024-09-03 08:28 | Outpatient (CLI) | payer OTHER, MEDICARE, SELFPAY ==
[2020-08-19 22:24] VITALS: BMI 31.1
[2024-09-03 10:07] LABS: Cholesterol 150 mg/dL (140-199); HDL Cholesterol 52 mg/dL (40-60); LDL Cholesterol Calculated 78 mg/dL (<100); Triglycerides 100 mg/dL (35-150)
== END ==
PROVIDERS: PCP Family Medicine; Referring Provider Internal Medicine Cardiovascular Disease; Visit Provider Internal Medicine Cardiovascular Disease
DX: I25.110 Atherosclerotic heart disease of native coronary artery with unstable angina pectoris (principal); E78.5 Hyperlipidemia, unspecified
CPT/HCPCS: 36415; 80061

== ENCOUNTER 2024-09-17 14:56 | Emergency (ER) | payer OTHER, MEDICARE, SELFPAY ==
[2020-08-19 22:24] VITALS: BMI 31.1
[2024-09-17 15:08] VITALS: BP 180/88; PULSE 66; RESP 16; TEMP 37; O2SAT 99; BMI 29.8
--- NOTE | 2024-09-17 15:31 | ED_ITS ---
<Statement entered by Chalo Call, DO - 09/17/24 18:44> Dr. Clal co Signs statement I was available for consultation during this patient's emergency department visit. This chart is signed by myself for administrative purposes only. I did not have direct contact with this patient during this visit. They were seen independently by the APC HPI - Headache General Chief Complaint: Headache Stated Complaint: dehydrated Time Seen by Provider: 09/17/24 15:29 Mode of arrival: Ambulatory History of Present Illness HPI Narrative: 64-year-old male with past medical history ulcerative colitis, status post a colectomy with J-pouch presents to the ED requesting IV hydration. Patient states that due to his colectomy, he frequently gets dehydrated and has been trying to obtain outpatient IV rehydration, but has not been able to do so yet. Meanwhile, patient states that despite his best efforts to drink water and electrolytes, he feels dehydrated recently. Patient complains of seeing his skin more wrinkled, has a headache and feels all-over myalgias. No fever, chills, chest pain, shortness of breath, cough, dysuria, lightheadedness, dizziness, syncope. Patient states he has left a message for his PCP Dr. Pelaez and hopes to hear from him tomorrow. Related Data Home Medications Medication Instructions Recorded Confirmed aspirin 81 mg tablet,delayed 81 mg PO QPM ##0 04/17/10 09/17/24 release irbesartan 150 mg tablet 75 mg PO QAM 04/29/19 09/17/24 irbesartan 150 mg tablet 150 mg PO QPM 04/29/19 09/17/24 evolocumab 140 mg/mL subcutaneous See Rx Instructions .Route .COMPLEX 09/17/24 09/17/24 pen injector (Crys Dougherty) nitroglycerin 0.4 mg sublingual 0.4 mg sublingual Q5MIN PRN Chest 09/17/24 09/17/24 tablet Pain Allergies Allergy/AdvReac Type Severity Reaction Status Date / Time iodine Allergy Severe Redness of Verified 09/17/24 15:05 Skin latex [LATEX] Allergy Severe SWELLING, Verified 08/19/20 18:32 RASH, ITCHING venom-honey bee Allergy Intermediate SWELLING Verified 08/19/20 18:32 [BEE VENOM (HONEY BEE)] penicillin V [PENICILLIN V] Allergy Unknown Unknown - Verified 08/19/20 18:32 happened when he was a child topical antiseptic used Allergy Severe Rash Uncoded 04/29/19 19:40 before cath Review of Systems Constitutional Constitutional: Reports body ache(s), Denies chills, Reports fatigue, Denies fever(s), Denies frequent falls, Reports headache(s), Denies lethargy and Denies weakness Eyes Eyes: Denies change in vision, Denies eye discharge, Denies irritation and Denies loss of vision ENT Ears, Nose, Mouth, and Throat: Denies change in voice, Denies dizziness, Reports headache(s), Denies neck pain, Denies sore throat and Denies throat swelling Cardiovascular Cardiovascular: Denies chest pain, Denies irregular heart rhythm, Denies lightheadedness, Denies palpitations, Denies dyspnea, Denies dyspnea on exertion and Denies orthopnea Respiratory Respiratory: Denies cough, Denies dyspnea, Denies dyspnea on exertion and Denies wheezing Gastrointestinal Gastrointestinal: Denies abdominal pain, Denies change in bowel habits, Denies diarrhea, Denies nausea and Denies vomiting Musculoskeletal Musculoskeletal: Denies neck pain and Denies numbness Integumentary/Breasts Skin/Breast: Denies pruritus, Denies erythema, Denies rash and Denies wounds Neurologic Neurologic: Denies behavioral changes, Denies confusion, Denies dizziness, Denies frequent falls, Reports headache(s), Denies loss of vision, Denies numbness and Denies weakness Psychiatric Psychiatric: Denies anxiety, Denies behavioral changes, Denies confusion, Denies depression, Denies homicidal ideation and Denies suicidal ideation Endocrine Endocrine: Reports fatigue, Denies flushing and Denies palpitations Hematologic/Lymphatic Hematologic/Lymphatic: Denies easy bruising Allergic/Immunologic Allergic/Immunologic: Denies urticaria, Denies throat swelling and Denies wheezing Patient History Medical History (Updated 09/17/24 @ 16:58 by Kevin Montano PA-C) Ulcerative colitis Hyperlipidemia Hypertension Coronary artery disease Surgical History History of colon resection Social History household members: spouse Smoking Status: Never smoker alcohol intake: current Smoking Status: Never smoker alcohol intake frequency: 0-2 drinks per day Exam Narrative Exam Narrative: Const General:?cooperative, healthy appearing and comfortable [facility] Head:?normal to inspection Ears:?hearing grossly normal bilaterally Nose:?external nose normal Face and sinus:?normal facial exam and sinuses nontender Mouth:?oral mucosae normal Throat:?posterior oropharynx normal Eyes General:?appearance normal, both eyes and all related structures Neck Neck:?normal visual inspection and no lymphadenopathy noted Resp Effort & Inspection:?normal respiratory effort Auscultation:?clear to auscultation bilaterally Cardio Rate:?regular rate Rhythm:?regular rhythm Neuro General:?patient alert, patient awake and patient oriented x3; PERRLA Initial Vital Signs Initial Vital Signs: Vital Signs Temperature 98.6 F 09/17/24 15:08 Pulse Rate 66 09/17/24 15:08 Respiratory Rate 16 09/17/24 15:08 Blood Pressure 180/88 H 09/17/24 15:08 Pulse Oximetry 99 09/17/24 15:08 Oxygen Delivery Method Room Air 09/17/24 15:08 Course Orders Ordered: ED Orders 09/17/24 15:20 CBC Auto Diff [Complete Blood Count AUTO DIFF] Stat CMP [Comprehensive Metabolic Panel] Stat PTT [PTT Partial Thromboplastin Jacobo] Stat 09/17/24 16:25 PT [Prothrombin Time INR] Stat Discontinued Medications Sodium Chloride (Normal Saline 0.9%) 1,000 mls @ 1,000 mls/hr IV BOLUS ONE Stop: 09/17/24 16:38 Last Infusion: 09/17/24 16:40 Dose: Infused Vital Signs Vital signs: Vital Signs - 8 hr 09/17/24 15:08 09/17/24 17:03 Temperature 98.6 F Pulse Rate 66 59 L Respiratory Rate 16 16 Blood Pressure 180/88 H 165/54 H Pulse Oximetry 99 98 Oxygen Delivery Method Room Air Room Air MDM - Headache Lab Data 09/17/24 15:20 09/17/24 15:20 Labs: Lab Results 09/17/24 09/17/24 Range/Units 15:20 15:21 WBC 8.0 (4.5-11.0) X10^3/uL RBC 5.13 (4.5-5.9) X10^6/uL Hgb 15.9 (13.5-17.5) g/dL Hct 45.8 (41-53) % MCV 89.2 (80-100) fL MCH 31.0 (26-34) PG MCHC 34.7 (30-36) % RDW 13.8 (11.6-14.8) % Plt Count 323 (150-400) X10^3/uL Neut % (Auto) 60.6 (50-75) % Lymph % (Auto) 27.5 (25-40) % Tal[place]ferro % (Auto) 7.4 (3-14) % Eos % (Auto) 3.8 (2-4) % Baso % (Auto) 0.7 (0-2) % Neut # (Auto) 4900 (9796-1116) /uL Lymph # (Auto) 2200 (6369-2555) /uL Tal[place]ferro # (Auto) 600 (0-900) /uL Eos # (Auto) 300 (0-450) /uL Baso # (Auto) 100 (0-100) /uL PT 11.0 (9.4-12.5) SECONDS INR 1.0 (0.9-1.3) APTT 35 (25.1-36.5) SECONDS Sodium 136 L (137-145) mmol/L Potassium 4.5 (3.4-5.1) mmol/L Chloride 103 (98-107) mmol/L Carbon Dioxide 22 (22-32) mmol/L BUN 15 (9-20) mg/dL Creatinine 0.90 (0.66-1.25) mg/dL Estimated GFR > 60 (>60) mL/min BUN/Creatinine Ratio 16.7 (6-22) Glucose 98 (70-99) mg/dL Calcium 9.7 (8.4-10.2) mg/dL Total Bilirubin 1.0 (0.2-1.3) mg/dL AST 35 (17-59) IU/L ALT 36 (<50) IU/L Alkaline Phosphatase 56 (38-126) U/L Total Protein 7.4 (6.3-8.2) g/dL Albumin 4.6 (3.5-5.0) g/dL Globulin 2.8 (1.7-4.1) g/dL Albumin/Globulin Ratio 1.6 (1.0-2.8) Urine Dip Bedside Urine Glucose Negative Bedside Urine Bilirubin - Negative Bedside Urine Ketone - Negative Urine Specific Bishop 1.015 Bedside Urine Occult Blood - Negative Bedside Urine pH 5.5 Bedside Urine Protein - Negative Bedside Urine Urobilinogen - Negative Bedside Urine Nitrite - Negative Bedside Urine Leukocytes - Negative Esterase MDM Narrative Medical decision making narrative: 64-year-old male with past medical history ulcerative colitis, status post a colectomy with J-pouch presents to the ED requesting IV hydration. Concern for dehydration versus electrolyte derangements versus UTI versus other. Will obtain labs, UA. Will give IV fluids. Patient declines medications for the headache. States it is a 4/10, which usually resolves with hydration. Will reassess. Labs within normal limits. UA negative. Patient endorses feeling better after IV fluids. Patient agrees to follow-up with PCP for outpatient IV rehydration. ED return precautions were discussed with patient. Patient verbalized understanding. Medical records reviewed: Yes Discharge Plan Departure Patient Disposition: Home Clinical Impression: Headache Qualifiers: Headache type: unspecified Headache chronicity pattern: unspecified pattern I ntractability: not intractable Qualified Code(s): R51.9 - Headache, unspecified Instructions: DI for Headache Activity Restrictions/Additional Instructions: You were evaluated in the ED today for a headache of dehydration. Your labs were normal with no electrolyte abnormalities or signs of dehydration. You were given IV hydration with good relief. Please follow-up with your PCP Dr. Pelaez to pursue outpatient IV rehydration. Return to the ED if you have worsening symptoms. Prescriptions: No Action aspirin 81 mg Tablet,Delayed Release (Dr/Ec) 81 mg PO QPM Qty: 0 nitroglycerin 0.4 mg tablet, sublingual 0.4 mg sublingual Q5MIN PRN (Reason: Chest Pain) Repatha SureClick 140 mg/mL pen injector See Rx Instructions .ROUTE .COMPLEX Patient Comments: [NO ORIGINAL SIG] Rx Instructions: 140 mg subcutaneously taken twice a month irbesartan 150 mg tablet 75 mg PO QAM irbesartan 150 mg tablet 150 mg PO QPM Referrals: Baldomero Pelaez MD [Primary Care Provider] - Stand Alone Forms: Patient Portal/API/Survey
[2024-09-17] MEDS: SODIUM CHLORIDE 0.9% 1,000 ML 1000 ML IV (16:00)
[2024-09-17 16:04] LABS: Add Manual Diff / Slide Review NO; Basophils Absolute Auto 100 /uL (0-100); Basophils Percent Auto 0.7 % (0-2); Eosinophils Absolute Auto 300 /uL (0-450); Eosinophils Percent Auto 3.8 % (2-4); Hematocrit 45.8 % (41-53); Hemoglobin 15.9 g/dL (13.5-17.5); Lymphocytes Absolute Auto 2200 /uL (1100-4500); Lymphocytes Percent Auto 27.5 % (25-40); Mean Corpuscular HGB Conc 34.7 % (30-36); Mean Corpuscular Volume 89.2 fL (80-100); Monocytes Absolute Auto 600 /uL (0-900); Monocytes Percent Auto 7.4 % (3-14); Neutrophils Absolute Auto 4900 /uL (1500-7000); Neutrophils Percent Auto 60.6 % (50-75); Platelet Count 323 X10^3/uL (150-400); Red Blood Cell Count 5.13 X10^6/uL (4.5-5.9); Red Cell Distribution Width 13.8 % (11.6-14.8)
[2024-09-17 16:11] LABS: Alanine Aminotransferase 36 IU/L (<50); Albumin 4.6 g/dL (3.5-5.0); Albumin Globulin Ratio 1.6 (1.0-2.8); Alkaline Phosphatase 56 U/L (38-126); Aspartate Aminotransferase 35 IU/L (17-59); BUN Creatinine Ratio 16.7 (6-22); Blood Urea Nitrogen 15 mg/dL (9-20); Calcium 9.7 mg/dL (8.4-10.2); Carbon Dioxide 22 mmol/L (22-32); Chloride 103 mmol/L (98-107); Estimated Glomerular Filt Rate > 60 mL/min (>60); Globulin 2.8 g/dL (1.7-4.1); Glucose 98 mg/dL (70-99); HEMOLYSIS 28 (0-50); Potassium 4.5 mmol/L (3.4-5.1); Sodium 136 mmol/L (137-145); Total Protein 7.4 g/dL (6.3-8.2)
[2024-09-17 16:26] LABS: PTT Partial Thromboplastin Tim 35 SECONDS (25.1-36.5)
[2024-09-17 17:03] VITALS: BP 165/54; PULSE 59; RESP 16; O2SAT 98
== END 2024-09-17 17:05 | disposition home or self-care (01) ==
PROVIDERS: Emergency Provider Student in an Organized Health Care Education/Training Program; PCP Family Medicine
DX: R51.9 Headache, unspecified (principal); Z93.4 Other artificial openings of gastrointestinal tract status; Z90.49 Acquired absence of other specified parts of digestive tract
CPT/HCPCS: 80053; 81003; 85025; 85610; 85730; 96360; 99283; 99284

== ENCOUNTER → 2024-09-19 06:48 | Outpatient (CLI) | payer MEDICARE, OTHER, SELFPAY ==
[2020-08-19 22:24] VITALS: BMI 31.1
--- NOTE | 2024-09-19 06:49 | DI.US.S_ITS ---
PROCEDURE: US SOFT TISSUE HEAD AND NECK INDICATIONS: Hypertrophy TECHNIQUE: Real-time scanning was performed of the neck region of interest, with image documentation. COMPARISON: [facility], US, US SOFT TISSUE HEAD AND NECK, 03/20/2024, 8:40. FINDINGS: Focused ultrasound examination of left submandibular gland shows ill-defined hypoechoic area in anterior portion of left submandibular gland with increased vascularity. 1 cm lymph node is seen medial to the left submandibular gland IMPRESSION: Ill-defined hypoechoic area involving anterior aspect of left submandibular gland with increased vascularity concerning for submandibular lesion of indeterminate nature. Adjacent mildly enlarged left submandibular lymph no as above. Dictated by: Shaq Lynn M.D. on 09/19/2024 at 13:02 Approved by: Shaq Lynn M.D. on 09/19/2024 at 13:04
== END ==
PROVIDERS: PCP Family Medicine; Referring Provider Otolaryngology; Visit Provider Otolaryngology
DX: K11.1 Hypertrophy of salivary gland (principal); R59.0 Localized enlarged lymph nodes
CPT/HCPCS: 76536

== ENCOUNTER → 2024-10-08 10:09 | Outpatient (CLI) | payer OTHER, MEDICARE, SELFPAY ==
[2020-08-19 22:24] VITALS: BMI 31.1
--- NOTE | 2024-10-08 10:13 | DI.RAD.S_ITS ---
PROCEDURE: XR HIP W PEL IF DONE RT 2V INDICATIONS: HIP PAIN TECHNIQUE: Two views of the right hip were acquired. COMPARISON: None. FINDINGS: Bones: There are no osseous abnormalities. SI and hip joints: Mild degeneration of both joints. Moderate L5-S1 degenerative disc and facet disease. Soft tissues: No soft tissue swelling, calcification or mass. IMPRESSION: Degeneration Dictated by: Chalo Hidalgo M.D. on 10/08/2024 at 13:25 Approved by: Chalo Hidalgo M.D. on 10/08/2024 at 13:26
== END ==
PROVIDERS: PCP Family Medicine; Referring Provider Family Medicine; Visit Provider Family Medicine
DX: M25.551 Pain in right hip (principal); M16.0 Bilateral primary osteoarthritis of hip
CPT/HCPCS: 73502

== ENCOUNTER 2024-10-31 16:15 | Outpatient (RCR) | payer MEDICARE, OTHER, SELFPAY ==
[2020-08-19 22:24] VITALS: BMI 31.1
--- NOTE | 2024-10-22 18:33 | PT.OIE ---
Current Diagnoses Pain in right hip (10/22/24) Past Medical History (Last Reviewed 09/17/24 @ 16:08 by Kevin Montano PA-C) Coronary artery disease Hyperlipidemia Hypertension Ulcerative colitis Past Surgical History (Last Reviewed 09/17/24 @ 16:08 by Kevin Montano PA-C) History of colon resection Visit Care Team Role Provider Type Baldomero Pelaez MD Attending Provider Physician Family Provider Primary Care Provider Referring Provider Specialty: [facility] Address: [facility] [place] [place], [place], [facility] Email: [email or web address] Physical Therapy Initial Evaluation PT-OP-A Visit Information Start: 10/22/24 16:21 Freq: Status: Active Protocol: Document 10/22/24 16:22 AIR TRAFFIC SYSTEMS TECHNICIAN (Rec: 10/22/24 18:32 AIR TRAFFIC SYSTEMS TECHNICIAN Laptop) Out-Patient Physical Therapy Visit Information Visit Information Visit Type Initial Evaluation Visit Start Time 16:22 Visit Stop Time 17:18 Visit Number 1 Number of MARINE GEOLOGIST Visits 0 Evaluation Information Evaluation Date 10/22/24 Precautions Precautions None PT-OP-B Current Condition Start: 10/22/24 16:21 Freq: Status: Active Protocol: Document 10/22/24 16:22 AIR TRAFFIC SYSTEMS TECHNICIAN (Rec: 10/22/24 18:32 AIR TRAFFIC SYSTEMS TECHNICIAN Laptop) Current Condition History of Current Condition Onset Date ~1.5 years Current Complaints R knee and groin pain History of Current Has pain in R medial knee, especially notices when Condition driving as pain goes straight from medial knee up to R groin. Pain ranges from 0-6/10 at rest. Pt is working with a quality review trainer about 2x/wk and feels pain is getting better. Sometimes has pain when walking the neighborhood with spouse and sometimes not. Prior Treatments and MRI R knee 2020 Complex tear of the posterior horn Tests body of the medial meniscus. X-Ray R hip 10/08/24 SI and hip joints: Mild degeneration of both joints. Moderate L5-S1 degenerative disc and facet disease. Treatment Goals Patient/Caregiver To see if there's anything to do to help the pain. Goals PT-OP-C Subjective Start: 10/22/24 16:21 Freq: Status: Active Protocol: Document 10/22/24 16:22 AIR TRAFFIC SYSTEMS TECHNICIAN (Rec: 10/22/24 18:32 AIR TRAFFIC SYSTEMS TECHNICIAN Laptop) Patient Questionnaires Lower Extremity Functional Scale LEFS Score 50/80 PT-OP-F Manual Assessment Start: 10/22/24 16:21 Freq: Status: Active Protocol: Document 10/22/24 16:22 AIR TRAFFIC SYSTEMS TECHNICIAN (Rec: 10/22/24 18:32 AIR TRAFFIC SYSTEMS TECHNICIAN Laptop) Manual Assessments Soft Tissue Assessment Soft Tissue Mobility TTP to R medial knee, just medial of patella Assessment Joint Mobility Assessment Joint Mobility Slight-moderately decreased medial glide of R patella Assessment PT-OP-G Mobility & Gait Start: 10/22/24 16:21 Freq: Status: Active Protocol: Document 10/22/24 16:22 AIR TRAFFIC SYSTEMS TECHNICIAN (Rec: 10/22/24 18:32 AIR TRAFFIC SYSTEMS TECHNICIAN Laptop) OP Gait Assessment Comments Gait Comments Slight varus of RLE, equal stride length and stance time, B slightly decreased heel strike and toe off. No AD or balance concern Stair Climbing Evaluation Comments Stair Climbing 6 stairs reciprocal pattern able to recreate pain in R Comments medial knee with loading and unloading just before and after 90 degree knee flex PT-OP-K Range of Motion Start: 10/22/24 16:21 Freq: Status: Active Protocol: Document 10/22/24 16:22 AIR TRAFFIC SYSTEMS TECHNICIAN (Rec: 10/22/24 18:32 AIR TRAFFIC SYSTEMS TECHNICIAN Laptop) Hip Goniometric Range of Motion Hip ROM Limitations Hip ROM Limitations Soft Tissue Tightness Comments R 90/90 test 167 degrees L 90/90 test 165 degrees R heel to butt 7.5 L heel to butt 7 B hip adductors minimally decreased Knee Goniometric Range of Motion Knee ROM Limitations Comments L knee ext 2 degrees R knee ext 6 degrees passive, active to 3 degrees with onset of pain to ant medial knee PT-OP-L Special Tests Start: 10/22/24 16:21 Freq: Status: Active Protocol: Document 10/22/24 16:22 AIR TRAFFIC SYSTEMS TECHNICIAN (Rec: 10/22/24 18:32 AIR TRAFFIC SYSTEMS TECHNICIAN Laptop) Special Tests Knee Special Tests Varus- 25 Degrees Test Results negative Comments RLE Valgus- 0 Degrees Test Results negative Comments RLE Posterior Draw Test Results negative Comments RLE Thessaly Test 20 Degrees Test Results Slightly positive Comments RLE Anterior Draw Test Results negative Comments RLE PT-OP-M Strength Start: 10/22/24 16:21 Freq: Status: Active Protocol: Document 10/22/24 16:22 AIR TRAFFIC SYSTEMS TECHNICIAN (Rec: 10/22/24 18:32 AIR TRAFFIC SYSTEMS TECHNICIAN Laptop) Hip Strength Hip Manual Muscle Testing L Flexion (L2) 4+ Good+ Extension (S1) 4 Good Abduction 4 Good External Rotation 4 Good R Flexion (L2) 4 Good Extension (S1) 4 Good Abduction 4+ Good+ External Rotation 4 Good Knee Strength Knee Manual Muscle Testing L Flexion (S2) 5 Normal Extension (L3) 5 Normal R Flexion (S2) 5 Normal Extension (L3) 4+ Good+ Ankle/Foot Strength Ankle and Foot Manual Muscle Testing L Dorsiflexion (L4) 5 Normal R Dorsiflexion (L4) 4 Good PT-OP-T Assessment and Plan Start: 10/22/24 16:21 Freq: Status: Active Protocol: Document 10/22/24 16:22 AIR TRAFFIC SYSTEMS TECHNICIAN (Rec: 10/22/24 18:32 AIR TRAFFIC SYSTEMS TECHNICIAN Laptop) Physical Therapy Assessment Rehab Potential Rehabilitation Good Potential Evaluation Complexity Number of Personal 1-2 Factors/ Comorbidities Number of Body 3 Systems Impaired Clinical Stable Presentation at Evaluation Impairments Impairments Activity Tolerance,Functional Activities,Functional Mobility,Gait,Pain,Soft Tissue Mobility,Strength Goals 3 Impairment Function Impairment Decreased LEFS score Buggy Driver Goal (LTG) Pt will improve score of LEFS test from 50/80 to at least 60/80 to improve function. LTG Duration 12 weeks 2 Impairment Pain Impairment Pain with amb up and down stairs Short Term Goal (STG Pt will perform step up/down with R knee on 4 step x5 ) without pain to improve function STG Duration 6 weeks Buggy Driver Goal (LTG) Pt will ascend/descend 8 6 stairs with reciprocal pattern without pain in R knee without BUE support. LTG Duration 12 weeks 1 Impairment ROM Impairment B quad ROM Short Term Goal (STG Pt will improve ROM of B quads to 5 heel to butt to ) improve function STG Duration 6 weeks Nursing Home Goal (LTG) Pt will improve ROM of B quads to 3 heel to butt to improve function LTG Duration 12 weeks Assessment Summary Assessment Pt presents with R medial knee pain with constant dull nature and is most bothersome when driving. Pt demonstrates mild weakness in R hip and ankle vs LLE and decreased ROM of B quads and resting R knee ext. Pt with decreased medial glide of R patella, tenderness to palpation to medial R knee, and slightly positive Thessaly test. Pt reports no recent trauma to cause R knee pain, however R knee MRI from 2020 in chart reports medial meniscus tear. Pt's signs and symptoms may be consistent with chronic irritation of R medial meniscus and would highly benefit from skilled PT intervention to improve function. Physical Therapy Plan Frequency and Duration Frequency of 2x/Week Treatment Duration of 12 treatment (weeks) Plan of Care Start 10/22/24 Date Plan of Care End 01/14/25 Date Therapeutic Interventions Therapeutic Gait Training,Home Exercise Program,Manual Therapy, Interventions Neuromuscular Re-education,Soft Tissue Mobilization, Taping,Therapeutic Activities,Therapeutic Exercises Modalities Cold Pack/Ice Massage,Hot Packs,Ultrasound Next Visit Focus/Plan Next Note Type Treatment Note Next Visit Plan Palpation/TFM to R medial knee, B hip HEP, stretch B quads
--- NOTE | 2024-10-22 18:36 | PT.OPPOC ---
Physical, Occupational & Speech Therapy At [facility] Current Diagnoses Pain in right hip (10/22/24) Visit Care Team Role Provider Type Baldomero Pelaez MD Attending Provider Physician Family Provider Primary Care Provider Referring Provider Specialty: Family Practice Address[place], [address] Email: [email or web address] Plan Of Care PT-OP-B Current Condition Start: 10/22/24 16:21 Freq: Status: Active Protocol: Document 10/22/24 16:22 SECURITY SME (Rec: 10/22/24 18:32 SECURITY SME Laptop) Current Condition History of Current Condition Onset Date ~1.5 years Current Complaints R knee and groin pain History of Current Has pain in R medial knee, especially notices when Condition driving as pain goes straight from medial knee up to R groin. Pain ranges from 0-6/10 at rest. Pt is working with a household personal assistant about 2x/wk and feels pain is getting better. Sometimes has pain when walking the neighborhood with spouse and sometimes not. Prior Treatments and MRI R knee 2020 Complex tear of the posterior horn Tests body of the medial meniscus. X-Ray R hip 10/08/24 SI and hip joints: Mild degeneration of both joints. Moderate L5-S1 degenerative disc and facet disease. Treatment Goals Patient/Caregiver To see if there's anything to do to help the pain. Goals PT-OP-T Assessment and Plan Start: 10/22/24 16:21 Freq: Status: Active Protocol: Document 10/22/24 16:22 SECURITY SME (Rec: 10/22/24 18:32 SECURITY SME Laptop) Physical Therapy Assessment Rehab Potential Rehabilitation Good Potential Evaluation Complexity Number of Personal 1-2 Factors/ Comorbidities Number of Body 3 Systems Impaired Clinical Stable Presentation at Evaluation Impairments Impairments Activity Tolerance,Functional Activities,Functional Mobility,Gait,Pain,Soft Tissue Mobility,Strength Goals 3 Impairment Function Impairment Decreased LEFS score Car Whacker Goal (LTG) Pt will improve score of LEFS test from 50/80 to at least 60/80 to improve function. LTG Duration 12 weeks 2 Impairment Pain Impairment Pain with amb up and down stairs Short Term Goal (STG Pt will perform step up/down with R knee on 4 step x5 ) without pain to improve function STG Duration 6 weeks Car Whacker Goal (LTG) Pt will ascend/descend 8 6 stairs with reciprocal pattern without pain in R knee without BUE support. LTG Duration 12 weeks 1 Impairment ROM Impairment B quad ROM Short Term Goal (STG Pt will improve ROM of B quads to 5 heel to butt to ) improve function STG Duration 6 weeks Car Whacker Goal (LTG) Pt will improve ROM of B quads to 3 heel to butt to improve function LTG Duration 12 weeks Assessment Summary Assessment Pt presents with R medial knee pain with constant dull nature and is most bothersome when driving. Pt demonstrates mild weakness in R hip and ankle vs LLE and decreased ROM of B quads and resting R knee ext. Pt with decreased medial glide of R patella, tenderness to palpation to medial R knee, and slightly positive Thessaly test. Pt reports no recent trauma to cause R knee pain, however R knee MRI from 2020 in chart reports medial meniscus tear. Pt's signs and symptoms may be consistent with chronic irritation of R medial meniscus and would highly benefit from skilled PT intervention to improve function. Physical Therapy Plan Frequency and Duration Frequency of 2x/Week Treatment Duration of 12 treatment (weeks) Plan of Care Start 10/22/24 Date Plan of Care End 01/14/25 Date Therapeutic Interventions Therapeutic Gait Training,Home Exercise Program,Manual Therapy, Interventions Neuromuscular Re-education,Soft Tissue Mobilization, Taping,Therapeutic Activities,Therapeutic Exercises Modalities Cold Pack/Ice Massage,Hot Packs,Ultrasound Next Visit Focus/Plan Next Note Type Treatment Note Next Visit Plan Palpation/TFM to R medial knee, B hip HEP, stretch B quads Plan of Care Dates Plan of Care Start Date 10/22/24 Plan of Care End Date 01/14/25 Electronically Signed by: Magy Calle, PT 10/22/24 [id number] If you are in agreement with this Plan of Care, please return a signed and dated copy. I have reviewed this Plan of Care and certify that the skilled therapy services above are required to meet the patient?s needs. Physician Signature Date Printed Name and Credentials Clinical Instructor Signature Printed Name and Credentials
--- NOTE | 2024-10-24 19:54 | PT.OTN ---
Current Diagnoses Pain in right hip (10/24/24) Physical Therapy Treatment Note PT-OP-A Visit Information Start: 10/22/24 16:21 Freq: Status: Active Protocol: Document 10/24/24 16:18 SHEET METAL DUCT INSTALLER APPRENTICE (Rec: 10/24/24 17:05 SHEET METAL DUCT INSTALLER APPRENTICE Laptop) Out-Patient Physical Therapy Visit Information Visit Information Visit Type Treatment Note Visit Note Shortened session d/t tardiness Visit Start Time 16:28 Visit Stop Time 17:00 Visit Number 2 Number of COMMODITY INDUSTRY ANALYST Visits 0 Evaluation Information Evaluation Date 10/22/24 Precautions Precautions None PT-OP-B Current Condition Start: 10/22/24 16:21 Freq: Status: Active Protocol: Document 10/22/24 16:22 SHEET METAL DUCT INSTALLER APPRENTICE (Rec: 10/22/24 18:32 SHEET METAL DUCT INSTALLER APPRENTICE Laptop) Current Condition History of Current Condition Onset Date ~1.5 years Current Complaints R knee and groin pain History of Current Has pain in R medial knee, especially notices when Condition driving as pain goes straight from medial knee up to R groin. Pain ranges from 0-6/10 at rest. Pt is working with a personal development coach about 2x/wk and feels pain is getting better. Sometimes has pain when walking the neighborhood with spouse and sometimes not. Prior Treatments and MRI R knee 2020 Complex tear of the posterior horn Tests body of the medial meniscus. X-Ray R hip 10/08/24 SI and hip joints: Mild degeneration of both joints. Moderate L5-S1 degenerative disc and facet disease. Treatment Goals Patient/Caregiver To see if there's anything to do to help the pain. Goals PT-OP-C Subjective Start: 10/22/24 16:21 Freq: Status: Active Protocol: Document 10/24/24 16:18 SHEET METAL DUCT INSTALLER APPRENTICE (Rec: 10/24/24 19:28 SHEET METAL DUCT INSTALLER APPRENTICE Laptop) OP-PT Subjective Patient Comments Patient Comments Pt reports soreness after eval but currently 2/10 in R groin. Patient Reported Same Progress PT-OP-F Manual Assessment Start: 10/22/24 16:21 Freq: Status: Active Protocol: Document 10/22/24 16:22 SHEET METAL DUCT INSTALLER APPRENTICE (Rec: 10/22/24 18:32 SHEET METAL DUCT INSTALLER APPRENTICE Laptop) Manual Assessments Soft Tissue Assessment Soft Tissue Mobility TTP to R medial knee, just medial of patella Assessment Joint Mobility Assessment Joint Mobility Slight-moderately decreased medial glide of R patella Assessment PT-OP-G Mobility & Gait Start: 10/22/24 16:21 Freq: Status: Active Protocol: Document 10/22/24 16:22 SHEET METAL DUCT INSTALLER APPRENTICE (Rec: 10/22/24 18:32 SHEET METAL DUCT INSTALLER APPRENTICE Laptop) OP Gait Assessment Comments Gait Comments Slight varus of RLE, equal stride length and stance time, B slightly decreased heel strike and toe off. No AD or balance concern Stair Climbing Evaluation Comments Stair Climbing 6 stairs reciprocal pattern able to recreate pain in R Comments medial knee with loading and unloading just before and after 90 degree knee flex PT-OP-K Range of Motion Start: 10/22/24 16:21 Freq: Status: Active Protocol: Document 10/22/24 16:22 SHEET METAL DUCT INSTALLER APPRENTICE (Rec: 10/22/24 18:32 SHEET METAL DUCT INSTALLER APPRENTICE Laptop) Hip Goniometric Range of Motion Hip ROM Limitations Hip ROM Limitations Soft Tissue Tightness Comments R 90/90 test 167 degrees L 90/90 test 165 degrees R heel to butt 7.5 L heel to butt 7 B hip adductors minimally decreased Knee Goniometric Range of Motion Knee ROM Limitations Comments L knee ext 2 degrees R knee ext 6 degrees passive, active to 3 degrees with onset of pain to ant medial knee PT-OP-L Special Tests Start: 10/22/24 16:21 Freq: Status: Active Protocol: Document 10/22/24 16:22 SHEET METAL DUCT INSTALLER APPRENTICE (Rec: 10/22/24 18:32 SHEET METAL DUCT INSTALLER APPRENTICE Laptop) Special Tests Knee Special Tests Varus- 25 Degrees Test Results negative Comments RLE Valgus- 0 Degrees Test Results negative Comments RLE Posterior Draw Test Results negative Comments RLE Thessaly Test 20 Degrees Test Results Slightly positive Comments RLE Anterior Draw Test Results negative Comments RLE PT-OP-M Strength Start: 10/22/24 16:21 Freq: Status: Active Protocol: Document 10/22/24 16:22 SHEET METAL DUCT INSTALLER APPRENTICE (Rec: 10/22/24 18:32 SHEET METAL DUCT INSTALLER APPRENTICE Laptop) Hip Strength Hip Manual Muscle Testing L Flexion (L2) 4+ Good+ Extension (S1) 4 Good Abduction 4 Good External Rotation 4 Good R Flexion (L2) 4 Good Extension (S1) 4 Good Abduction 4+ Good+ External Rotation 4 Good Knee Strength Knee Manual Muscle Testing L Flexion (S2) 5 Normal Extension (L3) 5 Normal R Flexion (S2) 5 Normal Extension (L3) 4+ Good+ Ankle/Foot Strength Ankle and Foot Manual Muscle Testing L Dorsiflexion (L4) 5 Normal R Dorsiflexion (L4) 4 Good PT-OP-Q Treatments Start: 10/22/24 16:21 Freq: Status: Active Protocol: Document 10/24/24 16:18 SHEET METAL DUCT INSTALLER APPRENTICE (Rec: 10/24/24 17:05 SHEET METAL DUCT INSTALLER APPRENTICE Laptop) Cardio Equipment Recumbent Stepper (Sci-Fit) Duration (Minutes) 3 Resistance L2 Seat Position 11 Other BLE warm up Therapeutic Exercises Supine Exercises Quad Set Supine Exercise Name 1. Straight quad set 2. ER quad set Side right Reps/Minutes 5s hold x10 each Comments Added to HEP Sitting Exercises Foam Roller Side right Equipment Used Large foam roller Comments Demonstration to perform as HEP HS Stretch Sitting Exercise Sitting Name Side right Reps/Minutes 60s x2 Comments Added to HEP Manual Therapy Treatment Consent Patient gave verbal Yes consent for manual treatment Soft Tissue Mobilization HS Body Location R Hamstring Mobilization Type Rolling,Trigger Point Release Intensity/Depth Moderate Body Position Prone Comments Large trigger point located middle proximal HS PT-OP-T Assessment and Plan Start: 10/22/24 16:21 Freq: Status: Active Protocol: Document 10/24/24 16:18 SHEET METAL DUCT INSTALLER APPRENTICE (Rec: 10/24/24 17:05 SHEET METAL DUCT INSTALLER APPRENTICE Laptop) Physical Therapy Assessment Impairments Impairments Activity Tolerance,Functional Activities,Functional Mobility,Gait,Pain,Soft Tissue Mobility,Strength Goals 3 Impairment Function Impairment Decreased LEFS score Manager Performance Goal (LTG) Pt will improve score of LEFS test from 50/80 to at least 60/80 to improve function. LTG Duration 12 weeks 2 Impairment Pain Impairment Pain with amb up and down stairs Short Term Goal (STG Pt will perform step up/down with R knee on 4 step x5 ) without pain to improve function STG Duration 6 weeks Fdc Goal (LTG) Pt will ascend/descend 8 6 stairs with reciprocal pattern without pain in R knee without BUE support. LTG Duration 12 weeks 1 Impairment ROM Impairment B quad ROM Short Term Goal (STG Pt will improve ROM of B quads to 5 heel to butt to ) improve function STG Duration 6 weeks Fdc Goal (LTG) Pt will improve ROM of B quads to 3 heel to butt to improve function LTG Duration 12 weeks Assessment Summary Assessment Pt tolerated light quad strengthening, manual therapy on R HS with significant trigger point noted to mid proximal HS, and seated HS stretching. HEP given Physical Therapy Plan Frequency and Duration Frequency of 2x/Week Treatment Duration of 12 treatment (weeks) Plan of Care Start 10/22/24 Date Plan of Care End 01/14/25 Date Therapeutic Interventions Therapeutic Gait Training,Home Exercise Program,Manual Therapy, Interventions Neuromuscular Re-education,Soft Tissue Mobilization, Taping,Therapeutic Activities,Therapeutic Exercises Modalities Cold Pack/Ice Massage,Hot Packs,Ultrasound Next Visit Focus/Plan Next Note Type Treatment Note Next Visit Plan Review HEP, advance quad sets to SAQs as able, STM to R HS
--- NOTE | 2024-10-29 18:31 | PT.OTN ---
Current Diagnoses Pain in right hip (10/29/24) Physical Therapy Treatment Note PT-OP-A Visit Information Start: 10/22/24 16:21 Freq: Status: Active Protocol: Document 10/29/24 16:20 MIX TECHNICIAN (Rec: 10/29/24 17:02 MIX TECHNICIAN Laptop) Out-Patient Physical Therapy Visit Information Visit Information Visit Type Treatment Note Visit Note Shortened session d/t tardiness Visit Start Time 16:24 Visit Stop Time 17:00 Visit Number 3 Number of REPORT CHECKER Visits 0 Evaluation Information Evaluation Date 10/22/24 Precautions Precautions None PT-OP-B Current Condition Start: 10/22/24 16:21 Freq: Status: Active Protocol: Document 10/22/24 16:22 MIX TECHNICIAN (Rec: 10/22/24 18:32 MIX TECHNICIAN Laptop) Current Condition History of Current Condition Onset Date ~1.5 years Current Complaints R knee and groin pain History of Current Has pain in R medial knee, especially notices when Condition driving as pain goes straight from medial knee up to R groin. Pain ranges from 0-6/10 at rest. 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 Sometimes has pain when walking the neighborhood with spouse and sometimes not. Prior Treatments and MRI R knee 2020 Complex tear of the posterior horn Tests body of the medial meniscus. X-Ray R hip 10/08/24 SI and hip joints: Mild degeneration of both joints. Moderate L5-S1 degenerative disc and facet disease. Treatment Goals Patient/Caregiver To see if there's anything to do to help the pain. Goals PT-OP-C Subjective Start: 10/22/24 16:21 Freq: Status: Active Protocol: Document 10/29/24 16:20 MIX TECHNICIAN (Rec: 10/29/24 17:02 MIX TECHNICIAN Laptop) OP-PT Subjective Patient Comments Patient Comments Pt reports he does not notice a change in pain, reports he has worked on HEP but not foam rolling his hamstring. Reports 05/31 to R medial knee currently. Patient Reported Same Progress PT-OP-F Manual Assessment Start: 10/22/24 16:21 Freq: Status: Active Protocol: Document 10/22/24 16:22 MIX TECHNICIAN (Rec: 10/22/24 18:32 MIX TECHNICIAN Laptop) Manual Assessments Soft Tissue Assessment Soft Tissue Mobility TTP to R medial knee, just medial of patella Assessment Joint Mobility Assessment Joint Mobility Slight-moderately decreased medial glide of R patella Assessment PT-OP-G Mobility & Gait Start: 10/22/24 16:21 Freq: Status: Active Protocol: Document 10/22/24 16:22 MIX TECHNICIAN (Rec: 10/22/24 18:32 MIX TECHNICIAN Laptop) OP Gait Assessment Comments Gait Comments Slight varus of RLE, equal stride length and stance time, B slightly decreased heel strike and toe off. No AD or balance concern Stair Climbing Evaluation Comments Stair Climbing 6 stairs reciprocal pattern able to recreate pain in R Comments medial knee with loading and unloading just before and after 90 degree knee flex PT-OP-K Range of Motion Start: 10/22/24 16:21 Freq: Status: Active Protocol: Document 10/22/24 16:22 MIX TECHNICIAN (Rec: 10/22/24 18:32 MIX TECHNICIAN Laptop) Hip Goniometric Range of Motion Hip ROM Limitations Hip ROM Limitations Soft Tissue Tightness Comments R 90/90 test 167 degrees L 90/90 test 165 degrees R heel to butt 7.5 L heel to butt 7 B hip adductors minimally decreased Knee Goniometric Range of Motion Knee ROM Limitations Comments L knee ext 2 degrees R knee ext 6 degrees passive, active to 3 degrees with onset of pain to ant medial knee PT-OP-L Special Tests Start: 10/22/24 16:21 Freq: Status: Active Protocol: Document 10/22/24 16:22 MIX TECHNICIAN (Rec: 10/22/24 18:32 MIX TECHNICIAN Laptop) Special Tests Knee Special Tests Varus- 25 Degrees Test Results negative Comments RLE Valgus- 0 Degrees Test Results negative Comments RLE Posterior Draw Test Results negative Comments RLE Thessaly Test 20 Degrees Test Results Slightly positive Comments RLE Anterior Draw Test Results negative Comments RLE PT-OP-M Strength Start: 10/22/24 16:21 Freq: Status: Active Protocol: Document 10/22/24 16:22 MIX TECHNICIAN (Rec: 10/22/24 18:32 MIX TECHNICIAN Laptop) Hip Strength Hip Manual Muscle Testing L Flexion (L2) 4+ Good+ Extension (S1) 4 Good Abduction 4 Good External Rotation 4 Good R Flexion (L2) 4 Good Extension (S1) 4 Good Abduction 4+ Good+ External Rotation 4 Good Knee Strength Knee Manual Muscle Testing L Flexion (S2) 5 Normal Extension (L3) 5 Normal R Flexion (S2) 5 Normal Extension (L3) 4+ Good+ Ankle/Foot Strength Ankle and Foot Manual Muscle Testing L Dorsiflexion (L4) 5 Normal R Dorsiflexion (L4) 4 Good PT-OP-Q Treatments Start: 10/22/24 16:21 Freq: Status: Active Protocol: Document 10/29/24 16:20 MIX TECHNICIAN (Rec: 10/29/24 17:02 MIX TECHNICIAN Laptop) Gym Equipment Shuttle Recovery Double leg Details 1. No band 2. L2 TB around knees for glute med activation 3. L2 TB+heel WB Resistance 1. 75 lbs 2. 75 lbs +100 lbs 3. 100 lbs Shuttle Recovery Stable Platform Reps/Time 1. x15 2. x15 each weight 3. x15 Therapeutic Exercises Sidelying Exercises HS curls Sidelying Exercise to neutral to prevent cramp Name Side right Reps/Minutes 10x2 Standing Exercises Stretch Standing Exercise 1. HF stretch 2. Gastroc stretch Name Side right Equipment Used support surface, 6 stair for gastroc Reps/Minutes 1. 30s x2 2. 60s x2 Manual Therapy Treatment Consent Patient gave verbal Yes consent for manual treatment Soft Tissue Mobilization Gastroc Body Location R gastroc Mobilization Type Rolling,Trigger Point Release Intensity/Depth Moderate Body Position Prone Comments Large trigger point located mid gastroc HS Body Location R Hamstring Mobilization Type Rolling,Trigger Point Release Intensity/Depth Moderate Body Position Prone Comments Large trigger point located middle proximal HS PT-OP-T Assessment and Plan Start: 10/22/24 16:21 Freq: Status: Active Protocol: Document 10/29/24 16:20 MIX TECHNICIAN (Rec: 10/29/24 17:02 MIX TECHNICIAN Laptop) Physical Therapy Assessment Impairments Impairments Activity Tolerance,Functional Activities,Functional Mobility,Gait,Pain,Soft Tissue Mobility,Strength Goals 3 Impairment Function Impairment Decreased LEFS score Care Home Goal (LTG) Pt will improve score of LEFS test from 50/80 to at least 60/80 to improve function. LTG Duration 12 weeks 2 Impairment Pain Impairment Pain with amb up and down stairs Short Term Goal (STG Pt will perform step up/down with R knee on 4 step x5 ) without pain to improve function STG Duration 6 weeks Care Home Goal (LTG) Pt will ascend/descend 8 6 stairs with reciprocal pattern without pain in R knee without BUE support. LTG Duration 12 weeks 1 Impairment ROM Impairment B quad ROM Short Term Goal (STG Pt will improve ROM of B quads to 5 heel to butt to ) improve function STG Duration 6 weeks Leather Cutter Goal (LTG) Pt will improve ROM of B quads to 3 heel to butt to improve function LTG Duration 12 weeks Progress Towards Goals Progress Towards Progressing Toward Goals Goals Assessment Summary Assessment Pt tolerated moderate STM to R HS and gastroc with decreased size of HS trigger point and large trigger point noted to R mid gastroc this session. Pt would benefit from continued stretching to R HS, gastroc, and HF. Pt tolerated BLE squats on shuttle recovery at 100lbs and will benefit from progressed closed-chain quad/HS strengthening at next session. Pt reports slight increased pain to R medial knee at end of session. Physical Therapy Plan Frequency and Duration Frequency of 2x/Week Treatment Duration of 12 treatment (weeks) Plan of Care Start 10/22/24 Date Plan of Care End 01/14/25 Date Therapeutic Interventions Therapeutic Gait Training,Home Exercise Program,Manual Therapy, Interventions Neuromuscular Re-education,Soft Tissue Mobilization, Taping,Therapeutic Activities,Therapeutic Exercises Modalities Cold Pack/Ice Massage,Hot Packs,Ultrasound Next Visit Focus/Plan Next Note Type Treatment Note Next Visit Plan advance quad sets to SAQs as able, STM to R HS and gastroc, single leg shuttle recovery
--- NOTE | 2024-10-31 18:17 | PT.OTN ---
Current Diagnoses Pain in right hip (10/31/24) Physical Therapy Treatment Note PT-OP-A Visit Information Start: 10/22/24 16:21 Freq: Status: Active Protocol: Document 10/31/24 16:16 GROUND SUPPORT EQUIPMENT FITTER (Rec: 10/31/24 17:00 GROUND SUPPORT EQUIPMENT FITTER Laptop) Out-Patient Physical Therapy Visit Information Visit Information Visit Type Treatment Note Visit Start Time 16:15 Visit Stop Time 16:58 Visit Number 4 Number of TRACK RIDER Visits 0 PT-OP-B Current Condition Start: 10/22/24 16:21 Freq: Status: Active Protocol: Document 10/22/24 16:22 GROUND SUPPORT EQUIPMENT FITTER (Rec: 10/22/24 18:32 GROUND SUPPORT EQUIPMENT FITTER Laptop) Current Condition History of Current Condition Onset Date ~1.5 years Current Complaints R knee and groin pain History of Current Has pain in R medial knee, especially notices when Condition driving as pain goes straight from medial knee up to R groin. Pain ranges from 0-6/10 at rest. 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 Sometimes has pain when walking the neighborhood with spouse and sometimes not. Prior Treatments and MRI R knee 2020 Complex tear of the posterior horn Tests body of the medial meniscus. X-Ray R hip 10/08/24 SI and hip joints: Mild degeneration of both joints. Moderate L5-S1 degenerative disc and facet disease. Treatment Goals Patient/Caregiver To see if there's anything to do to help the pain. Goals PT-OP-C Subjective Start: 10/22/24 16:21 Freq: Status: Active Protocol: Document 10/31/24 16:16 GROUND SUPPORT EQUIPMENT FITTER (Rec: 10/31/24 17:00 GROUND SUPPORT EQUIPMENT FITTER Laptop) OP-PT Subjective Patient Comments Patient Comments Pt reports pain has been the same, intermittent R groin pain while driving and R medial knee pain currently at 2/10. Pt reports he has not had time to practice HEP at home. Reports he will not be available next week for PT session and will try hard to perform HEP. Patient Reported Same Progress PT-OP-F Manual Assessment Start: 10/22/24 16:21 Freq: Status: Active Protocol: Document 10/22/24 16:22 GROUND SUPPORT EQUIPMENT FITTER (Rec: 10/22/24 18:32 GROUND SUPPORT EQUIPMENT FITTER Laptop) Manual Assessments Soft Tissue Assessment Soft Tissue Mobility TTP to R medial knee, just medial of patella Assessment Joint Mobility Assessment Joint Mobility Slight-moderately decreased medial glide of R patella Assessment PT-OP-G Mobility & Gait Start: 10/22/24 16:21 Freq: Status: Active Protocol: Document 10/22/24 16:22 GROUND SUPPORT EQUIPMENT FITTER (Rec: 10/22/24 18:32 GROUND SUPPORT EQUIPMENT FITTER Laptop) OP Gait Assessment Comments Gait Comments Slight varus of RLE, equal stride length and stance time, B slightly decreased heel strike and toe off. No AD or balance concern Stair Climbing Evaluation Comments Stair Climbing 6 stairs reciprocal pattern able to recreate pain in R Comments medial knee with loading and unloading just before and after 90 degree knee flex PT-OP-K Range of Motion Start: 10/22/24 16:21 Freq: Status: Active Protocol: Document 10/22/24 16:22 GROUND SUPPORT EQUIPMENT FITTER (Rec: 10/22/24 18:32 GROUND SUPPORT EQUIPMENT FITTER Laptop) Hip Goniometric Range of Motion Hip ROM Limitations Hip ROM Limitations Soft Tissue Tightness Comments R 90/90 test 167 degrees L 90/90 test 165 degrees R heel to butt 7.5 L heel to butt 7 B hip adductors minimally decreased Knee Goniometric Range of Motion Knee ROM Limitations Comments L knee ext 2 degrees R knee ext 6 degrees passive, active to 3 degrees with onset of pain to ant medial knee PT-OP-L Special Tests Start: 10/22/24 16:21 Freq: Status: Active Protocol: Document 10/22/24 16:22 GROUND SUPPORT EQUIPMENT FITTER (Rec: 10/22/24 18:32 GROUND SUPPORT EQUIPMENT FITTER Laptop) Special Tests Knee Special Tests Varus- 25 Degrees Test Results negative Comments RLE Valgus- 0 Degrees Test Results negative Comments RLE Posterior Draw Test Results negative Comments RLE Thessaly Test 20 Degrees Test Results Slightly positive Comments RLE Anterior Draw Test Results negative Comments RLE PT-OP-M Strength Start: 10/22/24 16:21 Freq: Status: Active Protocol: Document 10/22/24 16:22 GROUND SUPPORT EQUIPMENT FITTER (Rec: 10/22/24 18:32 GROUND SUPPORT EQUIPMENT FITTER Laptop) Hip Strength Hip Manual Muscle Testing L Flexion (L2) 4+ Good+ Extension (S1) 4 Good Abduction 4 Good External Rotation 4 Good R Flexion (L2) 4 Good Extension (S1) 4 Good Abduction 4+ Good+ External Rotation 4 Good Knee Strength Knee Manual Muscle Testing L Flexion (S2) 5 Normal Extension (L3) 5 Normal R Flexion (S2) 5 Normal Extension (L3) 4+ Good+ Ankle/Foot Strength Ankle and Foot Manual Muscle Testing L Dorsiflexion (L4) 5 Normal R Dorsiflexion (L4) 4 Good PT-OP-Q Treatments Start: 10/22/24 16:21 Freq: Status: Active Protocol: Document 10/31/24 16:16 GROUND SUPPORT EQUIPMENT FITTER (Rec: 10/31/24 17:00 GROUND SUPPORT EQUIPMENT FITTER Laptop) Gym Equipment Shuttle Recovery Double leg Resistance 75 lbs Shuttle Recovery Stable Platform Reps/Time x13 for warm up Therapeutic Exercises Supine Exercises SLR Supine Exercise Name 1. SLR neutral rotation 2. ER SLR Side right Reps/Minutes 10x2 each exercise Comments VC to not hold breath Stretch Supine Exercise Name Hip flexor stretch off edge of bed Side bilateral Reps/Minutes 60s Prone Exercises HS curls Side right Resistance 2lb ankle weight, 4lb ankle weight Reps/Minutes 10x3 each weight Comments ratcheting pattern on eccentric Standing Exercises Squats Resistance L2 TB around knees Reps/Minutes 10x2 Comments VC for upright chest and WS through heels Stretch Standing Exercise 1. HS stretch 2. Gastroc stretch Name Side right Equipment Used 6 stair Reps/Minutes 60s x2 each exercise Manual Therapy Treatment Consent Patient gave verbal Yes consent for manual treatment Soft Tissue Mobilization Medial Knee Body Location R Intensity/Depth Moderate Body Position Prone Comments ice massage to medial R knee for decreased pain and inflammation at start of session PT-OP-T Assessment and Plan Start: 10/22/24 16:21 Freq: Status: Active Protocol: Document 10/31/24 16:16 GROUND SUPPORT EQUIPMENT FITTER (Rec: 10/31/24 17:00 GROUND SUPPORT EQUIPMENT FITTER Laptop) Physical Therapy Assessment Impairments Impairments Activity Tolerance,Functional Activities,Functional Mobility,Gait,Pain,Soft Tissue Mobility,Strength Goals 3 Impairment Function Impairment Decreased LEFS score Fermenter Goal (LTG) Pt will improve score of LEFS test from 50/80 to at least 60/80 to improve function. LTG Duration 12 weeks Progress Towards Goals Progress Towards Slow Progress due to Noncompliance Goals Assessment Summary Assessment Pt tolerated ice massage to R medial knee for decreased inflammation and pain control at start of session with noted decreased trigger points to R HS, progression of SAQs to SLR for quad strengthening this session, RLE stretching, progression of weight for HS strengthening, and closed chain loading of quads via squats, however pt reports increase of R knee pain from 2 to 4/10 by end of session. Recommended pt to apply ice to area after session. Physical Therapy Plan Frequency and Duration Frequency of 2x/Week Treatment Duration of 12 treatment (weeks) Plan of Care Start 10/22/24 Date Plan of Care End 01/14/25 Date Therapeutic Interventions Therapeutic Gait Training,Home Exercise Program,Manual Therapy, Interventions Neuromuscular Re-education,Soft Tissue Mobilization, Taping,Therapeutic Activities,Therapeutic Exercises Modalities Cold Pack/Ice Massage,Hot Packs,Ultrasound Next Visit Focus/Plan Next Note Type Treatment Note Next Visit Plan STM to R HS and gastroc, single leg shuttle recovery, katty, advance HS strengthening
--- NOTE | 2025-01-30 15:36 | PT.OPDS ---
Pt last seen 10/31 with no follow up to schedule more appointments before POC on 01/14. Will D/C from PT and will need new doctor's referral and initial evaluation to continue PT if needed. Current Diagnoses Pain in right hip (10/31/24) Visit Care Team Role Provider Type Baldomero Pelaez MD Attending Provider Physician Family Provider Primary Care Provider Referring Provider Specialty: Family Practice Address: [facility] [place], [facility] Email: [email or web address] Visit Number Visit Number 4 Discharge Summary PT-OP-A Visit Information Start: 10/22/24 16:21 Freq: Status: Active Protocol: Document 10/31/24 16:16 LAUNDRY OPERATOR (Rec: 10/31/24 17:00 LAUNDRY OPERATOR Laptop) Out-Patient Physical Therapy Visit Information Visit Information Visit Type Treatment Note Visit Start Time 16:15 Visit Stop Time 16:58 Visit Number 4 Number of PERIODICALS LIBRARY ASSISTANT Visits 0 PT-OP-B Current Condition Start: 10/22/24 16:21 Freq: Status: Active Protocol: Document 10/22/24 16:22 LAUNDRY OPERATOR (Rec: 10/22/24 18:32 LAUNDRY OPERATOR Laptop) Current Condition History of Current Condition Onset Date ~1.5 years Current Complaints R knee and groin pain History of Current Has pain in R medial knee, especially notices when Condition driving as pain goes straight from medial knee up to R groin. Pain ranges from 0-6/10 at rest. 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 Sometimes has pain when walking the neighborhood with spouse and sometimes not. Prior Treatments and MRI R knee 2020 Complex tear of the posterior horn Tests body of the medial meniscus. X-Ray R hip 10/08/24 SI and hip joints: Mild degeneration of both joints. Moderate L5-S1 degenerative disc and facet disease. Treatment Goals Patient/Caregiver To see if there's anything to do to help the pain. Goals PT-OP-C Subjective Start: 10/22/24 16:21 Freq: Status: Active Protocol: Document 10/31/24 16:16 LAUNDRY OPERATOR (Rec: 10/31/24 17:00 LAUNDRY OPERATOR Laptop) OP-PT Subjective Patient Comments Patient Comments Pt reports pain has been the same, intermittent R groin pain while driving and R medial knee pain currently at 2/10. Pt reports he has not had time to practice HEP at home. Reports he will not be available next week for PT session and will try hard to perform HEP. Patient Reported Same Progress PT-OP-F Manual Assessment Start: 10/22/24 16:21 Freq: Status: Active Protocol: Document 10/22/24 16:22 LAUNDRY OPERATOR (Rec: 10/22/24 18:32 LAUNDRY OPERATOR Laptop) Manual Assessments Soft Tissue Assessment Soft Tissue Mobility TTP to R medial knee, just medial of patella Assessment Joint Mobility Assessment Joint Mobility Slight-moderately decreased medial glide of R patella Assessment PT-OP-G Mobility & Gait Start: 10/22/24 16:21 Freq: Status: Active Protocol: Document 10/22/24 16:22 LAUNDRY OPERATOR (Rec: 10/22/24 18:32 LAUNDRY OPERATOR Laptop) OP Gait Assessment Comments Gait Comments Slight varus of RLE, equal stride length and stance time, B slightly decreased heel strike and toe off. No AD or balance concern Stair Climbing Evaluation Comments Stair Climbing 6 stairs reciprocal pattern able to recreate pain in R Comments medial knee with loading and unloading just before and after 90 degree knee flex PT-OP-K Range of Motion Start: 10/22/24 16:21 Freq: Status: Active Protocol: Document 10/22/24 16:22 LAUNDRY OPERATOR (Rec: 10/22/24 18:32 LAUNDRY OPERATOR Laptop) Hip Goniometric Range of Motion Hip ROM Limitations Hip ROM Limitations Soft Tissue Tightness Comments R 90/90 test 167 degrees L 90/90 test 165 degrees R heel to butt 7.5 L heel to butt 7 B hip adductors minimally decreased Knee Goniometric Range of Motion Knee ROM Limitations Comments L knee ext 2 degrees R knee ext 6 degrees passive, active to 3 degrees with onset of pain to ant medial knee PT-OP-L Special Tests Start: 10/22/24 16:21 Freq: Status: Active Protocol: Document 10/22/24 16:22 LAUNDRY OPERATOR (Rec: 10/22/24 18:32 LAUNDRY OPERATOR Laptop) Special Tests Knee Special Tests Varus- 25 Degrees Test Results negative Comments RLE Valgus- 0 Degrees Test Results negative Comments RLE Posterior Draw Test Results negative Comments RLE Thessaly Test 20 Degrees Test Results Slightly positive Comments RLE Anterior Draw Test Results negative Comments RLE PT-OP-M Strength Start: 10/22/24 16:21 Freq: Status: Active Protocol: Document 10/22/24 16:22 LAUNDRY OPERATOR (Rec: 10/22/24 18:32 LAUNDRY OPERATOR Laptop) Hip Strength Hip Manual Muscle Testing L Flexion (L2) 4+ Good+ Extension (S1) 4 Good Abduction 4 Good External Rotation 4 Good R Flexion (L2) 4 Good Extension (S1) 4 Good Abduction 4+ Good+ External Rotation 4 Good Knee Strength Knee Manual Muscle Testing L Flexion (S2) 5 Normal Extension (L3) 5 Normal R Flexion (S2) 5 Normal Extension (L3) 4+ Good+ Ankle/Foot Strength Ankle and Foot Manual Muscle Testing L Dorsiflexion (L4) 5 Normal R Dorsiflexion (L4) 4 Good PT-OP-T Assessment and Plan Start: 10/22/24 16:21 Freq: Status: Active Protocol: Document 10/31/24 16:16 LAUNDRY OPERATOR (Rec: 10/31/24 17:00 LAUNDRY OPERATOR Laptop) Physical Therapy Assessment Impairments Impairments Activity Tolerance,Functional Activities,Functional Mobility,Gait,Pain,Soft Tissue Mobility,Strength Goals 3 Impairment Function Impairment Decreased LEFS score Sea Foam Kiss Maker Goal (LTG) Pt will improve score of LEFS test from 50/80 to at least 60/80 to improve function. LTG Duration 12 weeks Progress Towards Goals Progress Towards Slow Progress due to Noncompliance Goals Assessment Summary Assessment Pt tolerated ice massage to R medial knee for decreased inflammation and pain control at start of session with noted decreased trigger points to R HS, progression of SAQs to SLR for quad strengthening this session, RLE stretching, progression of weight for HS strengthening, and closed chain loading of quads via squats, however pt reports increase of R knee pain from 2 to 4/10 by end of session. Recommended pt to apply ice to area after session. Physical Therapy Plan Frequency and Duration Frequency of 2x/Week Treatment Duration of 12 treatment (weeks) Plan of Care Start 10/22/24 Date Plan of Care End 01/14/25 Date Therapeutic Interventions Therapeutic Gait Training,Home Exercise Program,Manual Therapy, Interventions Neuromuscular Re-education,Soft Tissue Mobilization, Taping,Therapeutic Activities,Therapeutic Exercises Modalities Cold Pack/Ice Massage,Hot Packs,Ultrasound Next Visit Focus/Plan Next Note Type Treatment Note Next Visit Plan STM to R HS and gastroc, single leg shuttle recovery, clamshells, noam strengthening
== END 2025-02-04 09:25 | disposition home or self-care (01) ==
LOC: PHYS 16:15
PROVIDERS: Family Provider Family Medicine; PCP Family Medicine; Referring Provider Family Medicine; Visit Provider Family Medicine
DX: M25.551 Pain in right hip (principal)
CPT/HCPCS: 97110; 97140; 97162

== ENCOUNTER → 2025-04-25 08:11 | Outpatient (CLI) | payer MEDICARE, OTHER, SELFPAY ==
[2020-08-19 22:24] VITALS: BMI 31.1
[2025-04-25 09:08] LABS: Add Manual Diff / Slide Review NO; Hematocrit 44.5 % (41-53); Hemoglobin 15.3 g/dL (13.5-17.5); Lymphocytes Absolute Auto 1800 /uL (1100-4500); Mean Corpuscular HGB Conc 34.5 % (30-36); Mean Corpuscular Hemoglobin 30.8 PG (26-34); Mean Corpuscular Volume 89.2 fL (80-100); Platelet Count 311 X10^3/uL (150-400)
[2025-04-25 09:37] LABS: Alanine Aminotransferase 38 IU/L (<50); Albumin 4.2 g/dL (3.5-5.0); Albumin Globulin Ratio 1.6 (1.0-2.8); Alkaline Phosphatase 58 U/L (38-126); Blood Urea Nitrogen 16 mg/dL (9-20); Calcium 9.7 mg/dL (8.4-10.2); Carbon Dioxide 26 mmol/L (22-32); Chloride 105 mmol/L (98-107); Cholesterol 156 mg/dL (140-199); Estimated Glomerular Filt Rate > 60 mL/min (>60); Globulin 2.6 g/dL (1.7-4.1); Glucose 98 mg/dL (70-99); HDL Cholesterol 49 mg/dL (40-60); HEMOLYSIS < 15 (0-50); Potassium 5.1 mmol/L (3.4-5.1); Sodium 138 mmol/L (137-145); Total Protein 6.8 g/dL (6.3-8.2); Triglycerides 99 mg/dL (35-150); VLDL Cholesterol Calculated 20 mg/dL (2-30)
[2025-04-25 09:54] LABS: Free T4, Direct Thyroxine 1.06 ng/dL (0.78-2.19)
[2025-04-25 10:08] LABS: Prostate Specific Antigen 2.49 ng/mL (0.10-4.00); Thyroid Stimulating Hormone 1.53 uIU/mL (0.47-4.68)
== END ==
PROVIDERS: Family Provider Family Medicine; PCP Family Medicine; Referring Provider Family Medicine; Visit Provider Internal Medicine Cardiovascular Disease
DX: Z12.5 Encounter for screening for malignant neoplasm of prostate (principal); R35.1 Nocturia; E78.2 Mixed hyperlipidemia; E78.5 Hyperlipidemia, unspecified; I10 Essential (primary) hypertension; I25.10 Atherosclerotic heart disease of native coronary artery without angina pectoris
CPT/HCPCS: 36415; 80053; 80061; 84153; 84439; 84443; 85025